=== PATIENT | female | born 1950 | race Caucasian/White ===

== ENCOUNTER → 2017-09-24 | Outpatient (CLI) | payer OTHER, MEDICAID | END | disposition home or self-care (01) | LOC: KCIC MAMMO 10:14 | DX: Z12.31 Encounter for screening mammogram for malignant neoplasm of breast (principal) | CPT/HCPCS: 77063; 77067 ==

== ENCOUNTER → 2017-10-02 | Outpatient (CLI) | payer OTHER, MEDICAID | END | disposition home or self-care (01) | LOC: KCIC DEXA 09:49 | DX: Z13.820 Encounter for screening for osteoporosis (principal); M81.0 Age-related osteoporosis without current pathological fracture; M85.88 Other specified disorders of bone density and structure, other site; Z78.0 Asymptomatic menopausal state | CPT/HCPCS: 77080 ==

== ENCOUNTER → 2018-07-08 | Outpatient (CLI) | payer OTHER, MEDICAID ==
--- NOTE | 2018-07-08 12:57 | KCIC ---
CT HEAD WO CONTRAST dated 07/08/2018 11:30 AM Indication: Vertigo, dizziness tendinosis hypertension Comparison: No comparison is available. Technique: Contiguous axial imaging the head was performed from skull base to vertex. One or more of the following individualized dose reduction techniques were utilized for this examination: 1. Automated exposure control 2. Adjustment of the mA and/or kV according to patient size 3. Use of iterative reconstruction technique Findings: Ventricles and sulci are within normal limits for age. No midline shift or mass effect. Brain parenchyma is of normal attenuation. No hemorrhage or extra axial collection. Posterior fossa and brainstem unremarkable. Mild mucosal thickening of the anterior ethmoid air cells. The visualized paranasal sinuses and mastoid air cells are otherwise clear. No apparent calvarial abnormality. IMPRESSION: 1. No evidence of acute intracranial abnormality. 2. Mild sinus disease. Electronically signed by: Fish Butler MD (07/08/2018 12:53 PM) [id number]
== END | disposition home or self-care (01) ==
LOC: KCIC CT 11:19
PROVIDERS: ATTEND Nurse Practitioner Family
DX: J32.9 Chronic sinusitis, unspecified (principal); R42 Dizziness and giddiness; H93.19 Tinnitus, unspecified ear; I10 Essential (primary) hypertension
CPT/HCPCS: 70450

== ENCOUNTER → 2018-09-26 | Outpatient (CLI) | payer OTHER, MEDICAID ==
--- NOTE | 2018-09-26 18:08 | KCIC ---
Bilateral digital screening mammograms with 3-D tomosynthesis: Reason for examination: Routine screening. Comparison is made to previous studies dated 09/24/2017 and 09/27/2016. Bilateral mammograms in CC and oblique projections were obtained with 2-D imaging and 3-D tomosynthesis imaging on a Siemens Inspiration unit and reviewed on the workstation. Interpretation was made with the benefit of CAD. The skin and nipples show no abnormalities. No abnormal axillary lymph nodes are seen. The breast parenchyma is extremely dense. (Breast density: Category D.) There are no dominant masses, suspicious calcifications or architectural distortion. Benign calcifications are present. Impression: No evidence of malignancy. Recommend routine screening. Your patient's mammogram demonstrates that she has dense breast tissue (breast density category C or D), which could hide abnormalities, and if she has other risk factors for breast cancer that have been identified, she might benefit from supplemental screening tests that may be suggested by you as her ordering physician. Dense breast tissue, in and of itself, is a relatively common condition. Therefore, this information is not provided to cause undue concern, but rather to raise your awareness and to promote discussion with your patient regarding the presence of other risk factors, in addition to dense breast tissue. Your patient's mammography results will be sent to her. BI-RAD Category 2: Benign. "Our facility is accredited by the [employer] Mammography Program." This patient's information has been entered into a reminder system for the patient to be notified with the results of her examination and a target date for the next mammogram. Electronically signed by: Cindy Cowan MD (09/26/2018 6:03 PM) [id number]
== END | disposition home or self-care (01) ==
LOC: KCIC MAMMO 12:14
PROVIDERS: ATTEND Nurse Practitioner Family
DX: Z12.31 Encounter for screening mammogram for malignant neoplasm of breast (principal)
CPT/HCPCS: 77063; 77067

== ENCOUNTER 2019-07-14 17:05 | Inpatient (IN) | payer OTHER, MEDICAID ==
[~2019-07-14] VITALS: Ht 160 cm; Wt 62.8 kg
[2019-07-14] VITALS (8 sets, daily range): BP systolic 90–122; BP diastolic 52–73
[2019-07-14] MEDS ORDERED: PIP/TAZO PER PHARMACY MC PRN (20:00)
[2019-07-14 20:34] LABS: BASO % 0 % (0-3); EOS # 1.9 x10^3/uL (0.0-0.7); EOS % 9 % (0-3); HEMATOCRIT 25.2 % (36.0-47.0); HEMOGLOBIN 8.5 g/dL (12.0-15.5); LYMPH # 0.4 x10^3/uL (1.0-4.8); LYMPH % 2 % (24-48); MEAN CORPUSCULAR HEMOGLOBIN 35 pg (25-35); MEAN CORPUSCULAR HGB CONC 34 g/dL (31-37); MEAN CORPUSCULAR VOLUME 105 fL (79-100); MONO # 0.4 x10^3/uL (0.0-1.1); MONO % 2 % (0-9); NEUT # 17.4 x10^3/uL (1.8-7.7); NEUT % 87 % (31-73); PLATELET COUNT 115 x10^3/uL (140-400); RED CELL DISTRIBUTION WIDTH 13.7 % (11.5-14.5); WHITE BLOOD COUNT 20.1 x10^3/uL (4.0-11.0)
[2019-07-14] MEDS: SODIUM BICARBONATE VIAL 150 MEQ in IV DEXTROSE 5% 1,000 ML IV SCH (20:37)
[2019-07-14 20:49] LABS: ALBUMIN/GLOBULIN RATIO 0.6 (1.0-1.7); CREATININE 3.8 mg/dL (0.6-1.0); GFR 11.7; POTASSIUM 4.8 mmol/L (3.5-5.1); TOTAL BILIRUBIN 0.6 mg/dL (0.2-1.0); TOTAL PROTEIN 5.5 g/dL (6.4-8.2)
[2019-07-14 21:09] LABS: % BANDS 10 % (0-9); % LYMPHS 3 % (24-48); % MONOS 4 % (0-10); PLT ESTIMATE DECREASED (ADEQUATE)
[2019-07-14 21:10] LABS: HYPOCHROMIA MOD; TOXIC GRANULATION MOD; TOXIC VACUOLATION MOD
[2019-07-14] MEDS: PIPERACILLIN/TAZOBACTAM 2.25 GM in IV NORMAL SALINE 50ML 50 ML IV SCH (22:01)
[2019-07-14] MEDS ORDERED: RANI150C PO (22:09)
[2019-07-14] MEDS ORDERED: MELO7.5T29 PO (22:09)
[2019-07-14] MEDS ORDERED: LOSA100T14 PO (22:09)
[2019-07-14] MEDS ORDERED: AMLO10TA8 PO (22:09)
[2019-07-14] MEDS ORDERED: TRAM50TA PO (22:09)
[2019-07-14] MEDS ORDERED: LEVO100T PO (22:09)
[2019-07-14] MEDS ORDERED: ONDANSETRON PF 4 MG/2 ML VIAL. IVP PRN (22:30)
--- NOTE | 2019-07-14 22:42 | NUR ---
Patient arrived on unit at 1845 accompanied by EMS. Patient alert and oriented, able to answer admission questions when asked, but is slightly forgetful and easily reoriented. VSS. Notified Dr. Mai of transfer, updated on status and clarified written orders to be transcribed. Notified Dr. Schmitt of consult and current fluid orders, orders received to increase rate of fluids to 150 mls/hr. Positive sepsis screen, Dr. Mai aware and ID consult routine for the AM, antibiotics already ordered, urine culture and blood cultures drawn at [facility] prior to transfer. Family is at bedside, aware of the situation.
[2019-07-14] MEDS ORDERED: CHLO4TAB20 PO (23:00)
[2019-07-14] MEDS ORDERED: FAMOTIDINE 20 MG TABLET. PO SCH (23:00)
[2019-07-15] VITALS (23 sets, daily range): BP systolic 83–140; BP diastolic 47–81
[2019-07-15] MEDS ORDERED: PIP/TAZO PER PHARMACY MC PRN
[2019-07-15] MEDS: SODIUM BICARBONATE VIAL 150 MEQ in IV DEXTROSE 5% 1,000 ML IV SCH ×3 (05:34→20:00)
[2019-07-15] MEDS: PIPERACILLIN/TAZOBACTAM 2.25 GM in IV NORMAL SALINE 50ML 50 ML IV SCH ×3 (05:34→22:17)
[2019-07-15] MEDS: LEVOTHYROXINE 100 MCG TABLET PO SCH (05:41)
[2019-07-15] MEDS ORDERED: LEVOTHYROXINE 150 MCG TABLET PO SCH (06:00)
[2019-07-15 06:33] LABS: BASO % 0 % (0-3); EOS # 0.1 x10^3/uL (0.0-0.7); EOS % 1 % (0-3); HEMATOCRIT 22.9 % (36.0-47.0); HEMOGLOBIN 7.9 g/dL (12.0-15.5); LYMPH # 0.1 x10^3/uL (1.0-4.8); LYMPH % 1 % (24-48); MEAN CORPUSCULAR HEMOGLOBIN 35 pg (25-35); MEAN CORPUSCULAR HGB CONC 34 g/dL (31-37); MEAN CORPUSCULAR VOLUME 103 fL (79-100); MONO # 0.4 x10^3/uL (0.0-1.1); MONO % 3 % (0-9); NEUT # 14.3 x10^3/uL (1.8-7.7); NEUT % 96 % (31-73); PLATELET COUNT 92 x10^3/uL (140-400); RED BLOOD COUNT 2.23 x10^6/uL (3.50-5.40); RED CELL DISTRIBUTION WIDTH 13.3 % (11.5-14.5); WHITE BLOOD COUNT 14.9 x10^3/uL (4.0-11.0)
[2019-07-15 06:48] LABS: CALCIUM 6.8 mg/dL (8.5-10.1); CREATININE 3.9 mg/dL (0.6-1.0); GFR 11.4; POTASSIUM 4.2 mmol/L (3.5-5.1)
[2019-07-15] MEDS: amLODIPine BESYLATE 10 MG TABLET PO SCH (09:00)
[2019-07-15] MEDS ORDERED: SODIUM CHLORIDE 3 % 200 ML IV ONE (10:15)
--- NOTE | 2019-07-15 10:28 | PDOC2 ---
CONSULT Date of Consult Date of Consult DATE: 07/15/19 TIME: 10:21 Reason for Consult Reason for Consult: LEONIDAS Referring Physician Referring Physician: AMY Identification/Chief Complaint Chief Complaint WEAKNESS WITH N/V/DIARRHEA Source Source: Chart review, Patient History of Present Illness Reason for Visit: THIS IS A 69 YR OLD WITH SEVERAL DAY HX OF N/V/D. FELT COLD AND CHILLS AND HAD FEVERS. WENT TO [facility] AND WAS NOTED TO HAVE HYPOTENSION AND SEVERAL MET ABNORMALITIES. SHE HAS LEUCOCYTOSIS, MET ACIDOSIS WITH HIGH AG AND SEVERE HYPONATREMIA. SHE ALSO HAS LEONIDAS WITH CR OF 3.9. NA OF 118. CURRENTLY IN THE ICU. DISCUSSED CASE WITH DR REYES. CORTISOL LEVEL NEARLY 60. TSH WNL. NO CKD NOTED BASED ON OLD LABS. NO NEPHROTOXINS BUT HAS BEEN ON MOBIC AND LOSARTAN. NO HX OF ANY KIDNEY OR BLADDER SURGERIES HEMATURIA DYSURIA OR FREQUENCY NOTED Past Medical History Cardiovascular: HTN, Hyperlipidemia GI: GERD Musculoskeletal: Osteoarthritis Endocrine: Hypothyroidism Family History Family History: Hypertension Social History No ALCOHOL: none Drugs: None Lives: with Family Current Medications Current Medications Current Medications Piperacillin Sod/ Tazobactam Sod (Zosyn Per Pharmacy) 1 each PRN DAILY PRN MC SEE COMMENTS; Start 07/14/19 at 20:00 Linezolid/Dextrose 300 ml @ 300 mls/hr Q12HR IV Last administered on 07/15/19at 09:23; Start 07/14/19 at 21:00 Piperacillin Sod/ Tazobactam Sod (Zosyn Per Pharmacy) 1 each PRN DAILY PRN MC SEE COMMENTS; Start 07/15/19 at 00:00; Status UNV Piperacillin Sod/ Tazobactam Sod 2.25 gm/Sodium Chloride 50 ml @ 100 mls/hr Q8HRS IV Last administered on 07/15/19at 05:34; Start 07/14/19 at 22:00 Sodium Bicarbonate 150 meq/Dextrose 1,150 ml @ 150 mls/hr Q7H40M IV Last administered on 07/15/19at 05:34; Start 07/14/19 at 21:00 Famotidine (Pepcid) 20 mg QHS PO ; Start 07/14/19 at 23:00; Stop 07/14/19 at 23:02; Status DC Levothyroxine Sodium (Synthroid) 300 mcg DAILY06 PO ; Start 07/15/19 at 06:00; Status Cancel Ondansetron HCl (Zofran) 4 mg PRN Q4HRS PRN IVP NAUSEA/VOMITING 1ST CHOICE; Start 07/14/19 at 22:30 Amlodipine Besylate (Norvasc) 10 mg DAILY PO ; Start 07/15/19 at 09:00 Famotidine (Pepcid) 20 mg QHS PO ; Start 07/15/19 at 21:00 Levothyroxine Sodium (Synthroid) 100 mcg DAILY06 PO Last administered on 07/15/19at 05:41; Start 07/15/19 at 06:00 Sodium Chloride 200 ml @ 50 mls/hr 1X ONCE IV ; Start 07/15/19 at 10:15; Stop 07/15/19 at 14:14 Active Scripts Active Reported Chlorpheniramine Maleate 4 Mg Tablet 1 Tab PO Q4HRS 3 Days Synthroid (Levothyroxine Sodium) 100 Mcg Tablet 1 Tab PO DAILY Ranitidine Hcl 150 Mg Capsule 150 Mg PO DAILY Tramadol Hcl 50 Mg Tablet 50 Mg PO Q4HRS PRN Meloxicam 7.5 Mg Tablet 1 Tab PO DAILY 30 Days Losartan Potassium 100 Mg Tablet 100 Mg PO DAILY Amlodipine Besylate 10 Mg Tablet 10 Mg PO DAILY Allergies Allergies: Coded Allergies: No Known Drug Allergies (Unverified , 07/14/19) ROS Review of System FULL ROS DONE, NOTED IN THE HPI OTHERWISE NEG Physical Exam General: Alert, Oriented X3, Cooperative, mild distress HEENT: Atraumatic, PERRLA Lungs: Clear to auscultation Heart: Regular rate Abdomen: Normal bowel sounds, Soft, No tenderness Extremities: No clubbing Skin: No breakdown Neuro: Normal speech, Sensation intact Psych/Mental Status: Mental status NL, Mood NL MUSCULOSKELETAL: No joint tenderness, No deformity, No swelling Vitals VITALS Vital Signs Date Time Temp Pulse Resp B/P (MAP) Pulse Ox O2 Delivery O2 Flow Rate FiO2 07/15/19 06:00 87 18 128/76 (93) 95 Nasal Cannula 2.0 07/15/19 04:00 98.3 98.3 Labs Labs Laboratory Tests Test 07/14/19 20:15 07/15/19 06:15 White Blood Count 20.1 x10^3/uL (4.0-11.0) 14.9 x10^3/uL (4.0-11.0) Red Blood Count 2.40 x10^6/uL (3.50-5.40) 2.23 x10^6/uL (3.50-5.40) Hemoglobin 8.5 g/dL (12.0-15.5) 7.9 g/dL (12.0-15.5) Hematocrit 25.2 % (36.0-47.0) 22.9 % (36.0-47.0) Mean Corpuscular Volume 105 fL (79-100) 103 fL (79-100) Mean Corpuscular Hemoglobin 35 pg (25-35) 35 pg (25-35) Mean Corpuscular Hemoglobin Concent 34 g/dL (31-37) 34 g/dL (31-37) Red Cell Distribution Width 13.7 % (11.5-14.5) 13.3 % (11.5-14.5) Platelet Count 115 x10^3/uL (140-400) 92 x10^3/uL (140-400) Neutrophils (%) (Auto) 87 % (31-73) 96 % (31-73) Lymphocytes (%) (Auto) 2 % (24-48) 1 % (24-48) Monocytes (%) (Auto) 2 % (0-9) 3 % (0-9) Eosinophils (%) (Auto) 9 % (0-3) 1 % (0-3) Basophils (%) (Auto) 0 % (0-3) 0 % (0-3) Neutrophils # (Auto) 17.4 x10^3/uL (1.8-7.7) 14.3 x10^3/uL (1.8-7.7) Lymphocytes # (Auto) 0.4 x10^3/uL (1.0-4.8) 0.1 x10^3/uL (1.0-4.8) Monocytes # (Auto) 0.4 x10^3/uL (0.0-1.1) 0.4 x10^3/uL (0.0-1.1) Eosinophils # (Auto) 1.9 x10^3/uL (0.0-0.7) 0.1 x10^3/uL (0.0-0.7) Basophils # (Auto) 0.0 x10^3/uL (0.0-0.2) 0.0 x10^3/uL (0.0-0.2) Segmented Neutrophils % 83 % (35-66) Band Neutrophils % 10 % (0-9) Lymphocytes % 3 % (24-48) Monocytes % 4 % (0-10) Toxic Granulation Mod Toxic Vacuolation Mod Dohle Bodies Few Platelet Estimate Decreased (ADEQUATE) Hypochromasia Mod Microcytosis Macrocytosis Slight Sodium Level 119 mmol/L (136-145) 118 mmol/L (136-145) Potassium Level 4.8 mmol/L (3.5-5.1) 4.2 mmol/L (3.5-5.1) Chloride Level 87 mmol/L (98-107) 85 mmol/L (98-107) Carbon Dioxide Level 17 mmol/L (21-32) 21 mmol/L (21-32) Anion Gap 15 (6-14) 12 (6-14) Blood Urea Nitrogen 55 mg/dL (7-20) 58 mg/dL (7-20) Creatinine 3.8 mg/dL (0.6-1.0) 3.9 mg/dL (0.6-1.0) Estimated GFR (Cockcroft-Gault) 11.7 11.4 BUN/Creatinine Ratio 14 (6-20) Glucose Level 99 mg/dL (70-99) 109 mg/dL (70-99) Lactic Acid Level 1.6 mmol/L (0.4-2.0) Calcium Level 7.0 mg/dL (8.5-10.1) 6.8 mg/dL (8.5-10.1) Total Bilirubin 0.6 mg/dL (0.2-1.0) Aspartate Amino Transf (AST/SGOT) 79 U/L (15-37) Alanine Aminotransferase (ALT/SGPT) 131 U/L (14-59) Alkaline Phosphatase 163 U/L (46-116) Total Protein 5.5 g/dL (6.4-8.2) Albumin 2.0 g/dL (3.4-5.0) Albumin/Globulin Ratio 0.6 (1.0-1.7) Laboratory Tests Test 07/14/19 20:15 07/15/19 06:15 White Blood Count 20.1 x10^3/uL (4.0-11.0) 14.9 x10^3/uL (4.0-11.0) Red Blood Count 2.40 x10^6/uL (3.50-5.40) 2.23 x10^6/uL (3.50-5.40) Hemoglobin 8.5 g/dL (12.0-15.5) 7.9 g/dL (12.0-15.5) Hematocrit 25.2 % (36.0-47.0) 22.9 % (36.0-47.0) Mean Corpuscular Volume 105 fL (79-100) 103 fL (79-100) Mean Corpuscular Hemoglobin 35 pg (25-35) 35 pg (25-35) Mean Corpuscular Hemoglobin Concent 34 g/dL (31-37) 34 g/dL (31-37) Red Cell Distribution Width 13.7 % (11.5-14.5) 13.3 % (11.5-14.5) Platelet Count 115 x10^3/uL (140-400) 92 x10^3/uL (140-400) Neutrophils (%) (Auto) 87 % (31-73) 96 % (31-73) Lymphocytes (%) (Auto) 2 % (24-48) 1 % (24-48) Monocytes (%) (Auto) 2 % (0-9) 3 % (0-9) Eosinophils (%) (Auto) 9 % (0-3) 1 % (0-3) Basophils (%) (Auto) 0 % (0-3) 0 % (0-3) Neutrophils # (Auto) 17.4 x10^3/uL (1.8-7.7) 14.3 x10^3/uL (1.8-7.7) Lymphocytes # (Auto) 0.4 x10^3/uL (1.0-4.8) 0.1 x10^3/uL (1.0-4.8) Monocytes # (Auto) 0.4 x10^3/uL (0.0-1.1) 0.4 x10^3/uL (0.0-1.1) Eosinophils # (Auto) 1.9 x10^3/uL (0.0-0.7) 0.1 x10^3/uL (0.0-0.7) Basophils # (Auto) 0.0 x10^3/uL (0.0-0.2) 0.0 x10^3/uL (0.0-0.2) Segmented Neutrophils % 83 % (35-66) Band Neutrophils % 10 % (0-9) Lymphocytes % 3 % (24-48) Monocytes % 4 % (0-10) Toxic Granulation Mod Toxic Vacuolation Mod Dohle Bodies Few Platelet Estimate Decreased (ADEQUATE) Hypochromasia Mod Microcytosis Macrocytosis Slight Sodium Level 119 mmol/L (136-145) 118 mmol/L (136-145) Potassium Level 4.8 mmol/L (3.5-5.1) 4.2 mmol/L (3.5-5.1) Chloride Level 87 mmol/L (98-107) 85 mmol/L (98-107) Carbon Dioxide Level 17 mmol/L (21-32) 21 mmol/L (21-32) Anion Gap 15 (6-14) 12 (6-14) Blood Urea Nitrogen 55 mg/dL (7-20) 58 mg/dL (7-20) Creatinine 3.8 mg/dL (0.6-1.0) 3.9 mg/dL (0.6-1.0) Estimated GFR (Cockcroft-Gault) 11.7 11.4 BUN/Creatinine Ratio 14 (6-20) Glucose Level 99 mg/dL (70-99) 109 mg/dL (70-99) Lactic Acid Level 1.6 mmol/L (0.4-2.0) Calcium Level 7.0 mg/dL (8.5-10.1) 6.8 mg/dL (8.5-10.1) Total Bilirubin 0.6 mg/dL (0.2-1.0) Aspartate Amino Transf (AST/SGOT) 79 U/L (15-37) Alanine Aminotransferase (ALT/SGPT) 131 U/L (14-59) Alkaline Phosphatase 163 U/L (46-116) Total Protein 5.5 g/dL (6.4-8.2) Albumin 2.0 g/dL (3.4-5.0) Albumin/Globulin Ratio 0.6 (1.0-1.7) Assessment/Plan Assessment/Plan IMP LEONIDAS-ATN SEPSIS-CRITICALLY ILL HYPOTENSION SEVERE HYPONATREMIA MET ACIDOSIS LEUCOCYTOSIS PROB GASTROENTERITIS PLAN HOLD MOBIC HOLD LOSARTAN HCO3 GTT 3% SALINE WILL FOLLOW D/W BAKARI WAYNE MD Jul 15, 2019 10:28
[2019-07-15] MEDS ORDERED: SALIVA STIMULANT AGENT 44ML SPRAY BOTTLE. PO PRN (10:45)
[2019-07-15] MEDS: ACETAMINOPHEN 325 MG TABLET. PO PRN ×3 (10:52→20:53)
[2019-07-15 11:05] LABS: PROTHROMBIN TIME PATIENT 17.4 SEC (11.7-14.0)
--- NOTE | 2019-07-15 11:11 | HP ---
ADMIT DATE: 07/14/2019 HISTORY OF PRESENT ILLNESS: The patient is a 69-year-old female patient who was transferred yesterday from [facility] where she was admitted through the emergency room complaining of nausea, vomiting and diarrhea. The patient stated that her symptoms started last Saturday and on Saturday, she was having lots of body aches as well as chills, stating that she feels like she has a flu. She does indicate that she had flu shot back in June. She denied any chest pain or shortness of breath, have a little bit of cough. It was nonproductive. She stated that she has not been able to keep her medications down due to vomiting. Her aches and pains are moderate. She was evaluated in the emergency room. Her lab work showed she has marked hyponatremia with a serum sodium of 121. Her creatinine was 3.1. I did contact Dr. Zhao at [facility] and he stated that her kidney function was normal in 10/2018. Her creatinine was 0.9 mg/dL and her serum sodium at that time was 136. She carries a diagnosis of leukopenia and macrocytosis and was followed by Dr. Khurram Celis at [facility] and in fact they contacted them and get some information that showed that she has actually microcytosis and leukopenia, but she does not have any other malignancy that I was concerned about. She was also noted to have hypertension and hypothyroidism. While at [facility], we did scan her bladder because of impaired kidney function and actually we drained about 400 mL of urine that seemed to be infected and therefore it was submitted for culture and sensitivity yesterday around midday. The patient became more and more tachypneic. We will repeat her lab work and eventually the patient spiked her temperature up to 102.3. Her blood and urine was sent for culture and sensitivity. Her blood gases showed that her pH was 7.3, pCO2 was 22, pO2 of 72 and bicarbonate was only 11 and her oxygen saturation was 91% on FiO2 of 36%. Her white cell count has dramatically risen to 20,000. Her hemoglobin and hematocrit dropped down slightly from 8.3 and 24, MCV 104 and platelet was 130,000. Her repeat labs yesterday afternoon showed that her serum sodium was 120, potassium 4.2, chloride 89, bicarbonate 17, anion gap of 14, BUN 51, creatinine 3.6 and estimated GFR was 12.5. Her glucose was 113, calcium was 6.7. Total bilirubin, AST, alkaline phosphatase are all elevated and rising. Her total protein was 5.3, albumin 2. TSH was normal as well as her morning cortisol was high at 57 excluding the possibility of [place] disease cause of her hyponatremia. We did give her almost 2 liters of fluid and started her on Zosyn and Zyvox and was transferred to [facility] with diagnosis of acute kidney injury, likely multifactorial as she was on meloxicam, Losartan and has had multiple episodes of nausea, vomiting and diarrhea. She has also hyponatremia that her son said that chronic for which she was taking salt tablets, although according to Dr. Zhao, her serum sodium was normal in 10/2018. PAST MEDICAL HISTORY: Significant for hypertension, hypothyroidism, chronic hyponatremia, scoliosis, macrocytosis and leukopenia. She is followed by Dr. Khurram Celis at [facility] and her primary care physician is Dr. Liborio Zhao in [facility]. PAST SURGICAL HISTORY: Unremarkable. ALLERGIES: Has no known drug allergies. MEDICATIONS: She was on following medications at home, amlodipine 10 mg once a day, losartan potassium 100 mg once a day, meloxicam 7.5 mg once a day, tramadol 50 mg every 6 hours as needed, acetaminophen and chlorpheniramine 1 tablet every 4 hours, ranitidine 150 mg once a day and levothyroxine 100 mcg once a day. FAMILY HISTORY: She has one older sister who is still alive, but does not know anything about her medical problem. Her father at age of 66 in a farm accident. Mother at age of 92 of natural causes. SOCIAL HISTORY: She lives with her son and her [id number]. She has one daughter. She never smoked. Drinks alcohol occasionally and drinks mostly wine. She does not use any drugs. 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 REVIEW OF SYSTEMS: As of this morning, she complained of headache and dry mouth. She denied any blurring of vision, cataract, glaucoma or macular degeneration. Denied any earache, tinnitus or sensorineural deafness. Denied any nosebleeds, stuffy nose or postnasal drip, but she did complain of sore throat. Has had multiple episodes of nausea, vomiting and diarrhea prior to arrival to [facility], but denied any hematemesis, melena or hematochezia. Denied any dysuria, frequency or hematuria. Denied any chest pain or shortness of breath. Did have cough with scanty sputum. Denied any chills, rigors or fever. She did spike her temperature yesterday up to 102.9. Denied any dizziness, lightheadedness, or vertigo. PHYSICAL EXAMINATION: GENERAL: When I saw her this morning, she was resting slightly propped up in bed, in no apparent respiratory distress. She was pale, no jaundiced, cyanosis or thyromegaly. No jugular venous distention. No limb edema. VITAL SIGNS: Her heart rate was 87, blood pressure was 128/76, temperature was 98.3, respiratory rate was 18 and oxygen saturation was 95% on 2 liters of oxygen. HEAD, EYES, EARS, NOSE AND THROAT: Normocephalic, atraumatic. NECK: Supple. HEART: Showed normal first and second heart sounds. No gallop or murmur. CHEST: Clear to auscultation. No crepitation or rhonchi. ABDOMEN: Distended, soft, nontender. No guarding or rigidity. No organomegaly. All hernial orifice intact. Bowel sounds normal. NEUROLOGIC: She was awake, alert, responding appropriately. All cranial nerves intact. She moves extremities without difficulty. She normally ambulates without assistance or assistive devices. Her intake was 1468, output was as recorded. LABORATORY DATA: Her lab work this morning showed a white cell count 14,900, hemoglobin 7.9, hematocrit 22.9, MCV 103 and platelet count of 92,000. Her chemistry continue to show a serum sodium of 118, potassium 4.2, chloride 85, bicarbonate 21, anion gap of 12, BUN 58, creatinine 3.9, estimated GFR was 11.4 and glucose was 109. Calcium was 6.8. ASSESSMENT AND PLAN: 1. Acute kidney injury, multifactorial including probably dehydration. 2. Recurrent bouts of nausea and vomiting. She was on meloxicam as well as losartan that was on hold 3. Chronic hyponatremia for which she was on salt tablets. However, her primary care physician stated that her serum sodium was 136 and creatinine was 0.9 in 10/2018. Her TSH and morning cortisol are in fact the TSH was normal. Cortisol was high at 57 excluding the possibility of hypothyroidism and Paul's disease as cause of her chronic hyponatremia and indicates probably syndrome of inappropriate antidiuretic hormone as a likely cause. Other medical problems include hypothyroidism. 4. Hypertension. 5. Leukopenia and in fact, the patient now has leukocytosis, has also macrocytosis. Her MCV is high at 105. She has also anemia found with probably dilutional as her hemoglobin and hematocrit was on arrival to [facility] was 10.8 and 31.4. She is also developing thrombocytopenia. Her platelet is dropping down from 203,000 to 92,000 raising the possibility that she might perhaps have microangiopathic hemolytic anemia or hemolytic uremic syndrome. PLAN: My plan is to arrange for DIC and consult the Hematology. We have already consulted the infectious disease specialist as well as the technology lab teacher. She probably would require eventually hemodialysis if the creatinine is persistently rising. GABRIEL REYES MD DR: ENRIQUE/jennyfer JOB#: [id number] / [id number]
[2019-07-15 11:23] LABS: D-DIMER 7.53 ug/mlFEU (0.00-0.50)
--- NOTE | 2019-07-15 13:18 | PDOC ---
Provider Note Provider Note Pt seen and examined ID consult dictated [id number] IMP: Sepsis Leucocytosis in pt with leucopenia UTI Nausea ,vomiting ,diarrhea poa ,now resolved anemia, thrombocytopenia LEONIDAS Severe hyponatremia Metabolic acidosis abn lfts h/o leucopenia and anemia REC;' Zosyn dc linezolid start daptomycin f/u c/s and labs KHADRA SALCEDO MD Jul 15, 2019 13:18
--- NOTE | 2019-07-15 13:33 | CONS ---
DATE OF CONSULTATION: 07/15/2019 REFERRING PHYSICIAN: Radha Mai MD REASON FOR CONSULTATION: Sepsis. HISTORY OF PRESENT ILLNESS: A 69-year-old female, transferred from [facility] where she first presented to the ER with complaints of nausea, vomiting, diarrhea, which started last Saturday along with generalized body aches. She felt like she was coming down with flu. She had a flu screen done, which was negative. Her white count initially was normal around 10. On 07/13/2019, it came up to 14 and yesterday it was around 20,000. The patient's sodium was 121 and creatinine was 3.1. Her baseline creatinine is normal. She also has a diagnosis of leukopenia and macrocytosis, for which she follows up with Dr. Khurram Celis at [facility]. The patient denies taking any new medication. She had UA, which showed pyuria. Cultures have been submitted which are pending at this time. The patient became febrile at 102. Blood cultures were sent. Her hemoglobin dropped to 8.3. Platelets started dropping. Her sodium also came down to 120 with her creatinine of 3.6. LFTs were rising. There was concern about hemolysis. Also, cortisol level was done to rule out Sacramento's disease, which was high at 57. She received IV fluid bolus. She was started on Zyvox and Zosyn and transferred to [facility] for further evaluation and treatment. She was admitted to ICU. Here, her sodium dropped to 119 with a bicarbonate of 17, calcium of 7.0. LFTs remained elevated. LDH was 434. Her WBC was 20.1, platelets were 115, hemoglobin of 8.5. She also had received ceftriaxone at [facility]. She underwent ultrasound of the abdomen, which showed nonspecific mild gallbladder wall thickening. No evidence of cholelithiasis. If there is concern of cholecystitis, consider hepatobiliary imaging. Debris within the bladder. Ureteral were not visualized, 2 cm left renal cyst. ID consult has been requested for antibiotic management. Today, the patient is on hypotonic saline bicarbonate drip in ICU, on O2 by nasal cannula. She states she has a dry mouth and feels tired. Denies any headache, sore throat, difficulty swallowing, nausea, vomiting and diarrhea has resolved. No abdominal pain. She did have dysuria prior to admission. Denies any history of recurrent urinary tract infection. Denies any recent antibiotics. Denies any recent procedure. Denies any recent travel or new antibiotics. She does have degenerative arthritis affecting her joints in the hands and the left knee. Usually, she has leukopenia and anemia for which she follows up with Dr. Escobedo, patient accounts manager, at [facility] as above. PAST MEDICAL HISTORY: Chronic hyponatremia Leukopenia, anemia, macrocytosis, hypertension, hypothyroidism, scoliosis, and DJD. PAST SURGICAL HISTORY: None. ALLERGIES: No known drug allergies. SOCIAL HISTORY: Denies smoking, ETOH, or illicit drug use. Lives with her son and [id number] and 2 grandchildrens. FAMILY HISTORY: As per HPI. REVIEW OF SYSTEMS: Negative except for above in HPI. PHYSICAL EXAMINATION: VITAL SIGNS: Temperature 98.3, pulse 87, respiratory rate 18, blood pressure 128/76, and oxygen saturation 95% on 2 liters by nasal cannula. GENERAL: Alert, awake, pleasant female, lying in bed comfortably, in no acute distress, appears tired, pleasant, and cooperative. HEENT: Normocephalic, atraumatic. Anicteric. Dry oral mucosa, no thrush. No oropharyngeal exudate. NECK: Supple. LUNGS: Clear bilaterally. No wheezing. HEART: S1, S2. No gallops or murmurs. ABDOMEN: Soft, nontender, nondistended, no rebound or guarding. EXTREMITIES: No edema, no cyanosis, no clubbing. NEUROLOGIC: Moves all 4 extremities. PSYCHIATRIC: Cooperative, appropriate mood and affect. LABORATORY DATA: WBC 14.9 and was 20, hemoglobin 7.9 and was 8.5, hematocrit 22.9, platelets 92 and was 115 and was normal at [facility]. Sodium 118 and was 119 yesterday, potassium 4.2, chloride 85, bicarbonate 21, BUN 58, creatinine 3.9, glucose 109, lactate 1.6, LDH 434, calcium 6.8. IMAGING DATA: None here. IMPRESSION: 1. Sepsis. 2. Leukocytosis with bandemia. 3. Nausea, vomiting, and diarrhea. 4. Pyuria , Urinary tract infection. UC pending at this time 5. Acute kidney injury/acute tubular necrosis. 6. Metabolic acidosis. 7. Severe hyponatremia with underlying history of chronic hyponatremia. 8. Abnormal liver function tests. 9. Hypocalcemia. 10. Anemia. 11. Thrombocytopenia. RECOMMENDATIONS: 1. Continue empiric Zosyn. 2. Discontinue linezolid due to thrombocytopenia. 3. We will start the patient on empiric daptomycin, renal dosing. 4. Follow up labs and cultures from [facility].D/W Micro negative so far 5. Continue supportive care. Thank you, Dr. Mai, for consulting Infectious Disease to participate in this patient's care. If you have any questions, do not hesitate to contact me. Discussed with nursing staff. KHADRA SALCEDO MD DR: AARTI/jennyfer JOB#: [id number] / [id number] JUNIOR
--- NOTE | 2019-07-15 13:47 | NUR ---
SS following for discharge planning. SS reviewed pt chart. Pt is from home with family and is currently requiring oxygen. SS will continue to follow for discharge planning.
[2019-07-15] MEDS ORDERED: DAPTOmycin (GENERIC) IVPB 390 MG in IV NORMAL SALINE 50ML 50 ML IV SCH (14:00)
[2019-07-15] MEDS: FAMOTIDINE 20 MG TABLET. PO SCH (20:53)
--- NOTE | 2019-07-15 21:46 | NUR ---
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 Dr. Sergei tanner, updated on patient condition, orders received to give Xanax 0.5 mg Q6H PRN for anxiety.
[2019-07-15] MEDS: ALPRAZolam 0.5 MG TABLET PO PRN (21:54)
[2019-07-16] VITALS (24 sets, daily range): BP systolic 91–144; BP diastolic 44–68
[2019-07-16] MEDS: SODIUM BICARBONATE VIAL 150 MEQ in IV DEXTROSE 5% 1,000 ML IV SCH (00:46)
[2019-07-16] MEDS ORDERED: IPRATRPIUM/ALBUTEROL 0.5/2.5MG 3 ML NEBU. NEB ONE (01:00)
[2019-07-16 05:28] LABS: HEMATOCRIT 23.7 % (36.0-47.0); HEMOGLOBIN 8.1 g/dL (12.0-15.5); RED BLOOD COUNT 2.34 x10^6/uL (3.50-5.40); RED CELL DISTRIBUTION WIDTH 13.4 % (11.5-14.5); WHITE BLOOD COUNT 13.8 x10^3/uL (4.0-11.0)
[2019-07-16 05:50] LABS: ALBUMIN 1.6 g/dL (3.4-5.0); ALBUMIN/GLOBULIN RATIO 0.5 (1.0-1.7); CALCIUM 6.4 mg/dL (8.5-10.1); CREATININE 4.1 mg/dL (0.6-1.0); GFR 10.7; MAGNESIUM 1.8 mg/dL (1.8-2.4); PHOSPHORUS 2.9 mg/dL (2.6-4.7); POTASSIUM 3.1 mmol/L (3.5-5.1); TOTAL BILIRUBIN 0.6 mg/dL (0.2-1.0); TOTAL PROTEIN 4.9 g/dL (6.4-8.2)
--- NOTE | 2019-07-16 06:07 | NUR ---
Critical sodium of 120 called by lab at 0553. Dr. Schmitt paged at 0600, page returned at [phone], updated on critical lab. No new orders received at this time, will decide further upon rounding today.
[2019-07-16] MEDS: LEVOTHYROXINE 100 MCG TABLET PO SCH ×2 (06:25→06:45)
[2019-07-16] MEDS: PIPERACILLIN/TAZOBACTAM 2.25 GM in IV NORMAL SALINE 50ML 50 ML IV SCH ×3 (06:25→21:38)
--- NOTE | 2019-07-16 08:10 | PDOC ---
Infectious Disease Note Subjective: Subjective Pt is having sob ,wheezing, dry mouth no f/c/n/v/d/abdo pain d/w rn on bicarb drip dec uo creat inc Vital Signs: Vital Signs Vital Signs Date Time Temp Pulse Resp B/P (MAP) Pulse Ox O2 Delivery O2 Flow Rate FiO2 07/16/19 08:00 98.7 92 23 130/54 (79) 96 Nasal Cannula 2.0 98.7 Physical Exam: PHYSICAL EXAM GENERAL: Alert, awake, pleasant female, lying in bed ,tired appearing HEENT: Normocephalic, atraumatic. Anicteric. Dry oral mucosa, no thrush. No oropharyngeal exudate. NECK: Supple. LUNGS: dec bs at bases + wheezing. HEART: S1, S2. No murmurs. ABDOMEN: Soft, nontender, nondistended, no rebound or guarding. EXTREMITIES: No edema, no cyanosis, no clubbing. NEUROLOGIC: Moves all 4 extremities. PSYCHIATRIC: Cooperative, appropriate mood and affect. Medications: Inpatient Meds: Current Medications Medications (Trade) Dose Ordered Sig/Saurabh Start Time Stop Time Status Last Admin Dose Admin Acetaminophen (Tylenol) 650 mg PRN Q4HRS PRN 07/15/19 10:45 07/15/19 20:53 650 MG Albuterol/ Ipratropium (Duoneb) 3 ml 1X ONCE 07/16/19 01:00 07/16/19 01:01 DC 07/16/19 00:59 3 ML Alprazolam (Xanax) 0.5 mg PRN Q6HRS PRN 07/15/19 21:45 07/15/19 21:54 0.5 MG Amlodipine Besylate (Norvasc) 10 mg DAILY 07/15/19 09:00 Daptomycin 390 mg/ Sodium Chloride 50 ml @ 100 mls/hr Q48H 07/15/19 14:00 07/15/19 14:56 100 MLS/HR Famotidine (Pepcid) 20 mg QHS 07/15/19 21:00 07/15/19 20:53 20 MG Levothyroxine Sodium (Synthroid) 100 mcg DAILY06 07/15/19 06:00 07/16/19 06:45 100 MCG Lidocaine (Lidoderm) 1 patch DAILY 07/16/19 09:00 UNV Linezolid/Dextrose 300 ml @ 300 mls/hr Q12HR 07/14/19 21:00 07/15/19 13:14 DC 07/15/19 09:23 300 MLS/HR Miscellaneous (Lidoderm Patch Removal) 1 ea QHS 07/16/19 21:00 UNV Ondansetron HCl (Zofran) 4 mg PRN Q4HRS PRN 07/14/19 22:30 07/15/19 15:00 4 MG Piperacillin Sod/ Tazobactam Sod (Zosyn Per Pharmacy) 1 each PRN DAILY PRN 07/15/19 00:00 UNV Piperacillin Sod/ Tazobactam Sod 2.25 gm/Sodium Chloride 50 ml @ 100 mls/hr Q8HRS 07/14/19 22:00 07/16/19 06:25 100 MLS/HR Saliva Substitute (Biotene Moisturizing Mouth) 2 spray PRN Q15MIN PRN 07/15/19 10:45 Sodium Bicarbonate 150 meq/Dextrose 1,150 ml @ 150 mls/hr Q7H40M 07/14/19 21:00 07/16/19 00:46 150 MLS/HR Sodium Chloride 200 ml @ 50 mls/hr 1X ONCE 07/15/19 10:15 07/15/19 14:14 DC 07/15/19 10:36 50 MLS/HR Labs: Lab Laboratory Tests Test 07/16/19 05:00 White Blood Count 13.8 x10^3/uL (4.0-11.0) Red Blood Count 2.34 x10^6/uL (3.50-5.40) Hemoglobin 8.1 g/dL (12.0-15.5) Hematocrit 23.7 % (36.0-47.0) Mean Corpuscular Volume 101 fL (79-100) Mean Corpuscular Hemoglobin 35 pg (25-35) Mean Corpuscular Hemoglobin Concent 34 g/dL (31-37) Red Cell Distribution Width 13.4 % (11.5-14.5) Platelet Count 75 x10^3/uL (140-400) Sodium Level 120 mmol/L (136-145) Potassium Level 3.1 mmol/L (3.5-5.1) Chloride Level 82 mmol/L (98-107) Carbon Dioxide Level 29 mmol/L (21-32) Anion Gap 9 (6-14) Blood Urea Nitrogen 60 mg/dL (7-20) Creatinine 4.1 mg/dL (0.6-1.0) Estimated GFR (Cockcroft-Gault) 10.7 BUN/Creatinine Ratio 15 (6-20) Glucose Level 130 mg/dL (70-99) Calcium Level 6.4 mg/dL (8.5-10.1) Phosphorus Level 2.9 mg/dL (2.6-4.7) Magnesium Level 1.8 mg/dL (1.8-2.4) Total Bilirubin 0.6 mg/dL (0.2-1.0) Aspartate Amino Transf (AST/SGOT) 43 U/L (15-37) Alanine Aminotransferase (ALT/SGPT) 105 U/L (14-59) Alkaline Phosphatase 118 U/L (46-116) Creatine Kinase 113 U/L (26-192) Total Protein 4.9 g/dL (6.4-8.2) Albumin 1.6 g/dL (3.4-5.0) Albumin/Globulin Ratio 0.5 (1.0-1.7) Objective: Assessment: 1. Sepsis. 2. Leukocytosis with bandemia. 3. Nausea, vomiting, and diarrhea. 4. Urinary tract infection. 5. Acute kidney injury/acute tubular necrosis. 6. Metabolic acidosis. 7. Severe hyponatremia with underlying history of chronic hyponatremia. 8. Abnormal liver function tests. 9. Hypocalcemia. 10. Anemia. 11. Thrombocytopenia. Plan: Plan of Care 1. Continue empiric Zosyn and daptomycin, renal dosing. 2 Follow up labs and cultures from [facility]. 3 Continue supportive care. KHADRA SALCEDO MD Jul 16, 2019 08:10
[2019-07-16] MEDS: ALPRAZolam 0.5 MG TABLET PO PRN ×2 (09:12→17:37)
[2019-07-16] MEDS: ACETAMINOPHEN 325 MG TABLET. PO PRN ×2 (09:12→17:37)
[2019-07-16] MEDS: amLODIPine BESYLATE 10 MG TABLET PO SCH (09:12)
[2019-07-16] MEDS: LIDOCAINE (700MG/PATCH) PATCH. TD SCH (09:13)
--- NOTE | 2019-07-16 10:19 | PDOC2 ---
CONSULT Date of Consult Date of Consult DATE: 07/16/19 TIME: 10:10 CC: pancytopenia HPI: Pt is a 69 yo female w/ sore throat, assoc w/ fever, acute, moderate, and worsening over time, currently scoliosis and sore throat bothering her, we were consulted for low blood counts, macrocytosis w/ pancytopenia, worse while here w/ infection and Abx, tranferred from [facility]. 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 ROS: currently sore throat and scoliosis pain, low appetite, SOB, wheezing, no urinary sx, o/w 10 pt ROS neg PE: Gen: NAD, resting in bed Vitals: afebrile here, reviewed Head: nc/at Neck: no LAD, supple Lungs: breathing comfortably but some upper airway gurgling Abd: s/nt/nd Ext: no signif edema, no cyanosis Psych: pleasant mood and affect Neuro: A&Ox3 Labs: wbc 13.8, Hb 8.1, plt 75, MCV 101 INR 1.5, PTT nl, fibrin 654, D dimer 7.5, Cr 4.1, Na 120, Ca 6.4, AST 43, ALT 105, LDH 434 my review of smear: no signif schistocytes, PMNs well granulated, some large mono's, dohle bodies Rads: reviewed, mmg 09/20 neg, BMD w/ osteoporosis A/P: 69 yo female w/ macrocytosis and low blood counts, worsened here being treated for UTI UTI: abx, per ID pancytopenia: may be Etoh related? thinks she had a BMBx before, could repeat prn though may improve w/ tx of infection, will follow for now, no e/o HUS on smear review, will check retic hypothyroid: on replacement n/v: zofran prn LEONIDAS: per nephro thank you kindly, will follow, please don't hesitate to call w/ ?s. Past Medical History Cardiovascular: HTN, Hyperlipidemia GI: GERD Musculoskeletal: Osteoarthritis Endocrine: Hypothyroidism Family History Family History: Hypertension Social History No ALCOHOL: none Drugs: None Lives: with Family Current Medications Current Medications Current Medications Piperacillin Sod/ Tazobactam Sod (Zosyn Per Pharmacy) 1 each PRN DAILY PRN MC SEE COMMENTS; Start 07/14/19 at 20:00 Linezolid/Dextrose 300 ml @ 300 mls/hr Q12HR IV Last administered on 07/15/19at 09:23; Start 07/14/19 at 21:00; Stop 07/15/19 at 13:14; Status DC Piperacillin Sod/ Tazobactam Sod (Zosyn Per Pharmacy) 1 each PRN DAILY PRN MC SEE COMMENTS; Start 07/15/19 at 00:00; Status UNV Piperacillin Sod/ Tazobactam Sod 2.25 gm/Sodium Chloride 50 ml @ 100 mls/hr Q8HRS IV Last administered on 07/16/19at 06:25; Start 07/14/19 at 22:00 Sodium Bicarbonate 150 meq/Dextrose 1,150 ml @ 150 mls/hr Q7H40M IV Last administered on 07/16/19at 00:46; Start 07/14/19 at 21:00 Famotidine (Pepcid) 20 mg QHS PO ; Start 07/14/19 at 23:00; Stop 07/14/19 at 23:02; Status DC Levothyroxine Sodium (Synthroid) 300 mcg DAILY06 PO ; Start 07/15/19 at 06:00; Status Cancel Ondansetron HCl (Zofran) 4 mg PRN Q4HRS PRN IVP NAUSEA/VOMITING 1ST CHOICE Last administered on 07/15/19at 15:00; Start 07/14/19 at 22:30 Amlodipine Besylate (Norvasc) 10 mg DAILY PO Last administered on 07/16/19at 09:12; Start 07/15/19 at 09:00 Famotidine (Pepcid) 20 mg QHS PO Last administered on 07/15/19at 20:53; Start 07/15/19 at 21:00 Levothyroxine Sodium (Synthroid) 100 mcg DAILY06 PO Last administered on 07/16/19at 06:45; Start 07/15/19 at 06:00 Sodium Chloride 200 ml @ 50 mls/hr 1X ONCE IV Last administered on 07/15/19at 10:36; Start 07/15/19 at 10:15; Stop 07/15/19 at 14:14; Status DC Acetaminophen (Tylenol) 650 mg PRN Q4HRS PRN PO HEADACHE Last administered on 07/16/19at 09:12; Start 07/15/19 at 10:45 Saliva Substitute (Biotene Moisturizing Mouth) 2 spray PRN Q15MIN PRN PO DRY MOUTH; Start 07/15/19 at 10:45 Daptomycin 390 mg/ Sodium Chloride 50 ml @ 100 mls/hr Q48H IV Last administered on 07/15/19at 14:56; Start 07/15/19 at 14:00; Stop 07/16/19 at 08:27; Status DC Alprazolam (Xanax) 0.5 mg PRN Q6HRS PRN PO ANXIETY / AGITATION Last adminis tered on 07/16/19 09:12; Start 07/15/19 at 21:45 Albuterol/ Ipratropium (Duoneb) 3 ml 1X ONCE NEB Last administered on 07/03 00:59; Start 07/16/19 at 01:00; Stop 07/16/19 at 01:01; Status DC Lidocaine (Lidoderm) 1 patch DAILY TD Last administered on 07/16/19 09:13; Start 07/16/19 at 09:00 Miscellaneous (Lidoderm Patch Removal) 1 ea [facility] ; Start 07/16/19 at 21:00 Active Scripts Active Reported Chlorpheniramine Maleate 4 Mg Tablet 1 Tab PO Q4HRS 3 Days Synthroid (Levothyroxine Sodium) 100 Mcg Tablet 1 Tab PO DAILY Ranitidine Hcl 150 Mg Capsule 150 Mg PO DAILY Tramadol Hcl 50 Mg Tablet 50 Mg PO Q4HRS PRN Meloxicam 7.5 Mg Tablet 1 Tab PO DAILY 30 Days Losartan Potassium 100 Mg Tablet 100 Mg PO DAILY Amlodipine Besylate 10 Mg Tablet 10 Mg PO DAILY Allergies Allergies: Coded Allergies: No Known Drug Allergies (Unverified , 07/14/19) Vitals VITALS Vital Signs Date Time Temp Pulse Resp B/P (MAP) Pulse Ox O2 Delivery O2 Flow Rate FiO2 07/16/19 09:12 96 134/59 07/16/19 08:00 98.7 23 96 Nasal Cannula 2.0 98.7 Labs Labs Laboratory Tests Test 07/14/19 20:15 07/15/19 06:15 07/16/19 05:00 White Blood Count 20.1 x10^3/uL (4.0-11.0) 14.9 x10^3/uL (4.0-11.0) 13.8 x10^3/uL (4.0-11.0) Red Blood Count 2.40 x10^6/uL (3.50-5.40) 2.23 x10^6/uL (3.50-5.40) 2.34 x10^6/uL (3.50-5.40) Hemoglobin 8.5 g/dL (12.0-15.5) 7.9 g/dL (12.0-15.5) 8.1 g/dL (12.0-15.5) Hematocrit 25.2 % (36.0-47.0) 22.9 % (36.0-47.0) 23.7 % (36.0-47.0) Mean Corpuscular Volume 105 fL (79-100) 103 fL (79-100) 101 fL (79-100) Mean Corpuscular Hemoglobin 35 pg (25-35) 35 pg (25-35) 35 pg (25-35) Mean Corpuscular Hemoglobin Concent 34 g/dL (31-37) 34 g/dL (31-37) 34 g/dL (31-37) Red Cell Distribution Width 13.7 % (11.5-14.5) 13.3 % (11.5-14.5) 13.4 % (11.5-14.5) Platelet Count 115 x10^3/uL (140-400) 92 x10^3/uL (140-400) 75 x10^3/uL (140-400) Neutrophils (%) (Auto) 87 % (31-73) 96 % (31-73) Lymphocytes (%) (Auto) 2 % (24-48) 1 % (24-48) Monocytes (%) (Auto) 2 % (0-9) 3 % (0-9) Eosinophils (%) (Auto) 9 % (0-3) 1 % (0-3) Basophils (%) (Auto) 0 % (0-3) 0 % (0-3) Neutrophils # (Auto) 17.4 x10^3/uL (1.8-7.7) 14.3 x10^3/uL (1.8-7.7) Lymphocytes # (Auto) 0.4 x10^3/uL (1.0-4.8) 0.1 x10^3/uL (1.0-4.8) Monocytes # (Auto) 0.4 x10^3/uL (0.0-1.1) 0.4 x10^3/uL (0.0-1.1) Eosinophils # (Auto) 1.9 x10^3/uL (0.0-0.7) 0.1 x10^3/uL (0.0-0.7) Basophils # (Auto) 0.0 x10^3/uL (0.0-0.2) 0.0 x10^3/uL (0.0-0.2) Segmented Neutrophils % 83 % (35-66) Band Neutrophils % 10 % (0-9) Lymphocytes % 3 % (24-48) Monocytes % 4 % (0-10) Toxic Granulation Mod Toxic Vacuolation Mod Dohle Bodies Few Platelet Estimate Decreased (ADEQUATE) Hypochromasia Mod Microcytosis Macrocytosis Slight Sodium Level 119 mmol/L (136-145) 118 mmol/L (136-145) 120 mmol/L (136-145) Potassium Level 4.8 mmol/L (3.5-5.1) 4.2 mmol/L (3.5-5.1) 3.1 mmol/L (3.5-5.1) Chloride Level 87 mmol/L (98-107) 85 mmol/L (98-107) 82 mmol/L (98-107) Carbon Dioxide Level 17 mmol/L (21-32) 21 mmol/L (21-32) 29 mmol/L (21-32) Anion Gap 15 (6-14) 12 (6-14) 9 (6-14) Blood Urea Nitrogen 55 mg/dL (7-20) 58 mg/dL (7-20) 60 mg/dL (7-20) Creatinine 3.8 mg/dL (0.6-1.0) 3.9 mg/dL (0.6-1.0) 4.1 mg/dL (0.6-1.0) Estimated GFR (Cockcroft-Gault) 11.7 11.4 10.7 BUN/Creatinine Ratio 14 (6-20) 15 (6-20) Glucose Level 99 mg/dL (70-99) 109 mg/dL (70-99) 130 mg/dL (70-99) Lactic Acid Level 1.6 mmol/L (0.4-2.0) Calcium Level 7.0 mg/dL (8.5-10.1) 6.8 mg/dL (8.5-10.1) 6.4 mg/dL (8.5-10.1) Total Bilirubin 0.6 mg/dL (0.2-1.0) 0.6 mg/dL (0.2-1.0) Aspartate Amino Transf (AST/SGOT) 79 U/L (15-37) 43 U/L (15-37) Alanine Aminotransferase (ALT/SGPT) 131 U/L (14-59) 105 U/L (14-59) Alkaline Phosphatase 163 U/L (46-116) 118 U/L (46-116) Total Protein 5.5 g/dL (6.4-8.2) 4.9 g/dL (6.4-8.2) Albumin 2.0 g/dL (3.4-5.0) 1.6 g/dL (3.4-5.0) Albumin/Globulin Ratio 0.6 (1.0-1.7) 0.5 (1.0-1.7) Prothrombin Time 17.4 SEC (11.7-14.0) Prothromb Time International Ratio 1.5 (0.8-1.1) Activated Partial Thromboplast Time 35 SEC (24-38) Fibrinogen 654 mg/dL (200-440) D-Dimer (Lizet) 7.53 ug/mlFEU (0.00-0.50) Lactate Dehydrogenase 434 U/L (81-234) Phosphorus Level 2.9 mg/dL (2.6-4.7) Magnesium Level 1.8 mg/dL (1.8-2.4) Creatine Kinase 113 U/L (26-192) Laboratory Tests Test 07/16/19 05:00 White Blood Count 13.8 x10^3/uL (4.0-11.0) Red Blood Count 2.34 x10^6/uL (3.50-5.40) Hemoglobin 8.1 g/dL (12.0-15.5) Hematocrit 23.7 % (36.0-47.0) Mean Corpuscular Volume 101 fL (79-100) Mean Corpuscular Hemoglobin 35 pg (25-35) Mean Corpuscular Hemoglobin Concent 34 g/dL (31-37) Red Cell Distribution Width 13.4 % (11.5-14.5) Platelet Count 75 x10^3/uL (140-400) Sodium Level 120 mmol/L (136-145) Potassium Level 3.1 mmol/L (3.5-5.1) Chloride Level 82 mmol/L (98-107) Carbon Dioxide Level 29 mmol/L (21-32) Anion Gap 9 (6-14) Blood Urea Nitrogen 60 mg/dL (7-20) Creatinine 4.1 mg/dL (0.6-1.0) Estimated GFR (Cockcroft-Gault) 10.7 BUN/Creatinine Ratio 15 (6-20) Glucose Level 130 mg/dL (70-99) Calcium Level 6.4 mg/dL (8.5-10.1) Phosphorus Level 2.9 mg/dL (2.6-4.7) Magnesium Level 1.8 mg/dL (1.8-2.4) Total Bilirubin 0.6 mg/dL (0.2-1.0) Aspartate Amino Transf (AST/SGOT) 43 U/L (15-37) Alanine Aminotransferase (ALT/SGPT) 105 U/L (14-59) Alkaline Phosphatase 118 U/L (46-116) Creatine Kinase 113 U/L (26-192) Total Protein 4.9 g/dL (6.4-8.2) Albumin 1.6 g/dL (3.4-5.0) Albumin/Globulin Ratio 0.5 (1.0-1.7) LORRIE AUGUSTINE MD Jul 16, 2019 10:19
--- NOTE | 2019-07-16 10:21 | PN ---
DATE: 07/16/2019 SUBJECTIVE: The patient is resting, slightly propped up, sleeping comfortably, in no apparent distress. She is arousable and she seemed somewhat confused and disoriented, but denied any chest pain or shortness of breath. Clinically, seemed to be markedly fluid overloaded with marked periorbital edema. She continued to be extremely oliguric and her lab work continued to show refractory hyponatremia. She has also hypokalemia. Her BUN and creatinine has risen further to 60 and 4.1. Her liver enzymes are still high, but trending down. Her platelets also continued to trend downward. She is now on Zosyn and daptomycin. PHYSICAL EXAMINATION: GENERAL: When I examined her this morning, she was pale, but no jaundiced, cyanosis or thyromegaly, but the patient with generalized anasarca. VITAL SIGNS: Her heart rate was 96, blood pressure 134/59, temperature was 98.7, respiratory rate 23, and oxygen saturation was 96% on 2 liters of oxygen. HEAD, EYES, EARS, NOSE AND THROAT: Showed normocephalic, atraumatic. NECK: Supple. CARDIAC: Normal first and second heart sounds with no gallop, rub or murmur. CHEST: Clear to auscultation. No crepitation or rhonchi. ABDOMEN: Distended, soft, nontender. NEUROLOGIC: She is confused, disoriented, but without any obvious lateralizing sign. Her intake over the last 24 hours was 1468, output was 165. Her chemistry this morning showed a white cell count of 13,800, hemoglobin 8.1, hematocrit 24, MCV 101 and platelet count 75,000. Her chemistry showed a serum sodium 120, potassium 3.1, chloride 82, bicarbonate 29, anion gap of 9, BUN 60, creatinine 4.1, estimated GFR was 10.7. Her blood glucose was 130, calcium was 6.4. Phosphorus 2.9, magnesium was 1.8. Total bilirubin is normal. AST, ALT, alkaline phosphatase slightly elevated, trending down. Her total protein was 4.9, albumin was 1.6. LDH was 434. ASSESSMENT: 1. Acute kidney injury, multifactorial, probably due to dehydration as she has recurrent bouts of nausea, vomiting and diarrhea. She was also on meloxicam as well as losartan that were put on hold. 2. Chronic hyponatremia for which she was on salt tablets; however, her primary care physician, Dr. Liborio Barahona stated that her serum sodium was 136 mEq per liter and creatinine was 0.9 in October 2018. 3. Her TSH was normal and morning cortisol was high at 57 excluding the possibility of hypothyroidism, Sharp's disease as cause of chronic hyponatremia. Other medical problems include hypertension. 4. Leukopenia and macrocytosis per history. She was followed at [facility] for that. The patient's kidney function is planned and her kidney function is definitely worsening. She is now more fluid overloaded and I think the dialysis probably indicated given that she has continued to be extremely oliguric. She is followed by Dr. Schmitt, the director enterprise systems. GABRIEL REYES MD DR: ENRIQUE/jennyfer JOB#: [id number] / [id number]
[2019-07-16 11:15] LABS: % SEGS 83 % (35-66)
--- NOTE | 2019-07-16 11:22 | PDOC ---
Renal-Progress Notes Subjective Notes Notes SOB NOW History of Present Illness Hx of present illness NOT ANY BETTER Vitals Vitals Vital Signs Date Time Temp Pulse Resp B/P (MAP) Pulse Ox O2 Delivery O2 Flow Rate FiO2 07/16/19 09:12 96 134/59 07/16/19 08:00 98.7 23 96 Nasal Cannula 2.0 98.7 Weight Weight [ ] I.O. Intake and Output Intake and Output 07/16/19 07:00 Intake Total 4323 ml Output Total 330 ml Balance 3993 ml Intake Oral 500 ml IV Total 3823 ml Output Urine Total 330 ml Labs Labs Laboratory Tests Test 07/16/19 05:00 White Blood Count 13.8 x10^3/uL (4.0-11.0) Red Blood Count 2.34 x10^6/uL (3.50-5.70) Hemoglobin 8.1 g/dL (12.0-15.5) Hematocrit 23.7 % (36.0-47.0) Mean Corpuscular Volume 101 fL (79-100) Mean Corpuscular Hemoglobin 35 pg (25-35) Mean Corpuscular Hemoglobin Concent 34 g/dL (31-37) Red Cell Distribution Width 13.4 % (11.5-14.5) Platelet Count 75 x10^3/uL (140-400) Absolute Reticulocyte Count 0.006 x10^6/uL (0.020-0.120) Percent Reticulocyte Count 0.3 % (0.5-2.3) Immature Reticulocyte Fraction 0.23 (0.20-0.60) Sodium Level 120 mmol/L (136-145) Potassium Level 3.1 mmol/L (3.5-5.1) Chloride Level 82 mmol/L (98-107) Carbon Dioxide Level 29 mmol/L (21-32) Anion Gap 9 (6-14) Blood Urea Nitrogen 60 mg/dL (7-20) Creatinine 4.1 mg/dL (0.6-1.0) Estimated GFR (Cockcroft-Gault) 10.7 BUN/Creatinine Ratio 15 (6-20) Glucose Level 130 mg/dL (70-99) Calcium Level 6.4 mg/dL (8.5-10.1) Phosphorus Level 2.9 mg/dL (2.6-4.7) Magnesium Level 1.8 mg/dL (1.8-2.4) Total Bilirubin 0.6 mg/dL (0.2-1.0) Aspartate Amino Transf (AST/SGOT) 43 U/L (15-37) Alanine Aminotransferase (ALT/SGPT) 105 U/L (14-59) Alkaline Phosphatase 118 U/L (46-116) Creatine Kinase 113 U/L (26-192) Total Protein 4.9 g/dL (6.4-8.2) Albumin 1.6 g/dL (3.4-5.0) Albumin/Globulin Ratio 0.5 (1.0-1.7) Review of Systems Constitutional: yes: weakness, alert, oriented Ears/Nose/Throat: Yes: no symptom reported Eyes: Yes: no symptom reported Pulmonary: Yes dyspnea Cardiovascular: Yes no symptom reported Gastrointestional: Yes: nausea, vomiting, diarrhea Genitourinary: Yes: no symptom reported Musculoskeletal: Yes: shoulder pain Skin: Yes no symptom reported Psychiatric/Neurological: Yes: no symptom reported Endocrine: Yes: no symptom reported Hematologic/Lymphatic: Yes: no symptom reported Physical Exam General Appearance: no apparent distress Skin: warm Respiratory: decreased breath sounds Heart: S1S2, RRR Abdomen: soft, bowel sounds present Genitourinary: bladder flat Extremities: pulses present, no edema, atrophy Neurology: alert, oriented, follow commands, Ext weakness Musculoskeletal: Osteoarthritis Assessment Assessment IMP [id number] NOW HYPOKALEMIA SEPSIS-CRITICALLY ILL HYPOTENSION SEVERE HYPONATREMIA-NA OF 120 CHRONIC HYPONATREMIA-WAS BEING TX WITH NA TABLETS-LAST NA OF 136 OP MET ACIDOSIS LEUCOCYTOSIS PROB GASTROENTERITIS PLAN HOLD MOBIC HOLD LOSARTAN D/C HCO3 GTT MORE 3% SALINE IV LASIX TODAY REPLACE K WILL FOLLOW VERY ILL UPDATED SON AND DAUGHTER D/W BAKARI WAYNE MD Jul 16, 2019 11:22
[2019-07-16] MEDS ORDERED: FUROSEMIDE 100 MG/10 ML VIAL. IVP ONE (11:30)
[2019-07-16] MEDS: POTASSIUM CHLORIDE 10MEQ 100 ML IV SCH ×3 (11:54→14:38)
--- NOTE | 2019-07-16 13:13 | RAD ---
Examination: CT ABDOMEN PELVIS WO CONTRAST History: Obstructive uropathy Comparison/Correlation: None Findings: Axial images of the abdomen and pelvis were obtained without contrast. Sagittal and coronal reformatted images were provided. Small to moderate-sized bilateral pleural effusions are present. Adjacent bilateral lower lobe atelectatic consolidation in the right noted. Liver, gallbladder fossa, pancreas, and adrenal glands are unremarkable. No definite hydronephrosis. Slight right caliectasis noted. No radiopaque collecting system calculi. No extraluminal gas. Swollen fluid in the right iliac fossa is present. Presacral fluid is present. Kuo catheter is present in the urinary bladder. No extraluminal gas. Mild anasarca. Fluid collection is suggested within the anterior aspect of the lower right pelvis best seen on axial image 179. It measures up to 5.1 cm x 3.7 cm x 3.4 cm transverse. Mild diverticulosis of the colon is present. Retained barium within a few diverticuli suggested. Fluid is noted in the posterior dependent presacral region on the left best seen on axial image 35 of series 2. This measures up to 4.8 cm by report this Kuo catheter is present in the decompressed urinary bladder. Gaseous distention of the colon is evident. There is especially noted in the region of the cecum. No inflammatory changes about cecum noted. Appendix is not delineated. Limited mesenteric fat is noted at the right lower pelvis along with a fluid collection. Dextroconvex scoliosis of the thoracolumbar spine noted. Significant disc space narrowing at multiple levels of the lumbar spine noted. Deformity of the right symphysis is noted which may relate to prior trauma. Significant right hip joint space narrowing with subchondral sclerosis and spurring noted. Spurring of the left hip joint also seen. Impression: Slight right pyelocaliectasis. No radiopaque collecting system calculus. No obstruction identified to involve the ureter. Bilateral pleural effusions and adjacent atelectasis. Mild anasarca. Gaseous distention of the ascending colon. No significant distention of bowel otherwise definite for obstruction. Findings may represent ileus Minimal ascites. Loculated fluid collection is present at the anterior aspect of the lower pelvis and additional collection is noted in the left lateral presacral region. No suspicious surrounding inflammatory findings noted. PQRS Compliance Statement: One or more of the following individualized dose reduction techniques were utilized for this examination: 1. Automated exposure control 2. Adjustment of the mA and/or kV according to patient size 3. Use of iterative reconstruction technique Electronically signed by: Fernando Allan MD (07/16/2019 1:09 PM) [facility]
[2019-07-16] MEDS ORDERED: LIDOCAINE WITH 8.4% SOD BICARB 3 ML DISP.SYRIN. ONE (13:18)
[2019-07-16] MEDS ORDERED: HEPARIN PF 500 UNIT/5 ML DISP.SYRIN. ONE (13:20)
[2019-07-16] MEDS ORDERED: HEPARIN for IV BOLUS 10,000 UNIT/10 ML VIAL. ONE (13:21)
[2019-07-16] MEDS ORDERED: LIDOCAINE WITH 8.4% SOD BICARB 3 ML DISP.SYRIN. INJ ONE (13:45)
--- NOTE | 2019-07-16 14:29 | RAD ---
PORTABLE CHEST 1V 07/16/2019 1:47 PM INDICATION: Central line placement COMPARISON: None available TECHNIQUE: Portable frontal view of the chest is provided. FINDINGS: The cardiomediastinal silhouette is borderline enlarged. Small bilateral pleural effusions with adjacent compressive atelectasis versus infiltrate. Mild bilateral hilar prominence is noted which may be vascular or associated with lymphadenopathy. Right IJ double-lumen catheter is identified with the distal tip regional to the superior right atrium. There is ectasia of the thoracic aorta. No pneumothorax. Mild pulmonary vascular congestion. IMPRESSION: 1. Right IJ double-lumen catheter is identified with the distal tip projecting over the right atrium. 2. No pneumothorax. 3. Mild pulmonary vascular congestion with small bilateral pleural effusions with adjacent compressive atelectasis versus infiltrates. Findings may be seen with congestive heart failure. Bilateral hilar prominence with ectasia of the thoracic aorta. Electronically signed by: Florencia Monroe MD (07/16/2019 2:26 PM) [id number]
[2019-07-16] MEDS ORDERED: SODIUM CHLORIDE 3 % 250 ML IV ONE (14:30)
--- NOTE | 2019-07-16 15:28 | RAD ---
Procedure: Ultrasound-guided placement of right internal jugular central venous obtpgang86/14/2019 1:24 PM Clinical Indication: Dialysis catheter placement Discussion: The risks and benefits of the procedure were discussed the patient and/or their new accounts representative. Informed consent was obtained. A timeout procedure was performed. All elements of maximal sterile barrier technique including the use of a cap, mask, sterile gown, sterile gloves, large sterile sheet, appropriate hand hygiene, and 2% chlorhexidine for cutaneous antisepsis (or acceptable alternative antiseptic per current guidelines) were followed for this procedure. The patient was prepped and draped in the usual sterile fashion. Ultrasound interrogation of the right neck revealed patency and compressibility of the right internal jugular vein. A 21-gauge micropuncture was then used to gain access to this vein under ultrasound guidance. A hard copy ultrasound image was recorded. A guidewire was advanced centrally. 5 [place] sheath was placed. Over a wire following dilatation, a triple-lumen temporary dialysis catheter was advanced centrally. Catheter was found to flush and aspirate normally. Follow-up chest radiograph demonstrates tip at the cavoatrial junction. Catheter secured in place and a sterile dressing was applied. No immediate complications were identified. Impression: Ultrasound-guided placement of right internal jugular temporary dialysis catheter
[2019-07-16] MEDS: HEPARIN PF 500 UNIT/5 ML DISP.SYRIN. IVP SCH (21:00)
[2019-07-16] MEDS: PATCH REMOVAL. MC SCH (21:00)
[2019-07-16] MEDS: LACTOBACILLUS RHAMNOSUS GG 1 CAPSULE. PO SCH (21:18)
[2019-07-16] MEDS: FAMOTIDINE 20 MG TABLET. PO SCH (21:18)
[2019-07-17] VITALS (24 sets, daily range): BP systolic 96–139; BP diastolic 46–76
[2019-07-17] MEDS: ACETAMINOPHEN 325 MG TABLET. PO PRN ×5 (03:08→21:38)
[2019-07-17 04:23] LABS: HEMATOCRIT 23.8 % (36.0-47.0); HEMOGLOBIN 8.4 g/dL (12.0-15.5); RED BLOOD COUNT 2.39 x10^6/uL (3.50-5.40); WHITE BLOOD COUNT 15.1 x10^3/uL (4.0-11.0)
[2019-07-17 04:32] LABS: CALCIUM 6.9 mg/dL (8.5-10.1); CREATININE 4.1 mg/dL (0.6-1.0); GFR 10.7; POTASSIUM 3.9 mmol/L (3.5-5.1)
[2019-07-17 04:36] LABS: PHOSPHORUS 4.4 mg/dL (2.6-4.7)
[2019-07-17] MEDS: PIPERACILLIN/TAZOBACTAM 2.25 GM in IV NORMAL SALINE 50ML 50 ML IV SCH (05:59)
[2019-07-17] MEDS: LEVOTHYROXINE 100 MCG TABLET PO SCH (05:59)
--- NOTE | 2019-07-17 06:29 | NUR ---
Received care of patient after report at 1900. Slept well most of night, though awakened frequently. When she did wake, she moaned continually. When asked if she was in pain, pt denied. Icy Hot patch changed at midnight per family request, but patient requested it to be removed after 30 minutes stating "sometimes it makes the pain worse". Na+ better this am. F/C with good urine output all shift.
--- NOTE | 2019-07-17 07:45 | PDOC ---
Infectious Disease Note Subjective: Subjective Pt is having sob ,wheezing, dry mouth no f/c/n/v/d/abdo pain d/w rn on bicarb drip dec uo creat inc Vital Signs: Vital Signs Vital Signs Date Time Temp Pulse Resp B/P (MAP) Pulse Ox O2 Delivery O2 Flow Rate FiO2 07/17/19 07:00 86 17 111/53 (72) 92 Nasal Cannula 2.0 07/17/19 04:00 98.0 98.0 Physical Exam: PHYSICAL EXAM GENERAL: Alert, awake, pleasant female, lying in bed ,tired appearing HEENT: Normocephalic, atraumatic. Anicteric. Dry oral mucosa, no thrush. No oropharyngeal exudate. NECK: Supple.Central line looks ok LUNGS: dec bs at bases + wheezing. HEART: S1, S2. No murmurs. ABDOMEN: Soft, nontender, nondistended, no rebound or guarding. EXTREMITIES: No edema, no cyanosis, no clubbing. NEUROLOGIC: Moves all 4 extremities. PSYCHIATRIC: Cooperative, appropriate mood and affect. Medications: Inpatient Meds: Current Medications Medications (Trade) Dose Ordered Sig/Saurabh Start Time Stop Time Status Last Admin Dose Admin Acetaminophen (Tylenol) 650 mg PRN Q4HRS PRN 07/15/19 10:45 07/17/19 03:08 650 MG Albuterol/ Ipratropium (Duoneb) 3 ml 1X ONCE 07/16/19 01:00 07/16/19 01:01 DC 07/16/19 00:59 3 ML Alprazolam (Xanax) 0.5 mg PRN Q6HRS PRN 07/15/19 21:45 07/16/19 17:37 0.5 MG Amlodipine Besylate (Norvasc) 10 mg DAILY 07/15/19 09:00 07/16/19 09:12 10 MG Daptomycin 390 mg/ Sodium Chloride 50 ml @ 100 mls/hr Q48H 07/15/19 14:00 07/16/19 08:27 DC 07/15/19 14:56 100 MLS/HR Famotidine (Pepcid) 20 mg QHS 07/15/19 21:00 07/16/19 21:18 20 MG Furosemide (Lasix) 60 mg 1X ONCE 07/16/19 11:30 07/16/19 11:31 DC 07/16/19 11:40 60 MG Heparin Sodium (Porcine) (Hep Lock Adult) 2,800 unit Q12HR 07/16/19 21:00 Heparin Sodium (Porcine) (Heparin Sodium) 10,000 unit STK-MED ONCE 07/16/19 13:21 07/16/19 13:22 DC Heparin Sodium/ Sodium Chloride (HEPARIN for ARTERIAL LINE FLUSH) 1,000 unit 1X ONCE 07/16/19 13:45 07/16/19 13:46 DC Lactobacillus Rhamnosus (Culturelle) 1 cap BID 07/16/19 21:00 07/16/19 21:18 1 CAP Levothyroxine Sodium (Synthroid) 100 mcg DAILY06 07/15/19 06:00 07/17/19 05:59 100 MCG Lidocaine (Lidoderm) 1 patch DAILY 07/16/19 09:00 07/16/19 09:13 1 PATCH Lidocaine HCl (Buffered Lidocaine 1%) 3 ml 1X ONCE 07/16/19 13:45 07/16/19 13:46 DC 07/16/19 13:43 4 ML Linezolid/Dextrose 300 ml @ 300 mls/hr Q12HR 07/14/19 21:00 07/15/19 13:14 DC 07/15/19 09:23 300 MLS/HR Miscellaneous (Lidoderm Patch Removal) 1 ea QHS 07/16/19 21:00 07/16/19 21:00 1 EA Ondansetron HCl (Zofran) 4 mg PRN Q4HRS PRN 07/14/19 22:30 07/15/19 15:00 4 MG Piperacillin Sod/ Tazobactam Sod (Zosyn Per Pharmacy) 1 each PRN DAILY PRN 07/15/19 00:00 UNV Piperacillin Sod/ Tazobactam Sod 2.25 gm/Sodium Chloride 50 ml @ 100 mls/hr Q8HRS 07/14/19 22:00 07/17/19 05:59 100 MLS/HR Potassium Chloride/Water 100 ml @ 100 mls/hr Q1H 07/16/19 11:30 07/16/19 14:29 DC 07/16/19 14:38 100 MLS/HR Saliva Substitute (Biotene Moisturizing Mouth) 2 spray PRN Q15MIN PRN 07/15/19 10:45 Sodium Bicarbonate 150 meq/Dextrose 1,150 ml @ 150 mls/hr Q7H40M 07/14/19 21:00 07/16/19 11:17 DC 07/16/19 00:46 150 MLS/HR Sodium Chloride 250 ml @ 41.6 mls/hr 1X ONCE 07/16/19 14:30 07/16/19 20:30 DC 07/16/19 14:38 41.6 MLS/HR Labs: Lab Laboratory Tests Test 07/17/19 04:00 White Blood Count 15.1 x10^3/uL (4.0-11.0) Red Blood Count 2.39 x10^6/uL (3.50-5.40) Hemoglobin 8.4 g/dL (12.0-15.5) Hematocrit 23.8 % (36.0-47.0) Mean Corpuscular Volume 100 fL (79-100) Mean Corpuscular Hemoglobin 35 pg (25-35) Mean Corpuscular Hemoglobin Concent 35 g/dL (31-37) Red Cell Distribution Width 13.0 % (11.5-14.5) Platelet Count 73 x10^3/uL (140-400) Sodium Level 125 mmol/L (136-145) Potassium Level 3.9 mmol/L (3.5-5.1) Chloride Level 88 mmol/L (98-107) Carbon Dioxide Level 29 mmol/L (21-32) Anion Gap 8 (6-14) Blood Urea Nitrogen 68 mg/dL (7-20) Creatinine 4.1 mg/dL (0.6-1.0) Estimated GFR (Cockcroft-Gault) 10.7 Glucose Level 97 mg/dL (70-99) Calcium Level 6.9 mg/dL (8.5-10.1) Phosphorus Level 4.4 mg/dL (2.6-4.7) Magnesium Level 2.0 mg/dL (1.8-2.4) Micro [facility] BC +GNR UC CT A/P W/O Impression: Slight right pyelocaliectasis. No radiopaque collecting system calculus. No obstruction identified to involve the ureter. Bilateral pleural effusions and adjacent atelectasis. Mild anasarca. Gaseous distention of the ascending colon. No significant distention of bowel otherwise definite for obstruction. Findings may represent ileus Minimal ascites. Loculated fluid collection is present at the anterior aspect of the lower pelvis and additional collection is noted in the left lateral presacral region. No suspicious surrounding inflammatory findings noted. Objective: Assessment: 1. Sepsis from Gram neg bacteremia at [facility] ,ID pending 2. Leukocytosis with bandemia. 3. Gram negative bacteremia 2/4 bottles at [facility] 4. Urinary tract infection. UC E coli 5. Acute kidney injury/acute tubular necrosis. 6. Nausea, vomiting, and diarrhea. 7. Severe hyponatremia with underlying history of chronic hyponatremia. Improving 8. Abnormal liver function tests. 9. Hypocalcemia. 10. Anemia. 11. Thrombocytopenia. 12. Metabolic acidosis. 13. Right pyelocaliectasis. 14.Ascites Plan: Plan of Care 1. DC Zosyn 2. Start Merrem ,renal dosing. 3. F/U GNR in BC at [place] and E coli in UC 4. Follow up labs and cultures from [facility]. 5. Continue supportive care. KHADRA SALCEDO MD Jul 17, 2019 07:45
[2019-07-17] MEDS: MEROPENEM 500 MG in IV NORMAL SALINE 50ML 50 ML IV SCH (08:47)
[2019-07-17] MEDS: amLODIPine BESYLATE 10 MG TABLET PO SCH (09:00)
[2019-07-17] MEDS: LIDOCAINE (700MG/PATCH) PATCH. TD SCH (09:00)
[2019-07-17] MEDS: HEPARIN PF 500 UNIT/5 ML DISP.SYRIN. IVP SCH (09:00)
--- NOTE | 2019-07-17 09:39 | PDOC ---
SUBJECTIVE Subjective S: doing much better O: Physical exam: Max temp 100.7 Gen.: elderly female, resting in bed, in good spirits Lungs: Breathing comfortably Psychiatric: Pleasant mood and affect Labs: White count 15, hemoglobin 8.4, platelets 73 Assessment and Plan: A/P: 69 yo female w/ macrocytosis and low blood counts, worsened here being treated for UTI with gram-negative [place] bacteremia from [facility] UTI/GNR bacteremia: abx, per ID pancytopenia: s/p BMBx before about 5 yrs ago, could repeat prn though suspect improvement w/ tx of infection, will follow for now, no e/o HUS on smear review, retic low (caution heparin use with thrombocytopenia) hypothyroid: on replacement n/v: zofran prn LEONIDAS/hypoNa: per nephro Thank you kindly and please do not hesitate to call with questions. OBJECTIVE Vital Signs Vital Signs Date Time Temp Pulse Resp B/P (MAP) Pulse Ox O2 Delivery O2 Flow Rate FiO2 07/17/19 09:00 92 25 131/65 (87) 94 Nasal Cannula 2.0 07/17/19 08:00 Nasal Cannula 2.0 07/17/19 08:00 98.4 92 22 117/65 (82) 94 Nasal Cannula 2.0 98.4 07/17/19 07:00 86 17 111/53 (72) 92 Nasal Cannula 2.0 07/17/19 06:00 86 18 110/56 (74) 92 Nasal Cannula 2.0 07/17/19 05:00 82 18 118/64 (82) 96 Nasal Cannula 2.0 07/17/19 04:00 98.0 88 17 127/54 (78) 95 Nasal Cannula 2.0 98.0 07/17/19 04:00 Nasal Cannula 2.0 07/17/19 03:00 93 21 133/57 (82) 97 Nasal Cannula 2.0 07/17/19 02:00 87 22 126/64 (84) 98 Nasal Cannula 2.0 07/17/19 01:00 87 18 121/58 (79) 94 Nasal Cannula 2.0 07/17/19 00:00 Nasal Cannula 2.0 07/17/19 00:00 100.7 92 22 123/52 (75) 97 Nasal Cannula 2.0 100.7 07/16/19 23:00 87 21 107/60 (76) 94 Nasal Cannula 2.0 07/16/19 22:00 85 24 92/49 (63) 93 Nasal Cannula 2.0 07/16/19 21:00 90 20 104/49 (67) 94 Nasal Cannula 2.0 07/16/19 20:00 Nasal Cannula 2.0 07/16/19 20:00 100.7 94 20 96/54 (68) 94 Nasal Cannula 2.0 100.7 07/16/19 19:00 92 18 111/56 (74) 93 Nasal Cannula 2.0 07/16/19 18:00 94 19 117/62 (80) 94 Nasal Cannula 2.0 07/16/19 17:00 100 24 129/44 (72) 94 Nasal Cannula 2.0 07/16/19 16:00 99.0 91 24 116/61 (79) 98 Nasal Cannula 2.0 99.0 07/16/19 16:00 Nasal Cannula 2.0 07/16/19 15:00 86 20 119/65 (83) 98 Nasal Cannula 2.0 07/16/19 14:00 85 20 118/65 (82) 97 Nasal Cannula 2.0 07/16/19 13:00 84 15 105/58 (74) 97 Nasal Cannula 2.0 07/16/19 12:00 98.4 84 21 91/58 (69) 92 Nasal Cannula 2.0 98.4 07/16/19 12:00 Nasal Cannula 2.0 07/16/19 11:00 94 16 131/68 (89) 90 Nasal Cannula 2.0 07/16/19 10:00 94 22 144/66 (92) 90 Nasal Cannula 2.0 I & O Intake and Output 07/17/19 07:00 Intake Total 1255 ml Output Total 1720 ml Balance -465 ml Intake Oral 180 ml IV Total 1075 ml Output Urine Total 1720 ml COMMENT Lab Laboratory Tests Test 07/17/19 04:00 White Blood Count 15.1 x10^3/uL (4.0-11.0) Red Blood Count 2.39 x10^6/uL (3.50-5.40) Hemoglobin 8.4 g/dL (12.0-15.5) Hematocrit 23.8 % (36.0-47.0) Mean Corpuscular Volume 100 fL (79-100) Mean Corpuscular Hemoglobin 35 pg (25-35) Mean Corpuscular Hemoglobin Concent 35 g/dL (31-37) Red Cell Distribution Width 13.0 % (11.5-14.5) Platelet Count 73 x10^3/uL (140-400) Sodium Level 125 mmol/L (136-145) Potassium Level 3.9 mmol/L (3.5-5.1) Chloride Level 88 mmol/L (98-107) Carbon Dioxide Level 29 mmol/L (21-32) Anion Gap 8 (6-14) Blood Urea Nitrogen 68 mg/dL (7-20) Creatinine 4.1 mg/dL (0.6-1.0) Estimated GFR (Cockcroft-Gault) 10.7 Glucose Level 97 mg/dL (70-99) Calcium Level 6.9 mg/dL (8.5-10.1) Phosphorus Level 4.4 mg/dL (2.6-4.7) Magnesium Level 2.0 mg/dL (1.8-2.4) LORRIE AUGUSTINE MD Jul 17, 2019 09:39
--- NOTE | 2019-07-17 11:07 | PDOC ---
Renal-Progress Notes Subjective Notes Notes SITTING UP, FEELING BETTER History of Present Illness Hx of present illness STABLE Vitals Vitals Vital Signs Date Time Temp Pulse Resp B/P (MAP) Pulse Ox O2 Delivery O2 Flow Rate FiO2 07/17/19 10:00 102 24 133/60 (84) 95 Nasal Cannula 2.0 07/17/19 08:00 98.4 98.4 Weight Weight [ ] I.O. Intake and Output Intake and Output 07/17/19 07:00 Intake Total 1255 ml Output Total 1720 ml Balance -465 ml Intake Oral 180 ml IV Total 1075 ml Output Urine Total 1720 ml Labs Labs Laboratory Tests Test 07/17/19 04:00 White Blood Count 15.1 x10^3/uL (4.0-11.0) Red Blood Count 2.39 x10^6/uL (3.50-5.40) Hemoglobin 8.4 g/dL (12.0-15.5) Hematocrit 23.8 % (36.0-47.0) Mean Corpuscular Volume 100 fL (79-100) Mean Corpuscular Hemoglobin 35 pg (25-35) Mean Corpuscular Hemoglobin Concent 35 g/dL (31-37) Red Cell Distribution Width 13.0 % (11.5-14.5) Platelet Count 73 x10^3/uL (140-400) Sodium Level 125 mmol/L (136-145) Potassium Level 3.9 mmol/L (3.5-5.1) Chloride Level 88 mmol/L (98-107) Carbon Dioxide Level 29 mmol/L (21-32) Anion Gap 8 (6-14) Blood Urea Nitrogen 68 mg/dL (7-20) Creatinine 4.1 mg/dL (0.6-1.0) Estimated GFR (Cockcroft-Gault) 10.7 Glucose Level 97 mg/dL (70-99) Calcium Level 6.9 mg/dL (8.5-10.1) Phosphorus Level 4.4 mg/dL (2.6-4.7) Magnesium Level 2.0 mg/dL (1.8-2.4) Review of Systems Constitutional: yes: weakness, alert, oriented Ears/Nose/Throat: Yes: no symptom reported Eyes: Yes: no symptom reported Pulmonary: Yes dyspnea Cardiovascular: Yes no symptom reported Gastrointestional: Yes: nausea, vomiting, diarrhea Genitourinary: Yes: no symptom reported Musculoskeletal: Yes: shoulder pain Skin: Yes no symptom reported Psychiatric/Neurological: Yes: no symptom reported Endocrine: Yes: no symptom reported Hematologic/Lymphatic: Yes: no symptom reported Physical Exam General Appearance: no apparent distress Skin: warm Respiratory: decreased breath sounds Heart: S1S2, RRR Abdomen: soft, bowel sounds present Genitourinary: bladder flat Extremities: pulses present, no edema, atrophy Neurology: alert, oriented, follow commands, Ext weakness Musculoskeletal: Osteoarthritis Assessment Assessment IMP [id number] CR OF 4.1 WITH IMPROVING UO HYPOKALEMIA-BETTER SEPSIS-CRITICALLY ILL HYPOTENSION-STABLE SEVERE HYPONATREMIA-NA OF 125-BETTER CHRONIC HYPONATREMIA-WAS BEING TX WITH NA TABLETS-LAST NA OF 136 OP MET ACIDOSIS LEUCOCYTOSIS PROB GASTROENTERITIS PLAN HOLD MOBIC HOLD LOSARTAN OFF HCO3 GTT MORE 3% SALINE NEEDED REPLACE K NEEDED WILL FOLLOW VERY ILL UPDATED SON AND DAUGHTER D/W DR REYES PT HAS A TRIALYSATE CATHETER IN PLACE FOR IV AND POTENTIAL NEED FOR HD NO NEED FOR HD AT THIS TIME-UO IMPROVED AND LABS STABLE BAKARI NORRIS MD Jul 17, 2019 11:07
--- NOTE | 2019-07-17 11:25 | PN ---
DATE: SUBJECTIVE: The patient is resting flat, comfortably in bed, no apparent distress, awake, alert. Denied any chest pain or shortness of breath. Denied any nausea, vomiting or diarrhea. Continued to have dry mouth. PHYSICAL EXAMINATION: GENERAL: When I examined her, she was pale. No jaundice, cyanosis or thyromegaly. No jugular venous distension. No lower limb edema. VITAL SIGNS: Her heart rate was 86, blood pressure was 111/53, temperature was 98, respiratory rate was 17 and oxygen saturation was 92% on 2 liters of oxygen. HEAD, EYES, EARS, NOSE AND THROAT: Showed normocephalic, atraumatic. NECK: Supple. HEART: Showed normal first and second heart sounds. No gallop or murmur. CHEST: Clear to auscultation. No crepitation or rhonchi. ABDOMEN: Distended, soft, nontender. No guarding or rigidity. No organomegaly. All hernial orifice intact. Bowel sounds normal. NEUROLOGIC: She was awake, alert, responding appropriately. All cranial nerves intact. She moves extremities without difficulty. Her intake was 4300, output was 320. LABORATORY DATA: Her lab work this morning showed a white cell count of 15,000, hemoglobin 8.4, hematocrit 24, MCV 100, and platelet count of 73,000. Her serum sodium this morning was 125, potassium 3.9, chloride 88, bicarbonate 29, anion gap of 8, BUN 68, creatinine was 4.1, estimated GFR was 10 mL per minute. Her glucose was 97, calcium was 6.9, phosphorus 4.4, magnesium was 2. ASSESSMENT: 1. Acute kidney injury, multifactorial, probably due to hydration as she has recurrent bouts of nausea, vomiting and diarrhea. She was also on meloxicam as well as losartan that we will put on hold. 2. Chronic hyponatremia, which she was on salt tablets; however, her primary care physician, Dr. Liborio Barahona stated that her serum sodium was 136 mEq per liter and creatinine 0.9 in 10/2018. 3. Her TSH was normal and morning cortisol was 57 excluding the possibility of hypothyroidism and Paul's disease as cause of her chronic hyponatremia. 4. Other medical problems include: A. Hypertension. B. Leukopenia. C. Macrocytosis per history: She is followed at [facility]. 5. She has had hemodialysis, temporary hemodialysis catheter placed; however, her urine output has picked up, although she has obviously received Lasix 60 mg IV once. She also has anemia with hemoglobin and hematocrit of 8.4 and 23.8 and thrombocytopenia. The platelet count of 73,000. PLAN: To continue with famotidine. Continue saliva substitute. Continue with levothyroxine. Continue with piperacillin and tazobactam. So far, her urine showed gram-negative rods in 2 of 4 bottles. The identification and sensitivity is still pending and her urine culture showed greater than 100,000 colony forming units/mL of Escherichia coli. GABRIEL REYES MD DR: ENRIQUE/jennyfer JOB#: [id number] / [id number]
[2019-07-17] MEDS ORDERED: SODIUM CHLORIDE 3 % 200 ML IV ONE (11:30)
[2019-07-17] MEDS: LACTOBACILLUS RHAMNOSUS GG 1 CAPSULE. PO SCH ×2 (14:20→21:38)
--- NOTE | 2019-07-17 14:59 | NUR ---
SS following up with discharge planning. PT/OT evaluated and recommended detention unit at discharge. SS met with pt and pt's daughter in room and discussed detention unit and discharge planning. Pt and pt's daughter reported that they would like to discuss with pt's son and would notify SS or pt's RN with decision. SS will continue to follow for discharge planning.
[2019-07-17] MEDS: PATCH REMOVAL. MC SCH (21:00)
[2019-07-17] MEDS: ALPRAZolam 0.5 MG TABLET PO PRN (21:37)
[2019-07-17] MEDS: FAMOTIDINE 20 MG TABLET. PO SCH (21:38)
[2019-07-18] VITALS (13 sets, daily range): BP systolic 93–158; BP diastolic 46–64
[2019-07-18] MEDS: ACETAMINOPHEN 325 MG TABLET. PO PRN ×3 (01:56→17:02)
[2019-07-18] MEDS: LEVOTHYROXINE 100 MCG TABLET PO SCH (06:17)
[2019-07-18 07:06] LABS: CALCIUM 7.5 mg/dL (8.5-10.1); CREATININE 3.8 mg/dL (0.6-1.0); GFR 11.7; MAGNESIUM 1.9 mg/dL (1.8-2.4); PHOSPHORUS 4.4 mg/dL (2.6-4.7)
--- NOTE | 2019-07-18 08:38 | PDOC ---
Infectious Disease Note Subjective Subjective Denies pain No further N/V/D No fevers last 24 hours 5L O2 ROS ROS per HPI Vital Sign Vital Signs Vital Signs Date Time Temp Pulse Resp B/P (MAP) Pulse Ox O2 Delivery O2 Flow Rate FiO2 07/18/19 07:00 85 24 117/64 (81) 99 Nasal Cannula 2.0 07/18/19 04:00 99.1 99.1 Physical Exam PHYSICAL EXAM GENERAL: Resting quietly, arouses to name LUNGS: Improved aeration HEART: S1, S2. regular ABDOMEN: Soft, BS present : Kuo EXTREMITIES: 1+ edema lower extremities bilaterally NEUROLOGIC: Nods to questions appropriately Temp RIJ/HDC (07/16) without signs of complications Labs Lab Laboratory Tests Test 07/18/19 06:15 Sodium Level 128 mmol/L (136-145) Potassium Level 4.0 mmol/L (3.5-5.1) Chloride Level 91 mmol/L (98-107) Carbon Dioxide Level 26 mmol/L (21-32) Anion Gap 11 (6-14) Blood Urea Nitrogen 71 mg/dL (7-20) Creatinine 3.8 mg/dL (0.6-1.0) Estimated GFR (Cockcroft-Gault) 11.7 Glucose Level 108 mg/dL (70-99) Calcium Level 7.5 mg/dL (8.5-10.1) Phosphorus Level 4.4 mg/dL (2.6-4.7) Magnesium Level 1.9 mg/dL (1.8-2.4) Micro Microbiology 07/17/19 Blood Culture - Preliminary, Resulted NO GROWTH AFTER 1 DAY 07/14. ([facility]) URINE CULT RES 1 Final Escherichia coli Antibiotic RSLT#1 Amoxicillin/Clavulanic Acid S<=2 Ampicillin S<=2 Cefepime S<=0.12 Ceftriaxone S<=0.25 Cefuroxime S =2 Ciprofloxacin S<=0.25 Ertapenem S<=0.12 Gentamicin S<=1 Imipenem S<=0.25 Levofloxacin S<=0.12 Meropenem S<=0.25 Nitrofurantoin S<=16 Piperacillin/Tazobactam S<=4 Tetracycline S<=1 Tobramycin S<=1 Trimethoprim/Sulfa S<=20 07/14. ([facility]) BLOOD CULTURE Final GRAM NEGATIVE RODS IN 2 OF 4 BOTTLES (2 SETS)THE ANAEROBIC BOTTLE OF EACH SET IS POSITIVE. THE PATIENT HAS BEEN TRANSFERRED TO [facility]. CALLED TO OFELIA KEITH, [facility] ICU, 07/16/19 AT 0820 BY Mello DE PAZ. CULTURES HAVE BEEN SENT TO [facility] FOR FURTHER IDENTIFICATION. Objective Assessment Sepsis from Gram neg bacteremia at [facility] ,[place] pending Urinary tract infection. UC E coli (pansensitive) Leukocytosis with bandemia. Acute kidney injury/acute tubular necrosis. Nausea, vomiting, and diarrhea, resolved. Severe hyponatremia with underlying history of chronic hyponatremia. Improving Abnormal liver function tests. Right pyelocaliectasis. Thrombocytopenia Ascites Plan Plan of Care Merrem, renal dosing. Awaiting GNR ID/suspetibilites at [facility] Monitor labs/temp Continue supportive care. D/w nursing Critically ill Attending Co-Sign The patient was seen and interviewed as well as examined at the bedside. The art was reviewed. The case was discussed. Agree with the plan of care. BASIL MEREDITH APRN Jul 18, 2019 08:38 JUD SALCEDO MD Jul 18, 2019 13:03
--- NOTE | 2019-07-18 09:02 | PN ---
DATE: 07/18/2019 SUBJECTIVE: The patient is resting, slightly propped up in bed, in no apparent respiratory distress, sleeping comfortably. The nursing staff stated that she did have some discomfort last night; however, she went to sleep this morning. PHYSICAL EXAMINATION: GENERAL: When I examined her, she looked pale. No jaundice, cyanosis, or thyromegaly. No jugular venous distention. No limb edema. VITAL SIGNS: Her heart rate was 83, blood pressure was 109/56, temperature was 99.1, respiratory rate 21, and oxygen saturation was 97% on 2 liters of oxygen. HEAD, EYES, EARS, NOSE, AND THROAT: Normocephalic, atraumatic. NECK: Supple. HEART: Normal first and second heart sounds. No gallop or murmur. CHEST: Clear to auscultation. No crepitation or rhonchi. ABDOMEN: Distended, soft, nontender. NEUROLOGIC: She was sleepy, but arousable. All cranial nerves intact. She moves extremities without difficulty. Her intake over the last 24 hours was 1255, output was 1600. LABORATORY DATA: As of this morning, her serum sodium is up to 128, potassium 4, chloride 91, bicarbonate 26, anion gap of 11, BUN 71, creatinine was 3.8. Estimated GFR was 11.7. Her glucose was 108, calcium was 7.5, phosphorus 4.4, magnesium was 1.9. Her white cell count was 15,000, hemoglobin 8.4, hematocrit 23.8, MCV 100, and platelet count of 73,000. ASSESSMENT: 1. Acute kidney injury, multifactorial due to dehydration as she has recurrent bouts of nausea, vomiting, diarrhea. She was also on meloxicam as well as losartan, both of which were put on hold. 2. Chronic hyponatremia, for which she was on salt tablets; however, her primary care physician stated that her sodium was 136 mEq per liter, creatinine 0.9 mg in Charleen 2019. 3. Her TSH was normal and her morning cortisol was 57, excluding the possibility of hypothyroidism and/or Paul's disease as a cause of her chronic hyponatremia. 4. Other medical problems include: A. Hypertension. B. Leukopenia. C. Macrocytosis per history, for which she was followed at [facility]. 5. She apparently has had temporary hemodialysis catheter placed; however, her urine output has picked up and in fact, her creatinine is trending down. PLAN: To continue with IV antibiotic. Continue with famotidine. Continue with saliva substitute. Continue with levothyroxine. Her urine culture showed growth of more than 100,000 colony forming units per mL of Gram-negative rods identified as Escherichia coli. The sensitivity is still pending at the time of this dictation. As the patient is stable, she can be transferred to perhaps [facility] [place] [address] [facility] [place]. GABRIEL REYES MD DR: ENRIQUE/jennyfer JOB#: [id number] / [id number]
[2019-07-18] MEDS: LACTOBACILLUS RHAMNOSUS GG 1 CAPSULE. PO SCH ×2 (09:17→20:46)
[2019-07-18] MEDS: amLODIPine BESYLATE 10 MG TABLET PO SCH (09:17)
[2019-07-18] MEDS: LIDOCAINE (700MG/PATCH) PATCH. TD SCH (09:18)
[2019-07-18] MEDS: MEROPENEM 500 MG in IV NORMAL SALINE 50ML 50 ML IV SCH (10:12)
--- NOTE | 2019-07-18 10:33 | PDOC ---
PROGRESS NOTES Subjective Subjective SEEN IN FOLLOW UP OF ARF IN SETTING OF SEPSIS Objective Objective Vital Signs Date Time Temp Pulse Resp B/P (MAP) Pulse Ox O2 Delivery O2 Flow Rate FiO2 07/18/19 09:17 83 126/66 07/18/19 08:00 21 97 Nasal Cannula 2.0 07/18/19 04:00 99.1 99.1 Intake and Output 07/18/19 07:00 Intake Total 1020 ml Output Total 2160 ml Balance -1140 ml Intake Oral 720 ml IV Total 300 ml Output Urine Total 2160 ml Physical Exam Abdomen: Normal bowel sounds, Soft, No tenderness, No hepatosplenomegaly, No masses Heart: Regular rate, Normal S1, Normal S2, No murmurs, Gallops Extremities: No clubbing, No cyanosis, No edema, Normal pulses, No tenderness/swelling General: Alert Lungs: Clear to auscultation, Normal air movement Psych/Mental Status: Mental status NL, Mood NL Diagnosis RENAL FAILURE: Acute (Acute tubular necrosis) Plan Plan of Care RENAL FUNCTION IS IMPROVING. CONT ANTIBIOTICS. OK TO D/C FROM ICU TO FLOOR Comment Review of Relevant I have reviewed the following items logan (where applicable) has been applied. Labs Laboratory Tests Test 07/17/19 04:00 07/18/19 06:15 White Blood Count 15.1 x10^3/uL (4.0-11.0) Red Blood Count 2.39 x10^6/uL (3.50-5.40) Hemoglobin 8.4 g/dL (12.0-15.5) Hematocrit 23.8 % (36.0-47.0) Mean Corpuscular Volume 100 fL (79-100) Mean Corpuscular Hemoglobin 35 pg (25-35) Mean Corpuscular Hemoglobin Concent 35 g/dL (31-37) Red Cell Distribution Width 13.0 % (11.5-14.5) Platelet Count 73 x10^3/uL (140-400) Sodium Level 125 mmol/L (136-145) 128 mmol/L (136-145) Potassium Level 3.9 mmol/L (3.5-5.1) 4.0 mmol/L (3.5-5.1) Chloride Level 88 mmol/L (98-107) 91 mmol/L (98-107) Carbon Dioxide Level 29 mmol/L (21-32) 26 mmol/L (21-32) Anion Gap 8 (6-14) 11 (6-14) Blood Urea Nitrogen 68 mg/dL (7-20) 71 mg/dL (7-20) Creatinine 4.1 mg/dL (0.6-1.0) 3.8 mg/dL (0.6-1.0) Estimated GFR (Cockcroft-Gault) 10.7 11.7 Glucose Level 97 mg/dL (70-99) 108 mg/dL (70-99) Calcium Level 6.9 mg/dL (8.5-10.1) 7.5 mg/dL (8.5-10.1) Phosphorus Level 4.4 mg/dL (2.6-4.7) 4.4 mg/dL (2.6-4.7) Magnesium Level 2.0 mg/dL (1.8-2.4) 1.9 mg/dL (1.8-2.4) Laboratory Tests Test 07/18/19 06:15 Sodium Level 128 mmol/L (136-145) Potassium Level 4.0 mmol/L (3.5-5.1) Chloride Level 91 mmol/L (98-107) Carbon Dioxide Level 26 mmol/L (21-32) Anion Gap 11 (6-14) Blood Urea Nitrogen 71 mg/dL (7-20) Creatinine 3.8 mg/dL (0.6-1.0) Estimated GFR (Cockcroft-Gault) 11.7 Glucose Level 108 mg/dL (70-99) Calcium Level 7.5 mg/dL (8.5-10.1) Phosphorus Level 4.4 mg/dL (2.6-4.7) Magnesium Level 1.9 mg/dL (1.8-2.4) Microbiology 07/17/19 Blood Culture - Preliminary, Resulted NO GROWTH AFTER 1 DAY Medications Current Medications Piperacillin Sod/ Tazobactam Sod (Zosyn Per Pharmacy) 1 each PRN DAILY PRN MC SEE COMMENTS; Start 07/14/19 at 20:00; Stop 07/17/19 at 16:09; Status DC Linezolid/Dextrose 300 ml @ 300 mls/hr Q12HR IV Last administered on 07/15/19at 09:23; Start 07/14/19 at 21:00; Stop 07/15/19 at 13:14; Status DC Piperacillin Sod/ Tazobactam Sod (Zosyn Per Pharmacy) 1 each PRN DAILY PRN MC SEE COMMENTS; Start 07/15/19 at 00:00; Status UNV Piperacillin Sod/ Tazobactam Sod 2.25 gm/Sodium Chloride 50 ml @ 100 mls/hr Q8HRS IV Last administered on 07/17/19at 05:59; Start 07/14/19 at 22:00; Stop 07/17/19 at 08:40; Status DC Sodium Bicarbonate 150 meq/Dextrose 1,150 ml @ 150 mls/hr Q7H40M IV Last administered on 07/16/19at 00:46; Start 07/14/19 at 21:00; Stop 07/16/19 at 11:17; Status DC Famotidine (Pepcid) 20 mg QHS PO ; Start 07/14/19 at 23:00; Stop 07/14/19 at 23:02; Status DC Levothyroxine Sodium (Synthroid) 300 mcg DAILY06 PO ; Start 07/15/19 at 06:00; Status Cancel Ondansetron HCl (Zofran) 4 mg PRN Q4HRS PRN IVP NAUSEA/VOMITING 1ST CHOICE Last administered on 07/15/19at 15:00; Start 07/14/19 at 22:30 Amlodipine Besylate (Norvasc) 10 mg DAILY PO Last administered on 07/18/19at 09:17; Start 07/15/19 at 09:00 Famotidine (Pepcid) 20 mg QHS PO Last administered on 07/17/19at 21:38; Start 07/15/19 at 21:00 Levothyroxine Sodium (Synthroid) 100 mcg DAILY06 PO Last administered on 07/18/19at 06:17; Start 07/15/19 at 06:00 Sodium Chloride 200 ml @ 50 mls/hr 1X ONCE IV Last administered on 07/15/19at 10:36; Start 07/15/19 at 10:15; Stop 07/15/19 at 14:14; Status DC Acetaminophen (Tylenol) 650 mg PRN Q4HRS PRN PO HEADACHE Last administered on 07/18/19at 01:56; Start 07/15/19 at 10:45 Saliva Substitute (Biotene Moisturizing Mouth) 2 spray PRN Q15MIN PRN PO DRY MOUTH; Start 07/15/19 at 10:45 Daptomycin 390 mg/ Sodium Chloride 50 ml @ 100 mls/hr Q48H IV Last administered on 07/15/19at 14:56; Start 07/15/19 at 14:00; Stop 07/16/19 at 08:27; Status DC Alprazolam (Xanax) 0.5 mg PRN Q6HRS PRN PO ANXIETY / AGITATION Last administered on 07/17/19at 21:37; Start 07/15/19 at 21:45 Albuterol/ Ipratropium (Duoneb) 3 ml 1X ONCE NEB Last administered on 07/16/19at 00:59; Start 07/16/19 at 01:00; Stop 07/16/19 at 01:01; Status DC Lidocaine (Lidoderm) 1 patch DAILY TD Last administered on 07/18/19at 09:18; Start 07/16/19 at 09:00 Miscellaneous (Lidoderm Patch Removal) 1 ea QHS MC Last administered on 07/17/19at 21:00; Start 07/16/19 at 21:00 Furosemide (Lasix) 60 mg 1X ONCE IVP Last administered on 07/16/19at 11:40; Start 07/16/19 at 11:30; Stop 07/16/19 at 11:31; Status DC Potassium Chloride/Water 100 ml @ 100 mls/hr Q1H IV Last administered on 07/16/19at 14:38; Start 07/16/19 at 11:30; Stop 07/16/19 at 14:29; Status DC Lidocaine HCl (Buffered Lidocaine 1%) 3 ml STK-MED ONCE .ROUTE ; Start 07/16/19 at 13:18; Stop 07/16/19 at 13:18; Status DC Heparin Sodium (Porcine) (Hep Lock Adult) 500 unit STK-MED ONCE .ROUTE ; Start 07/16/19 at 13:20; Stop 07/16/19 at 13:21; Status DC Heparin Sodium (Porcine) (Heparin Sodium) 10,000 unit STK-MED ONCE .ROUTE ; Start 07/16/19 at 13:21; Stop 07/16/19 at 13:22; Status DC Lidocaine HCl (Buffered Lidocaine 1%) 3 ml 1X ONCE INJ Last administered on 07/16/19at 13:43; Start 07/16/19 at 13:45; Stop 07/16/19 at 13:46; Status DC Heparin Sodium/ Sodium Chloride (HEPARIN for ARTERIAL LINE FLUSH) 1,000 unit 1X ONCE IV ; Start 07/16/19 at 13:45; Stop 07/16/19 at 13:46; Status DC Heparin Sodium (Porcine) (Hep Lock Adult) 2,800 unit Q12HR IVP ; Start 07/16/19 at 21:00; Stop 07/17/19 at 15:35; Status DC Sodium Chloride 250 ml @ 41.6 mls/hr 1X ONCE IV Last administered on 07/16/19at 14:38; Start 07/16/19 at 14:30; Stop 07/16/19 at 20:30; Status DC Lactobacillus Rhamnosus (Culturelle) 1 cap BID PO Last administered on 07/18/19at 09:17; Start 07/16/19 at 21:00 Meropenem 500 mg/ Sodium Chloride 50 ml @ 100 mls/hr DAILY IV Last administered on 07/18/19at 10:12; Start 07/17/19 at 09:00 Sodium Chloride 200 ml @ 50 mls/hr 1X ONCE IV Last administered on 07/17/19at 11:26; Start 07/17/19 at 11:30; Stop 07/17/19 at 15:29; Status DC Active Scripts Active Reported Chlorpheniramine Maleate 4 Mg Tablet 1 Tab PO Q4HRS 3 Days Synthroid (Levothyroxine Sodium) 100 Mcg Tablet 1 Tab PO DAILY Ranitidine Hcl 150 Mg Capsule 150 Mg PO DAILY Tramadol Hcl 50 Mg Tablet 50 Mg PO Q4HRS PRN Meloxicam 7.5 Mg Tablet 1 Tab PO DAILY 30 Days Losartan Potassium 100 Mg Tablet 100 Mg PO DAILY Amlodipine Besylate 10 Mg Tablet 10 Mg PO DAILY Vitals/I & O Vital Sign - Last 24 Hours 07/17/19 07/17/19 07/17/19 07/17/19 11:00 12:00 12:00 13:00 Temp 98.6 98.6 Pulse 88 83 88 Resp 17 21 30 B/P (MAP) 117/56 (76) 131/62 (85) 121/60 (80) Pulse Ox 100 98 95 O2 Delivery Nasal Cannula Nasal Cannula Nasal Cannula Nasal Cannula O2 Flow Rate 2.0 2.0 2.0 2.0 07/17/19 07/17/19 07/17/19 07/17/19 14:00 15:00 15:39 16:00 Temp 99.0 99.0 Pulse 86 94 89 Resp 17 18 20 B/P (MAP) 120/46 (70) 105/76 (86) 97/48 (64) Pulse Ox 98 100 96 O2 Delivery Nasal Cannula Nasal Cannula Nasal Cannula Nasal Cannula O2 Flow Rate 2.0 2.0 2.0 2.0 07/17/19 07/17/19 07/17/19 07/17/19 17:00 18:00 19:00 20:00 Pulse 90 94 92 Resp 22 B/P (MAP) 98/50 (66) 139/59 (85) 117/58 (77) Pulse Ox 94 96 98 O2 Delivery Nasal Cannula Nasal Cannula Nasal Cannula Nasal Cannula O2 Flow Rate 2.0 2.0 2.0 2.0 07/17/19 07/17/19 07/17/19 07/17/19 20:00 21:00 22:00 23:00 Temp 98.8 98.8 Pulse 94 96 83 82 Resp 24 20 21 B/P (MAP) 122/61 (81) 96/55 (69) 118/49 (72) 118/49 (72) Pulse Ox 95 95 98 96 O2 Delivery Nasal Cannula Nasal Cannula Nasal Cannula Nasal Cannula O2 Flow Rate 2.0 2.0 2.0 2.0 07/18/19 07/18/19 07/18/19 07/18/19 00:00 00:00 01:00 02:00 Temp 98.0 98.0 Pulse 84 94 90 Resp 19 B/P (MAP) 93/46 (62) 97/58 (71) 120/62 (81) Pulse Ox 98 97 99 O2 Delivery Nasal Cannula Nasal Cannula Nasal Cannula Nasal Cannula O2 Flow Rate 2.0 2.0 2.0 2.0 07/18/19 07/18/19 07/18/19 07/18/19 03:00 04:00 04:00 05:00 Temp 99.1 99.1 Pulse 86 86 84 Resp 18 B/P (MAP) 106/50 (68) 132/60 (84) 106/51 (69) Pulse Ox 99 98 97 O2 Delivery Nasal Cannula Nasal Cannula Nasal Cannula Nasal Cannula O2 Flow Rate 2.0 2.0 2.0 2.0 07/18/19 07/18/19 07/18/19 07/18/19 06:00 07:00 08:00 09:17 Pulse 92 85 83 83 Resp 22 24 21 B/P (MAP) 101/47 (65) 117/64 (81) 109/56 (73) 126/66 Pulse Ox 95 99 97 O2 Delivery Nasal Cannula Nasal Cannula Nasal Cannula O2 Flow Rate 2.0 2.0 2.0 Intake and Output 07/17/19 07/17/19 07/18/19 15:00 23:00 07:00 Intake Total 580 ml 440 ml Output Total 830 ml 580 ml 750 ml Balance -250 ml -140 ml -750 ml HIRAL EVANS MD Jul 18, 2019 10:33
[2019-07-18] MEDS: ALPRAZolam 0.5 MG TABLET PO PRN (11:39)
--- NOTE | 2019-07-18 18:37 | NUR ---
pT HAD UNEVENTFUL DAY. tAKING PO FLUIDS AND GOOD uo WITH STEVENS. iN CHAIR MOST OF DAY. wEAK STANDING WITH ASSIST WITH WALKER TO BEDSIDE COMMODE. pT IN [facility]
[2019-07-18] MEDS: FAMOTIDINE 20 MG TABLET. PO SCH (20:46)
[2019-07-18] MEDS: PATCH REMOVAL. MC SCH (20:47)
[2019-07-19 03:00] VITALS: BP 144/64
[2019-07-19 05:09] LABS: HEMATOCRIT 24.5 % (36.0-47.0); HEMOGLOBIN 8.5 g/dL (12.0-15.5); RED BLOOD COUNT 2.44 x10^6/uL (3.50-5.40); RED CELL DISTRIBUTION WIDTH 13.3 % (11.5-14.5); WHITE BLOOD COUNT 13.6 x10^3/uL (4.0-11.0)
[2019-07-19 05:51] LABS: ALBUMIN 1.5 g/dL (3.4-5.0); ALBUMIN/GLOBULIN RATIO 0.4 (1.0-1.7); CALCIUM 7.6 mg/dL (8.5-10.1); GFR 15.4; POTASSIUM 4.2 mmol/L (3.5-5.1); TOTAL BILIRUBIN 0.8 mg/dL (0.2-1.0); TOTAL PROTEIN 5.3 g/dL (6.4-8.2)
[2019-07-19] MEDS: LEVOTHYROXINE 100 MCG TABLET PO SCH (06:02)
--- NOTE | 2019-07-19 06:16 | EKG ---
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
[2019-07-19] MEDS ORDERED: dilTIAZem IV PUSH 25 MG/5 ML VIAL ONE (06:43)
[2019-07-19] MEDS ORDERED: dilTIAZem IV PUSH 25 MG/5 ML VIAL IVP ONE (06:45)
[2019-07-19 07:00] VITALS: BP 133/57
[2019-07-19] MEDS ORDERED: dilTIAZem INJ 125 MG in IV DEXTROSE 5% 100ML 100 ML IV PRN (07:00)
--- NOTE | 2019-07-19 08:00 | PN ---
DATE: 07/19/2019 SUBJECTIVE: The patient is resting flat, sleeping comfortably, no apparent distress. She apparently had an episode of atrial fibrillation with rapid ventricular response, responded to Cardizem bolus. She is now back in sinus rhythm. According to nursing staff, she has been anxious throughout the night, but she normally sleeps in the morning. PHYSICAL EXAMINATION: GENERAL: When I saw her this morning, she was pale. No jaundice, cyanosis or thyromegaly. No jugular venous distention. No lower limb edema. VITAL SIGNS: Her heart rate was 93, blood pressure was 144/64, temperature was 97.7, respiratory rate was 24 and oxygen saturation was 95% on 2 L of oxygen. HEAD, EYES, EARS, NOSE AND THROAT: Showed normocephalic, atraumatic. NECK: Supple. HEART: Normal first and second heart sounds. No gallop or murmur. CHEST: Clear to auscultation. No crepitation or rhonchi. ABDOMEN: Distended, soft, nontender. NEUROLOGICAL: She was sleepy, but arousable. All cranial nerves are intact. She moves extremities without difficulty. She has an indwelling Kuo catheter. Her intake was 1070, output was 2160. LABORATORY DATA: Her lab work this morning showed a serum sodium 130, potassium 4.2, chloride 94, bicarbonate 26, anion gap of 10, BUN 62, creatinine was 3, estimated GFR was 15 mL per minute, her glucose 114, calcium was 7.6. Total bilirubin, AST, ALT were normal. Alkaline phosphatase slightly elevated. Total protein was 5.3. Albumin was 1.5. Her white cell count is 13,600, hemoglobin 8.5, hematocrit 24.5, MCV 100 and platelet count of 100,000. ASSESSMENT: 1. Acute kidney injury, multifactorial, due to dehydration. She has recurrent bouts of nausea, vomiting, diarrhea. She was also on meloxicam as well as losartan, both of which were discontinued. Her kidney function is steadily improving and her urine output is steadily rising. 2. Chronic hyponatremia, improving. Her serum sodium has risen up from 119 to 130. 3. Her TSH was normal and her morning cortisol was high at 57 excluding the possibility of hypothyroidism and/or Kearney disease as a cause of her chronic hyponatremia. 4. Other medical problems include: A. Hypertension. B. Leukopenia. C. Macrocytosis history, followed by an oncologist at [facility]. 5. She had a short episode of atrial fibrillation with rapid ventricular response, treated with Cardizem bolus IV and converted to normal sinus rhythm. PLAN: To continue with IV antibiotic. She grew Escherichia coli in her urine culture as well as blood culture. Continue with famotidine. Continue levothyroxine. Start the process of physical and occupational therapy. GABRIEL REYES MD DR: ENRIQUE/jennyfer JOB#: [id number] / [id number]
[2019-07-19] MEDS: MEROPENEM 500 MG in IV NORMAL SALINE 50ML 50 ML IV SCH (08:56)
[2019-07-19] MEDS: LACTOBACILLUS RHAMNOSUS GG 1 CAPSULE. PO SCH ×2 (08:56→22:43)
[2019-07-19] MEDS: amLODIPine BESYLATE 10 MG TABLET PO SCH ×2 (08:56→22:44)
[2019-07-19] MEDS: ALPRAZolam 0.5 MG TABLET PO PRN (08:57)
[2019-07-19] MEDS: LIDOCAINE (700MG/PATCH) PATCH. TD SCH (08:57)
--- NOTE | 2019-07-19 09:13 | PDOC ---
Infectious Disease Note Subjective Subjective Feeling better this morning More rested Throat dry Supplemental O2 Denies N/V/D/F/C ROS ROS per HPI Vital Sign Vital Signs Vital Signs Date Time Temp Pulse Resp B/P (MAP) Pulse Ox O2 Delivery O2 Flow Rate FiO2 07/19/19 08:56 93 144/64 07/19/19 08:00 Nasal Cannula 2.0 07/19/19 03:00 97.7 24 95 97.7 Physical Exam PHYSICAL EXAM GENERAL: Lying down, alert, appears comfortable HENT: Oral cavity dry, dentures in place LUNGS: Improved aeration HEART: S1, S2. regular ABDOMEN: Soft, BS present : Kuo EXTREMITIES: Trace edema lower extremities bilaterally NEUROLOGIC: Alert, answers questions appropriately Temp RIJ/HDC (07/16) without signs of complications Labs Lab Laboratory Tests Test 07/19/19 04:35 White Blood Count 13.6 x10^3/uL (4.0-11.0) Red Blood Count 2.44 x10^6/uL (3.50-5.40) Hemoglobin 8.5 g/dL (12.0-15.5) Hematocrit 24.5 % (36.0-47.0) Mean Corpuscular Volume 100 fL (79-100) Mean Corpuscular Hemoglobin 35 pg (25-35) Mean Corpuscular Hemoglobin Concent 35 g/dL (31-37) Red Cell Distribution Width 13.3 % (11.5-14.5) Platelet Count 100 x10^3/uL (140-400) Sodium Level 130 mmol/L (136-145) Potassium Level 4.2 mmol/L (3.5-5.1) Chloride Level 94 mmol/L (98-107) Carbon Dioxide Level 26 mmol/L (21-32) Anion Gap 10 (6-14) Blood Urea Nitrogen 62 mg/dL (7-20) Creatinine 3.0 mg/dL (0.6-1.0) Estimated GFR (Cockcroft-Gault) 15.4 BUN/Creatinine Ratio 21 (6-20) Glucose Level 114 mg/dL (70-99) Calcium Level 7.6 mg/dL (8.5-10.1) Total Bilirubin 0.8 mg/dL (0.2-1.0) Aspartate Amino Transf (AST/SGOT) 14 U/L (15-37) Alanine Aminotransferase (ALT/SGPT) 40 U/L (14-59) Alkaline Phosphatase 125 U/L (46-116) Total Protein 5.3 g/dL (6.4-8.2) Albumin 1.5 g/dL (3.4-5.0) Albumin/Globulin Ratio 0.4 (1.0-1.7) Micro Microbiology 07/17/19 Blood Culture - Preliminary, Resulted NO GROWTH AFTER 1 DAY 07/14. ([facility]) URINE CULT RES 1 Final Escherichia coli Antibiotic RSLT#1 Amoxicillin/Clavulanic Acid S<=2 Ampicillin S<=2 Cefepime S<=0.12 Ceftriaxone S<=0.25 Cefuroxime S =2 Ciprofloxacin S<=0.25 Ertapenem S<=0.12 Gentamicin S<=1 Imipenem S<=0.25 Levofloxacin S<=0.12 Meropenem S<=0.25 Nitrofurantoin S<=16 Piperacillin/Tazobactam S<=4 Tetracycline S<=1 Tobramycin S<=1 Trimethoprim/Sulfa S<=20 07/14. ([facility]) BLOOD CULTURE BLD CULT RESULT 1 Preliminary Gram negative rods Objective Assessment Sepsis from Gram neg bacteremia at [facility] ,[place] pending Urinary tract infection. UC E coli (pansensitive) Leukocytosis with bandemia. Acute kidney injury/acute tubular necrosis. Nausea, vomiting, and diarrhea, resolved. Severe hyponatremia with underlying history of chronic hyponatremia. Improving Abnormal liver function tests. Right pyelocaliectasis. Thrombocytopenia Ascites Plan Plan of Care Merrem, renal dosing. Awaiting GNR ID/suspetibilites BC at [facility] Monitor labs/temp Continue supportive care. D/w nursing Patient seen and examined. Labs, micro, and chart reviewed. 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 Repeat BC neg here BASIL MEREDITH APRN Jul 19, 2019 09:13 KHADRA SALCEDO MD Jul 19, 2019 11:07
[2019-07-19] MEDS ORDERED: DIGOXIN IV 500 MCG/2 ML AMPUL. ONE (10:33)
[2019-07-19] MEDS ORDERED: DIGOXIN IV 500 MCG/2 ML AMPUL. IV ONE (10:45)
[2019-07-19 11:00] VITALS: BP 141/65
--- NOTE | 2019-07-19 11:31 | PDOC ---
PROGRESS NOTES Subjective Subjective SEEN IN FOLLOW UP OF ARF Objective Objective Vital Signs Date Time Temp Pulse Resp B/P (MAP) Pulse Ox O2 Delivery O2 Flow Rate FiO2 07/19/19 10:36 127 136/76 07/19/19 08:00 Nasal Cannula 2.0 07/19/19 07:00 98.2 25 95 98.2 Intake and Output 07/19/19 07:00 Intake Total 1370 ml Output Total 3270 ml Balance -1900 ml Intake Oral 1370 ml Output Urine Total 3270 ml Physical Exam Abdomen: Normal bowel sounds, Soft, No tenderness, No hepatosplenomegaly, No masses Heart: Regular rate, Normal S1, Normal S2, No murmurs, Gallops Extremities: No clubbing, No cyanosis, No edema, Normal pulses, No tende rness/swelling General: Alert Psych/Mental Status: Mental status NL, Mood NL Diagnosis RENAL FAILURE: Acute (Acute tubular necrosis) Plan Plan of Care RENAL FUNCTION IS IMPROVING SLOWLY. CONT TO MONITOR . ON CARDIZEM DRIP. Comment Review of Relevant I have reviewed the following items logan (where applicable) has been applied. Labs Laboratory Tests Test 07/18/19 06:15 07/19/19 04:35 Sodium Level 128 mmol/L (136-145) 130 mmol/L (136-145) Potassium Level 4.0 mmol/L (3.5-5.1) 4.2 mmol/L (3.5-5.1) Chloride Level 91 mmol/L (98-107) 94 mmol/L (98-107) Carbon Dioxide Level 26 mmol/L (21-32) 26 mmol/L (21-32) Anion Gap 11 (6-14) 10 (6-14) Blood Urea Nitrogen 71 mg/dL (7-20) 62 mg/dL (7-20) Creatinine 3.8 mg/dL (0.6-1.0) 3.0 mg/dL (0.6-1.0) Estimated GFR (Cockcroft-Gault) 11.7 15.4 Glucose Level 108 mg/dL (70-99) 114 mg/dL (70-99) Calcium Level 7.5 mg/dL (8.5-10.1) 7.6 mg/dL (8.5-10.1) Phosphorus Level 4.4 mg/dL (2.6-4.7) Magnesium Level 1.9 mg/dL (1.8-2.4) White Blood Count 13.6 x10^3/uL (4.0-11.0) Red Blood Count 2.44 x10^6/uL (3.50-5.40) Hemoglobin 8.5 g/dL (12.0-15.5) Hematocrit 24.5 % (36.0-47.0) Mean Corpuscular Volume 100 fL (79-100) Mean Corpuscular Hemoglobin 35 pg (25-35) Mean Corpuscular Hemoglobin Concent 35 g/dL (31-37) Red Cell Distribution Width 13.3 % (11.5-14.5) Platelet Count 100 x10^3/uL (140-400) BUN/Creatinine Ratio 21 (6-20) Total Bilirubin 0.8 mg/dL (0.2-1.0) Aspartate Amino Transf (AST/SGOT) 14 U/L (15-37) Alanine Aminotransferase (ALT/SGPT) 40 U/L (14-59) Alkaline Phosphatase 125 U/L (46-116) Total Protein 5.3 g/dL (6.4-8.2) Albumin 1.5 g/dL (3.4-5.0) Albumin/Globulin Ratio 0.4 (1.0-1.7) Laboratory Tests Test 07/19/19 04:35 White Blood Count 13.6 x10^3/uL (4.0-11.0) Red Blood Count 2.44 x10^6/uL (3.50-5.40) Hemoglobin 8.5 g/dL (12.0-15.5) Hematocrit 24.5 % (36.0-47.0) Mean Corpuscular Volume 100 fL (79-100) Mean Corpuscular Hemoglobin 35 pg (25-35) Mean Corpuscular Hemoglobin Concent 35 g/dL (31-37) Red Cell Distribution Width 13.3 % (11.5-14.5) Platelet Count 100 x10^3/uL (140-400) Sodium Level 130 mmol/L (136-145) Potassium Level 4.2 mmol/L (3.5-5.1) Chloride Level 94 mmol/L (98-107) Carbon Dioxide Level 26 mmol/L (21-32) Anion Gap 10 (6-14) Blood Urea Nitrogen 62 mg/dL (7-20) Creatinine 3.0 mg/dL (0.6-1.0) Estimated GFR (Cockcroft-Gault) 15.4 BUN/Creatinine Ratio 21 (6-20) Glucose Level 114 mg/dL (70-99) Calcium Level 7.6 mg/dL (8.5-10.1) Total Bilirubin 0.8 mg/dL (0.2-1.0) Aspartate Amino Transf (AST/SGOT) 14 U/L (15-37) Alanine Aminotransferase (ALT/SGPT) 40 U/L (14-59) Alkaline Phosphatase 125 U/L (46-116) Total Protein 5.3 g/dL (6.4-8.2) Albumin 1.5 g/dL (3.4-5.0) Albumin/Globulin Ratio 0.4 (1.0-1.7) Microbiology 07/17/19 Blood Culture - Preliminary, Resulted NO GROWTH AFTER 2 DAYS Medications Current Medications Piperacillin Sod/ Tazobactam Sod (Zosyn Per Pharmacy) 1 each PRN DAILY PRN MC SEE COMMENTS; Start 07/14/19 at 20:00; Stop 07/17/19 at 16:09; Status DC Linezolid/Dextrose 300 ml @ 300 mls/hr Q12HR IV Last administered on 07/15at 09:23; Start 07/14/19 at 21:00; Stop 07/15/19 at 13:14; Status DC Piperacillin Sod/ Tazobactam Sod (Zosyn Per Pharmacy) 1 each PRN DAILY PRN MC SEE COMMENTS; Start 07/15/19 at 00:00; Status UNV Piperacillin Sod/ Tazobactam Sod 2.25 gm/Sodium Chloride 50 ml @ 100 mls/hr Q8HRS IV Last administered on 07/17/19at 05:59; Start 07/14/19 at 22:00; Stop 07/17/19 at 08:40; Status DC Sodium Bicarbonate 150 meq/Dextrose 1,150 ml @ 150 mls/hr Q7H40M IV Last administered on 07/16/19at 00:46; Start 07/14/19 at 21:00; Stop 07/16/19 at 11:17; Status DC Famotidine (Pepcid) 20 mg QHS PO ; Start 07/14/19 at 23:00; Stop 07/14/19 at 23:02; Status DC Levothyroxine Sodium (Synthroid) 300 mcg DAILY06 PO ; Start 07/15/19 at 06:00; Status Cancel Ondansetron HCl (Zofran) 4 mg PRN Q4HRS PRN IVP NAUSEA/VOMITING 1ST CHOICE Last administered on 07/15/19at 15:00; Start 07/14/19 at 22:30 Amlodipine Besylate (Norvasc) 10 mg DAILY PO Last administered on 07/19/19at 08:56; Start 07/15/19 at 09:00 Famotidine (Pepcid) 20 mg QHS PO Last administered on 07/18/19at 20:46; Start 07/15/19 at 21:00 Levothyroxine Sodium (Synthroid) 100 mcg DAILY06 PO Last administered on 07/19/19at 06:02; Start 07/15/19 at 06:00 Sodium Chloride 200 ml @ 50 mls/hr 1X ONCE IV Last administered on 07/15/19at 10:36; Start 07/15/19 at 10:15; Stop 07/15/19 at 14:14; Status DC Acetaminophen (Tylenol) 650 mg PRN Q4HRS PRN PO HEADACHE Last administered on 07/18/19at 17:02; Start 07/15/19 at 10:45 Saliva Substitute (Biotene Moisturizing Mouth) 2 spray PRN Q15MIN PRN PO DRY MOUTH; Start 07/15/19 at 10:45 Daptomycin 390 mg/ Sodium Chloride 50 ml @ 100 mls/hr Q48H IV Last administered on 07/15/19at 14:56; Start 07/15/19 at 14:00; Stop 07/16/19 at 08:27; Status DC Alprazolam (Xanax) 0.5 mg PRN Q6HRS PRN PO ANXIETY / AGITATION Last administered on 07/19/19at 08:57; Start 07/15/19 at 21:45 Albuterol/ Ipratropium (Duoneb) 3 ml 1X ONCE NEB Last administered on 07/16/19at 00:59; Start 07/16/19 at 01:00; Stop 07/16/19 at 01:01; Status DC Lidocaine (Lidoderm) 1 patch DAILY TD Last administered on 07/19/19at 08:57; Start 07/16/19 at 09:00 Miscellaneous (Lidoderm Patch Removal) 1 ea QHS MC Last administered on 07/18/19at 20:47; Start 07/16/19 at 21:00 Furosemide (Lasix) 60 mg 1X ONCE IVP Last administered on 07/16/19at 11:40; Start 07/16/19 at 11:30; Stop 07/16/19 at 11:31; Status DC Potassium Chloride/Water 100 ml @ 100 mls/hr Q1H IV Last administered on 07/16/19at 14:38; Start 07/16/19 at 11:30; Stop 07/16/19 at 14:29; Status DC Lidocaine HCl (Buffered Lidocaine 1%) 3 ml STK-MED ONCE .ROUTE ; Start 07/16/19 at 13:18; Stop 07/16/19 at 13:18; Status DC Heparin Sodium (Porcine) (Hep Lock Adult) 500 unit STK-MED ONCE .ROUTE ; Start 07/16/19 at 13:20; Stop 07/16/19 at 13:21; Status DC Heparin Sodium (Porcine) (Heparin Sodium) 10,000 unit STK-MED ONCE .ROUTE ; Start 07/16/19 at 13:21; Stop 07/16/19 at 13:22; Status DC Lidocaine HCl (Buffered Lidocaine 1%) 3 ml 1X ONCE INJ Last administered on 07/16/19at 13:43; Start 07/16/19 at 13:45; Stop 07/16/19 at 13:46; Status DC Heparin Sodium/ Sodium Chloride (HEPARIN for ARTERIAL LINE FLUSH) 1,000 unit 1X ONCE IV ; Start 07/16/19 at 13:45; Stop 07/16/19 at 13:46; Status DC Heparin Sodium (Porcine) (Hep Lock Adult) 2,800 unit Q12HR IVP ; Start 07/16/19 at 21:00; Stop 07/17/19 at 15:35; Status DC Sodium Chloride 250 ml @ 41.6 mls/hr 1X ONCE IV Last administered on 07/16/19at 14:38; Start 07/16/19 at 14:30; Stop 07/16/19 at 20:30; Status DC Lactobacillus Rhamnosus (Culturelle) 1 cap BID PO Last administered on 07/19/19at 08:56; Start 07/16/19 at 21:00 Meropenem 500 mg/ Sodium Chloride 50 ml @ 100 mls/hr DAILY IV Last administered on 07/19/19at 08:56; Start 07/17/19 at 09:00 Sodium Chloride 200 ml @ 50 mls/hr 1X ONCE IV Last administered on 07/17/19at 11:26; Start 07/17/19 at 11:30; Stop 07/17/19 at 15:29; Status DC Diltiazem HCl (Cardizem Iv Push) 10 mg 1X ONCE IVP Last administered on 07/19/19at 10:04; Start 07/19/19 at 06:45; Stop 07/19/19 at 06:46; Status DC Diltiazem HCl 125 mg/Dextrose 125 ml @ 5 mls/hr CONT PRN IV SEE I/O RECORD Last administered on 07/19/19at 09:18; Start 07/19/19 at 07:00 Diltiazem HCl (Cardizem Iv Push) 25 mg STK-MED ONCE .ROUTE ; Start 07/19/19 at 06:43; Stop 07/19/19 at 06:43; Status DC Digoxin (Lanoxin) 250 mcg 1X ONCE IV Last administered on 07/19/19at 10:36; Start 07/19/19 at 10:45; Stop 07/19/19 at 10:46; Status DC Digoxin (Lanoxin) 500 mcg STK-MED ONCE .ROUTE ; Start 07/19/19 at 10:33; Stop 07/19/19 at 10:33; Status DC Active Scripts Active Reported Chlorpheniramine Maleate 4 Mg Tablet 1 Tab PO Q4HRS 3 Days Synthroid (Levothyroxine Sodium) 100 Mcg Tablet 1 Tab PO DAILY Ranitidine Hcl 150 Mg Capsule 150 Mg PO DAILY Tramadol Hcl 50 Mg Tablet 50 Mg PO Q4HRS PRN Meloxicam 7.5 Mg Tablet 1 Tab PO DAILY 30 Days Losartan Potassium 100 Mg Tablet 100 Mg PO DAILY Amlodipine Besylate 10 Mg Tablet 10 Mg PO DAILY Vitals/I & O Vital Sign - Last 24 Hours 07/18/19 07/18/19 07/18/19 07/18/19 15:00 19:00 20:00 23:00 Temp 98.3 98.6 98.7 98.3 98.6 98.7 Pulse 89 90 102 Resp 16 22 25 B/P (MAP) 120/58 (78) 121/46 (71) 158/64 (95) Pulse Ox 93 95 95 O2 Delivery Nasal Cannula Nasal Cannula Nasal Cannula Nasal Cannula O2 Flow Rate 2.0 2.0 2.0 2.0 07/19/19 07/19/19 07/19/19 07/19/19 03:00 07:00 08:00 08:56 Temp 97.7 98.2 97.7 98.2 Pulse 93 94 93 Resp 24 25 B/P (MAP) 144/64 (90) 133/57 (82) 144/64 Pulse Ox 95 95 O2 Delivery Nasal Cannula Nasal Cannula Nasal Cannula O2 Flow Rate 2.0 2.0 2.0 07/19/19 07/19/19 10:04 10:36 Pulse 118 127 B/P (MAP) 133/57 136/76 Intake and Output 07/18/19 07/18/19 07/19/19 15:00 23:00 07:00 Intake Total 400 ml 250 ml 720 ml Output Total 1320 ml 150 ml 1800 ml Balance -920 ml 100 ml -1080 ml HIRAL EVANS MD Jul 19, 2019 11:31
[2019-07-19 15:00] VITALS: BP 141/61
--- NOTE | 2019-07-19 16:34 | PDOC2 ---
CONSULT Date of Consult Date of Consult DATE: 07/19/19 TIME: 16:29 Reason for Consult Reason for Consult: New paroxysmal atrial fibrillation Referring Physician Referring Physician: Dr. Mai Identification/Chief Complaint Chief Complaint Weakness Source Source: Chart review, Patient History of Present Illness Reason for Visit: The patient is a 69-year-old female who was admitted several days ago for sepsis and renal failure. She has been treated with antibiotics as per the ID service and followed by the renal service. She reports feeling better. Her renal function has also improved. We are asked to see the patient today due to episodes of paroxysmal atrial fibrillation. She was initially treated with IV Cardizem and she converted to a sinus rhythm. She now has resumed atrial fibrillation. She is on IV Cardizem. Her rate is 90. She reports feeling relatively well and certainly better over the last several days. She denies any history of atrial fibrillation. She denies a history of coronary disease or congestive heart failure. Past Medical History Cardiovascular: HTN, Hyperlipidemia GI: GERD Musculoskeletal: Osteoarthritis Renal/: UTI Endocrine: Hypothyroidism Family History Family History: Hypertension Social History No ALCOHOL: none Drugs: None Lives: with Family Current Medications Current Medications Current Medications Piperacillin Sod/ Tazobactam Sod (Zosyn Per Pharmacy) 1 each PRN DAILY PRN MC SEE COMMENTS; Start 07/14/19 at 20:00; Stop 07/17/19 at 16:09; Status DC Linezolid/Dextrose 300 ml @ 300 mls/hr Q12HR IV Last administered on 07/15/19at 09:23; Start 07/14/19 at 21:00; Stop 07/15/19 at 13:14; Status DC Piperacillin Sod/ Tazobactam Sod (Zosyn Per Pharmacy) 1 each PRN DAILY PRN MC SEE COMMENTS; Start 07/15/19 at 00:00; Status UNV Piperacillin Sod/ Tazobactam Sod 2.25 gm/Sodium Chloride 50 ml @ 100 mls/hr Q8HRS IV Last administered on 07/17/19at 05:59; Start 07/14/19 at 22:00; Stop 07/17/19 at 08:40; Status DC Sodium Bicarbonate 150 meq/Dextrose 1,150 ml @ 150 mls/hr Q7H40M IV Last ad ministered on 07/16/19at 00:46; Start 07/14/19 at 21:00; Stop 07/16/19 at 11:17; Status DC Famotidine (Pepcid) 20 mg QHS PO ; Start 07/14/19 at 23:00; Stop 07/14/19 at 23:02; Status DC Levothyroxine Sodium (Synthroid) 300 mcg DAILY06 PO ; Start 07/15/19 at 06:00; Status Cancel Ondansetron HCl (Zofran) 4 mg PRN Q4HRS PRN IVP NAUSEA/VOMITING 1ST CHOICE Last administered on 07/15/19at 15:00; Start 07/14/19 at 22:30 Amlodipine Besylate (Norvasc) 10 mg DAILY PO Last administered on 07/19/19 08:56; Start 07/15/19 at 09:00 Famotidine (Pepcid) 20 mg QHS PO Last administered on 07/18/19at 20:46; Start 07/15/19 at 21:00 Levothyroxine Sodium (Synthroid) 100 mcg DAILY06 PO Last administered on 07/19/19at 06:02; Start 07/15/19 at 06:00 Sodium Chloride 200 ml @ 50 mls/hr 1X ONCE IV Last administered on 07/15/19at 10:36; Start 07/15/19 at 10:15; Stop 07/15/19 at 14:14; Status DC Acetaminophen (Tylenol) 650 mg PRN Q4HRS PRN PO HEADACHE Last administered on 07/18/19at 17:02; Start 07/15/19 at 10:45 Saliva Substitute (Biotene Moisturizing Mouth) 2 spray PRN Q15MIN PRN PO DRY MOUTH; Start 07/15/19 at 10:45 Daptomycin 390 mg/ Sodium Chloride 50 ml @ 100 mls/hr Q48H IV Last administered on 07/15/19at 14:56; Start 07/15/19 at 14:00; Stop 07/16/19 at 08:27; Status DC Alprazolam (Xanax) 0.5 mg PRN Q6HRS PRN PO ANXIETY / AGITATION Last administered on 07/19/19at 08:57; Start 07/15/19 at 21:45 Albuterol/ Ipratropium (Duoneb) 3 ml 1X ONCE NEB Last administered on 07/16/19at 00:59; Start 07/16/19 at 01:00; Stop 07/16/19 at 01:01; Status DC Lidocaine (Lidoderm) 1 patch DAILY TD Last administered on 07/19/19at 08:57; Start 07/16/19 at 09:00 Miscellaneous (Lidoderm Patch Removal) 1 ea QHS MC Last administered on 07/18/19at 20:47; Start 07/16/19 at 21:00 Furosemide (Lasix) 60 mg 1X ONCE IVP Last administered on 07/16/19at 11:40; Start 07/16/19 at 11:30; Stop 07/16/19 at 11:31; Status DC Potassium Chloride/Water 100 ml @ 100 mls/hr Q1H IV Last administered on 07/16/19at 14:38; Start 07/16/19 at 11:30; Stop 07/16/19 at 14:29; Status DC Lidocaine HCl (Buffered Lidocaine 1%) 3 ml STK-MED ONCE .ROUTE ; Start 07/16/19 at 13:18; Stop 07/16/19 at 13:18; Status DC Heparin Sodium (Porcine) (Hep Lock Adult) 500 unit STK-MED ONCE .ROUTE ; Start 07/16/19 at 13:20; Stop 07/16/19 at 13:21; Status DC Heparin Sodium (Porcine) (Heparin Sodium) 10,000 unit STK-MED ONCE .ROUTE ; S tart 07/16/19 at 13:21; Stop 07/16/19 at 13:22; Status DC Lidocaine HCl (Buffered Lidocaine 1%) 3 ml 1X ONCE INJ Last administered on 07/16/19at 13:43; Start 07/16/19 at 13:45; Stop 07/16/19 at 13:46; Status DC Heparin Sodium/ Sodium Chloride (HEPARIN for ARTERIAL LINE FLUSH) 1,000 unit 1X ONCE IV ; Start 07/16/19 at 13:45; Stop 07/16/19 at 13:46; Status DC Heparin Sodium (Porcine) (Hep Lock Adult) 2,800 unit Q12HR IVP ; Start 07/16/19 at 21:00; Stop 07/17/19 at 15:35; Status DC Sodium Chloride 250 ml @ 41.6 mls/hr 1X ONCE IV Last administered on 07/16/19at 14:38; Start 07/16/19 at 14:30; Stop 07/16/19 at 20:30; Status DC Lactobacillus Rhamnosus (Culturelle) 1 cap BID PO Last administered on 07/19/19at 08:56; Start 07/16/19 at 21:00 Meropenem 500 mg/ Sodium Chloride 50 ml @ 100 mls/hr DAILY IV Last administered on 07/19/19at 08:56; Start 07/17/19 at 09:00 Sodium Chloride 200 ml @ 50 mls/hr 1X ONCE IV Last administered on 07/17/19at 11:26; Start 07/17/19 at 11:30; Stop 07/17/19 at 15:29; Status DC Diltiazem HCl (Cardizem Iv Push) 10 mg 1X ONCE IVP Last administered on 07/19/19at 10:04; Start 07/19/19 at 06:45; Stop 07/19/19 at 06:46; Status DC Diltiazem HCl 125 mg/Dextrose 125 ml @ 5 mls/hr CONT PRN IV SEE I/O RECORD Last administered on 07/19/19at 09:18; Start 07/19/19 at 07:00 Diltiazem HCl (Cardizem Iv Push) 25 mg STK-MED ONCE .ROUTE ; Start 07/19/19 at 06:43; Stop 07/19/19 at 06:43; Status DC Digoxin (Lanoxin) 250 mcg 1X ONCE IV Last administered on 07/19/19at 10:36; Start 07/19/19 at 10:45; Stop 07/19/19 at 10:46; Status DC Digoxin (Lanoxin) 500 mcg STK-MED ONCE .ROUTE ; Start 07/19/19 at 10:33; Stop 07/19/19 at 10:33; Status DC Active Scripts Active Reported Chlorpheniramine Maleate 4 Mg Tablet 1 Tab PO Q4HRS 3 Days Synthroid (Levothyroxine Sodium) 100 Mcg Tablet 1 Tab PO DAILY Ranitidine Hcl 150 Mg Capsule 150 Mg PO DAILY Tramadol Hcl 50 Mg Tablet 50 Mg PO Q4HRS PRN Meloxicam 7.5 Mg Tablet 1 Tab PO DAILY 30 Days Losartan Potassium 100 Mg Tablet 100 Mg PO DAILY Amlodipine Besylate 10 Mg Tablet 10 Mg PO DAILY Allergies Allergies: Coded Allergies: No Known Drug Allergies (Unverified , 07/14/19) ROS General: YES: Fatigue, Malaise Physical Exam General: mild distress HEENT: Atraumatic Lungs: Other (slightly decreased breath sounds) Heart: Other (irregularly irregular) Abdomen: Normal bowel sounds Vitals VITALS Vital Signs Date Time Temp Pulse Resp B/P (MAP) Pulse Ox O2 Delivery O2 Flow Rate FiO2 07/19/19 11:00 89 27 141/65 (90) 2.0 07/19/19 08:00 Nasal Cannula 07/19/19 07:00 98.2 95 98.2 Labs Labs Laboratory Tests Test 07/18/19 06:15 07/19/19 04:35 Sodium Level 128 mmol/L (136-145) 130 mmol/L (136-145) Potassium Level 4.0 mmol/L (3.5-5.1) 4.2 mmol/L (3.5-5.1) Chloride Level 91 mmol/L (98-107) 94 mmol/L (98-107) Carbon Dioxide Level 26 mmol/L (21-32) 26 mmol/L (21-32) Anion Gap 11 (6-14) 10 (6-14) Blood Urea Nitrogen 71 mg/dL (7-20) 62 mg/dL (7-20) Creatinine 3.8 mg/dL (0.6-1.0) 3.0 mg/dL (0.6-1.0) Estimated GFR (Cockcroft-Gault) 11.7 15.4 Glucose Level 108 mg/dL (70-99) 114 mg/dL (70-99) Calcium Level 7.5 mg/dL (8.5-10.1) 7.6 mg/dL (8.5-10.1) Phosphorus Level 4.4 mg/dL (2.6-4.7) Magnesium Level 1.9 mg/dL (1.8-2.4) White Blood Count 13.6 x10^3/uL (4.0-11.0) Red Blood Count 2.44 x10^6/uL (3.50-5.40) Hemoglobin 8.5 g/dL (12.0-15.5) Hematocrit 24.5 % (36.0-47.0) Mean Corpuscular Volume 100 fL (79-100) Mean Corpuscular Hemoglobin 35 pg (25-35) Mean Corpuscular Hemoglobin Concent 35 g/dL (31-37) Red Cell Distribution Width 13.3 % (11.5-14.5) Platelet Count 100 x10^3/uL (140-400) BUN/Creatinine Ratio 21 (6-20) Total Bilirubin 0.8 mg/dL (0.2-1.0) Aspartate Amino Transf (AST/SGOT) 14 U/L (15-37) Alanine Aminotransferase (ALT/SGPT) 40 U/L (14-59) Alkaline Phosphatase 125 U/L (46-116) Total Protein 5.3 g/dL (6.4-8.2) Albumin 1.5 g/dL (3.4-5.0) Albumin/Globulin Ratio 0.4 (1.0-1.7) Laboratory Tests Test 07/19/19 04:35 White Blood Count 13.6 x10^3/uL (4.0-11.0) Red Blood Count 2.44 x10^6/uL (3.50-5.40) Hemoglobin 8.5 g/dL (12.0-15.5) Hematocrit 24.5 % (36.0-47.0) Mean Corpuscular Volume 100 fL (79-100) Mean Corpuscular Hemoglobin 35 pg (25-35) Mean Corpuscular Hemoglobin Concent 35 g/dL (31-37) Red Cell Distribution Width 13.3 % (11.5-14.5) Platelet Count 100 x10^3/uL (140-400) Sodium Level 130 mmol/L (136-145) Potassium Level 4.2 mmol/L (3.5-5.1) Chloride Level 94 mmol/L (98-107) Carbon Dioxide Level 26 mmol/L (21-32) Anion Gap 10 (6-14) Blood Urea Nitrogen 62 mg/dL (7-20) Creatinine 3.0 mg/dL (0.6-1.0) Estimated GFR (Cockcroft-Gault) 15.4 BUN/Creatinine Ratio 21 (6-20) Glucose Level 114 mg/dL (70-99) Calcium Level 7.6 mg/dL (8.5-10.1) Total Bilirubin 0.8 mg/dL (0.2-1.0) Aspartate Amino Transf (AST/SGOT) 14 U/L (15-37) Alanine Aminotransferase (ALT/SGPT) 40 U/L (14-59) Alkaline Phosphatase 125 U/L (46-116) Total Protein 5.3 g/dL (6.4-8.2) Albumin 1.5 g/dL (3.4-5.0) Albumin/Globulin Ratio 0.4 (1.0-1.7) Assessment/Plan Assessment/Plan 1. Paroxysmal atrial fibrillation. Rate now well-controlled on Cardizem. We'll continue present treatment. We'll check an echocardiogram for LV function and chamber sizes. We'll also recheck morning lab. 2. Sepsis. Improving. Followed by infectious disease. 3. Renal failure. Also improving. Followed by the renal service. Thank you for allowing us to participate in the care of your patient FINN DELGADO MD Jul 19, 2019 16:34
[2019-07-19 20:04] VITALS: BP 170/73
[2019-07-19] MEDS: PATCH REMOVAL. MC SCH (21:00)
[2019-07-19] MEDS ORDERED: amLODIPine BESYLATE 10 MG TABLET PO ONE (22:30)
[2019-07-19] MEDS: FAMOTIDINE 20 MG TABLET. PO SCH (22:43)
[2019-07-19] MEDS: ACETAMINOPHEN 325 MG TABLET. PO PRN (22:43)
[2019-07-19 23:46] VITALS: BP 153/70
[2019-07-20 03:30] VITALS: BP 121/57
[2019-07-20 06:11] LABS: HEMATOCRIT 25.1 % (36.0-47.0); HEMOGLOBIN 8.7 g/dL (12.0-15.5); RED BLOOD COUNT 2.49 x10^6/uL (3.50-5.40); RED CELL DISTRIBUTION WIDTH 13.3 % (11.5-14.5); WHITE BLOOD COUNT 12.2 x10^3/uL (4.0-11.0)
[2019-07-20] MEDS: LEVOTHYROXINE 100 MCG TABLET PO SCH (06:32)
[2019-07-20 07:39] VITALS: BP 133/62
[2019-07-20 07:59] LABS: CALCIUM 7.7 mg/dL (8.5-10.1); CREATININE 2.2 mg/dL (0.6-1.0); POTASSIUM 4.4 mmol/L (3.5-5.1)
[2019-07-20] MEDS: LACTOBACILLUS RHAMNOSUS GG 1 CAPSULE. PO SCH ×2 (08:44→21:39)
[2019-07-20] MEDS: LIDOCAINE (700MG/PATCH) PATCH. TD SCH (08:49)
[2019-07-20] MEDS: MEROPENEM 500 MG in IV NORMAL SALINE 50ML 50 ML IV SCH (08:50)
[2019-07-20 10:19] VITALS: BP 138/61
--- NOTE | 2019-07-20 11:07 | PN ---
DATE: 07/20/2019 SUBJECTIVE: The patient is resting, slightly propped up in bed, awake, alert, but somewhat confused. On questioning her, she continued to complain of dry mouth, stuffy nose, but otherwise has generally uneventful night. PHYSICAL EXAMINATION: GENERAL: When I examined her, she was pale, but no jaundice, cyanosis or thyromegaly. No jugular venous distension. No lower limb edema. VITAL SIGNS: Her heart rate was 84, blood pressure 121/57, temperature was 97.9, respiratory rate was 22 and oxygen saturation was 92% on 4 liters of oxygen. HEAD, EYES, EARS, NOSE AND THROAT: Showed normocephalic, atraumatic. NECK: Supple. CARDIAC: Normal first and second heart sounds. No gallop or murmur. CHEST: Clear to auscultation. No crepitation or rhonchi. ABDOMEN: Distended, soft, nontender. NEUROLOGIC: She was awake, alert, responding appropriately. All cranial nerves intact. She moves extremities without difficulty. She has an indwelling Kuo catheter. Her intake over the last 24 hours was 1370, output was 3390. LABORATORY DATA: Her lab work this morning showed a white cell count of 12,000, hemoglobin 8.7, hematocrit 25, MCV 101 and platelet count 255,000. Her chemistry is still pending at the time of this dictation. Her blood cultures are so far negative; however, her urine and blood culture done at [facility] showed growth of more than 100,000 colony forming units per mL of Escherichia coli sensitive to oral antibiotic. Her blood culture has grown again gram-negative rods identified as Escherichia coli sensitive to all antibiotics including all the penicillin, cephalosporins, aminoglycoside and quinolone. ASSESSMENT: 1. Acute kidney injury, multifactorial due to hydration as she has recurrent episodes of nausea, vomiting and diarrhea. She was also on meloxicam as well as losartan, both of which are discontinued. Her kidney function is steadily improving and her urine output is steadily rising. 2. Chronic hyponatremia, improving. Her most recent serum sodium has risen from 119-130, today's, labs are still pending. 3. Her TSH was normal and her morning cortisol was high at 57 excluding the possibility of hypothyroidism and/or Paul disease as cause of her chronic hyponatremia. 4. Other medical problems include: A. Hypertension. B. Leukopenia. C. Microcytosis followed by an oncologist at [facility]. 5. She has a short episode of atrial fibrillation with rapid ventricular response that has responded to a bolus of Cardizem and converted to normal sinus rhythm. PLAN: To continue with IV antibiotic and it showed that she needs the daptomycin given that she has grown Escherichia coli from both blood and urine culture, will continue with all other medication. Start the process of physical and occupational therapy. If her kidney function improved further, we will discontinue the Kuo catheter. GABRIEL REYES MD DR: ENRIQUE/[email or web address] JOB#: [id number] / [id number]
--- NOTE | 2019-07-20 11:10 | PDOC ---
SUBJECTIVE ROS Stable OBJECTIVE Vital Signs Vital Signs Date Time Temp Pulse Resp B/P (MAP) Pulse Ox O2 Delivery O2 Flow Rate FiO2 07/20/19 10:19 99.6 89 22 138/61 (86) 96 Nasal Cannula 4.0 99.6 I & 0 Intake and Output 07/20/19 07:00 Intake Total 1635 ml Output Total 4100 ml Balance -2465 ml Intake Oral 1500 ml Other 135 ml Output Urine Total 4100 ml PHYSICAL EXAM Physical Exam GENERAL: NAD HENT: Oral cavity moist Lungs- CTA , Non labored HEART: S1, S2. regular ABDOMEN: Soft, BS present : Kuo EXTREMITIES: Trace edema lower extremities bilaterally NEUROLOGIC: Alert, answers questions appropriately T DIAGNOSIS/ASSESSMENT Assessment & Plan Acute kidney injury, multifactorial, due to dehydration 2/2 nausea, vomiting, diarrhea Cr peaked at 4.1 improving to 2.2 She was also on meloxicam and losartan, both discontinued. CT scan Slight right pyelocaliectasis. No radiopaque collecting system calculus, No hydronephrosis No obstruction identified to involve the ureter. K and bicarb stable Supportive care, Avoid Nephrotoxins, Monitor for Polyuria Chronic hyponatremia, improving Serum sodium has risen up from 119 to 130. Hypertension. Macrocytosis history, followed by an oncologist at [facility]. atrial fibrillation with rapid ventricular response, treated with Cardizem bolus IV and converted to normal sinus rhythm. COMMENT/RELEVANT DATA Meds Current Medications Medications (Trade) Dose Ordered Sig/Saurabh Start Time Stop Time Status Last Admin Dose Admin Acetaminophen (Tylenol) 650 mg PRN Q4HRS PRN 07/15/19 10:45 07/19/19 22:43 650 MG Albuterol/ Ipratropium (Duoneb) 3 ml 1X ONCE 07/16/19 01:00 07/16/19 01:01 DC 07/16/19 00:59 3 ML Alprazolam (Xanax) 0.5 mg PRN Q6HRS PRN 07/15/19 21:45 07/19/19 08:57 0.5 MG Amlodipine Besylate (Norvasc) 10 mg 1X ONCE 07/19/19 22:30 07/19/19 22:31 DC 07/19/19 22:45 10 MG Daptomycin 390 mg/ Sodium Chloride 50 ml @ 100 mls/hr Q48H 07/15/19 14:00 07/16/19 08:27 DC 07/15/19 14:56 100 MLS/HR Digoxin (Lanoxin) 500 mcg STK-MED ONCE 07/19/19 10:33 07/19/19 10:33 DC Diltiazem HCl (Cardizem Iv Push) 25 mg STK-MED ONCE 07/19/19 06:43 07/19/19 06:43 DC Diltiazem HCl 125 mg/Dextrose 125 ml @ 5 mls/hr CONT PRN 07/19/19 07:00 07/19/19 09:18 5 MLS/HR Famotidine (Pepcid) 20 mg QHS 07/15/19 21:00 07/19/19 22:43 20 MG Furosemide (Lasix) 60 mg 1X ONCE 07/16/19 11:30 07/16/19 11:31 DC 07/16/19 11:40 60 MG Heparin Sodium (Porcine) (Hep Lock Adult) 2,800 unit Q12HR 07/16/19 21:00 07/17/19 15:35 DC Heparin Sodium (Porcine) (Heparin Sodium) 10,000 unit STK-MED ONCE 07/16/19 13:21 07/16/19 13:22 DC Heparin Sodium/ Sodium Chloride (HEPARIN for ARTERIAL LINE FLUSH) 1,000 unit 1X ONCE 07/16/19 13:45 07/16/19 13:46 DC Lactobacillus Rhamnosus (Culturelle) 1 cap BID 07/16/19 21:00 07/20/19 08:44 1 CAP Levothyroxine Sodium (Synthroid) 100 mcg DAILY06 07/15/19 06:00 07/20/19 06:32 100 MCG Lidocaine (Lidoderm) 1 patch DAILY 07/16/19 09:00 07/20/19 08:49 1 PATCH Lidocaine HCl (Buffered Lidocaine 1%) 3 ml 1X ONCE 07/16/19 13:45 07/16/19 13:46 DC 07/16/19 13:43 4 ML Linezolid/Dextrose 300 ml @ 300 mls/hr Q12HR 07/14/19 21:00 07/15/19 13:14 DC 07/15/19 09:23 300 MLS/HR Meropenem 500 mg/ Sodium Chloride 50 ml @ 100 mls/hr DAILY 07/17/19 09:00 07/20/19 08:50 100 MLS/HR Miscellaneous (Lidoderm Patch Removal) 1 ea QHS 07/16/19 21:00 07/18/19 20:47 1 EA Ondansetron HCl (Zofran) 4 mg PRN Q4HRS PRN 07/14/19 22:30 07/15/19 15:00 4 MG Piperacillin Sod/ Tazobactam Sod (Zosyn Per Pharmacy) 1 each PRN DAILY PRN 07/15/19 00:00 UNV Piperacillin Sod/ Tazobactam Sod 2.25 gm/Sodium Chloride 50 ml @ 100 mls/hr Q8HRS 07/14/19 22:00 07/17/19 08:40 DC 07/17/19 05:59 100 MLS/HR Potassium Chloride/Water 100 ml @ 100 mls/hr Q1H 07/16/19 11:30 07/16/19 14:29 DC 07/16/19 14:38 100 MLS/HR Saliva Substitute (Biotene Moisturizing Mouth) 2 spray PRN Q15MIN PRN 07/15/19 10:45 Sodium Bicarbonate 150 meq/Dextrose 1,150 ml @ 150 mls/hr Q7H40M 07/14/19 21:00 07/16/19 11:17 DC 07/16/19 00:46 150 MLS/HR Sodium Chloride 200 ml @ 50 mls/hr 1X ONCE 07/17/19 11:30 07/17/19 15:29 DC 07/17/19 11:26 50 MLS/HR Lab Laboratory Tests Test 07/20/19 05:00 White Blood Count 12.2 x10^3/uL (4.0-11.0) Red Blood Count 2.49 x10^6/uL (3.50-5.40) Hemoglobin 8.7 g/dL (12.0-15.5) Hematocrit 25.1 % (36.0-47.0) Mean Corpuscular Volume 101 fL (79-100) Mean Corpuscular Hemoglobin 35 pg (25-35) Mean Corpuscular Hemoglobin Concent 35 g/dL (31-37) Red Cell Distribution Width 13.3 % (11.5-14.5) Platelet Count 155 x10^3/uL (140-400) Sodium Level 130 mmol/L (136-145) Potassium Level 4.4 mmol/L (3.5-5.1) Chloride Level 96 mmol/L (98-107) Carbon Dioxide Level 24 mmol/L (21-32) Anion Gap 10 (6-14) Blood Urea Nitrogen 50 mg/dL (7-20) Creatinine 2.2 mg/dL (0.6-1.0) Estimated GFR (Cockcroft-Gault) 22.0 Glucose Level 96 mg/dL (70-99) Calcium Level 7.7 mg/dL (8.5-10.1) Results All relevant outside records, renal labs, imaging studies, telemetry/EKG's were reviewed. BENI DOMINGUEZ MD Jul 20, 2019 11:10
--- NOTE | 2019-07-20 11:30 | CARD ---
MR#: [id number] Date of Study: 07/20/2019 Ordering Physician: FINN DELGADO, Referring Physician: FINN DELGADO, Tech: Ruba Rodriguez JOLEEN APPROVED REPORT EXAM: Two-dimensional and M-mode echocardiogram with Doppler and color Doppler. Other Information Quality : Good INDICATION Atrial Fibrillation 2D DIMENSIONS RVDd3.1 (2.9-3.5cm)Left Atrium(2D)3.8 (1.6-4.0cm) IVSd1.3 (0.7-1.1cm)Aortic Root(2D)2.8 (2.0-3.7cm) LVDd4.0 (3.9-5.9cm)LVOT Diameter2.0 (1.8-2.4cm) PWd0.8 (0.7-1.1cm)LVDs2.9 (2.5-4.0cm) FS (%) 28.3 %SV39.6 ml LVEF(%)60.0 (>50%) Aortic Valve AoV Peak Frederic.160.2cm/sAoV VTI23.1cm AO Peak GR.10.3mmHgLVOT VTI 20.41cm AO Mean GR.5mmHgAVA (VTI)2.70cm2 Mitral Valve MV E Aqdgflcg08.8cm/sMV DECEL [id number] MV A Izzyziyy806.7cm/sE/A Ratio0.8 TDI Lateral E' P. V8.04cm/sMedial E' P. V6.50cm/s E/Lateral E'10.0E/Medial E'12.4 Tricuspid Valve TR P. Kslksvmw485pm/sRAP [id number] TR Peak Gr.84nqWlTYMY05emTi Pulmonary Vein S1 Ikqrkgif81.6cm/sS2 Wpiaaiwb04.53cm/s D2 Yfctngfx70.5cm/s LEFT VENTRICLE The left ventricle is normal size. There is mild asymmetric septal hypertrophy. The left ventricular systolic function is normal and the ejection fraction is within normal range. The Ejection Fraction i s 60-65%. There is normal LV segmental wall motion. Transmitral Doppler flow pattern is Grade I-abnor mal relaxation pattern. RIGHT VENTRICLE The right ventricle is normal size. The right ventricular systolic function is normal. ATRIA The left atrium size is normal. The right atrium size is normal. The interatrial septum is intact wit h no evidence for an atrial septal defect or patent foramen ovale as noted on 2-D or Doppler imaging. AORTIC VALVE The aortic valve is mildly thickened but opens well. Doppler and Color Flow revealed no significant a ortic regurgitation. There is no significant aortic valvular stenosis. MITRAL VALVE The mitral valve is calcified but opens well. There is no evidence of mitral valve prolapse. There is no mitral valve stenosis. Doppler and Color Flow revealed no mitral valve regurgitation noted. TRICUSPID VALVE The tricuspid valve is normal in structure and function. Doppler and Color Flow revealed trace to mil d tricuspid regurgitation. There is mild pulmonary hypertension. The PA pressure was estimated at 34 mmHg. There is no tricuspid valve stenosis. PULMONIC VALVE Doppler and Color Flow revealed trace to mild pulmonic valvular regurgitation. There is no pulmonic v alvular stenosis. GREAT VESSELS The aortic root is normal in size. The ascending aorta is normal in size. The IVC is normal in size a nd collapses >50% with inspiration. PERICARDIAL EFFUSION There is no evidence of significant pericardial effusion. Critical Notification Critical Value: No <Conclusion> The left ventricular systolic function is normal and the ejection fraction is within normal range. Th e Ejection Fraction is 60-65%. There is normal LV segmental wall motion. Doppler and Color Flow revealed trace to mild tricuspid regurgitation. There is mild pulmonary hypert ension. The PA pressure was estimated at 34 mmHg. Signed by : Jeremiah Mercado, Electronically Approved : 07/20/2019 11:30:20
--- NOTE | 2019-07-20 11:56 | NUR ---
SS following up with discharge planning. SS spoke with pt's son via phone and pt's son requested referral be phoned and faxed to [facility], ; fax [phone], for long-term unit. SS phoned and faxed referral to [facility]. SS will await acceptance decision and insurance determination and will proceed accordingly with discharge planning.
[2019-07-20] MEDS: ACETAMINOPHEN 325 MG TABLET. PO PRN ×2 (14:11→21:38)
[2019-07-20 14:42] VITALS: BP 148/65
--- NOTE | 2019-07-20 15:20 | PDOC ---
Infectious Disease Note Subjective Subjective Feeling better More rested Throat dry Supplemental O2 Denies N/V/D/F/C ROS ROS o/w neg Vital Sign Vital Signs Vital Signs Date Time Temp Pulse Resp B/P (MAP) Pulse Ox O2 Delivery O2 Flow Rate FiO2 07/20/19 14:42 98.2 98 22 148/65 (92) 95 Nasal Cannula 4.0 98.2 Physical Exam PHYSICAL EXAM GENERAL: In chair alert, appears comfortable HENT: Oral cavity dry, dentures in place LUNGS: Improved aeration HEART: S1, S2. regular ABDOMEN: Soft, BS present : Kuo EXTREMITIES: Trace edema lower extremities bilaterally NEUROLOGIC: Alert, answers questions appropriately Temp RIJ/HDC (07/16) without signs of complications Labs Lab Laboratory Tests Test 07/20/19 05:00 White Blood Count 12.2 x10^3/uL (4.0-11.0) Red Blood Count 2.49 x10^6/uL (3.50-5.40) Hemoglobin 8.7 g/dL (12.0-15.5) Hematocrit 25.1 % (36.0-47.0) Mean Corpuscular Volume 101 fL (79-100) Mean Corpuscular Hemoglobin 35 pg (25-35) Mean Corpuscular Hemoglobin Concent 35 g/dL (31-37) Red Cell Distribution Width 13.3 % (11.5-14.5) Platelet Count 155 x10^3/uL (140-400) Sodium Level 130 mmol/L (136-145) Potassium Level 4.4 mmol/L (3.5-5.1) Chloride Level 96 mmol/L (98-107) Carbon Dioxide Level 24 mmol/L (21-32) Anion Gap 10 (6-14) Blood Urea Nitrogen 50 mg/dL (7-20) Creatinine 2.2 mg/dL (0.6-1.0) Estimated GFR (Cockcroft-Gault) 22.0 Glucose Level 96 mg/dL (70-99) Calcium Level 7.7 mg/dL (8.5-10.1) Micro Microbiology 07/17/19 Blood Culture - Preliminary, Resulted NO GROWTH AFTER 3 DAYS Objective Assessment Sepsis from [facility] - Ecoli bacteremia 07/14 Urinary tract infection. UC E coli (pansensitive) Leukocytosis with bandemia. Acute kidney injury/acute tubular necrosis. Nausea, vomiting, and diarrhea, resolved. Severe hyponatremia with underlying history of chronic hyponatremia. Improving Abnormal liver function tests. Right pyelocaliectasis. Thrombocytopenia Ascites Plan Plan of Care D/c Merrem, renal dosing. Dose Rocephin in am Monitor labs/temp Continue supportive care. D/w nursing HELENA BELLO MD Jul 20, 2019 15:20
--- NOTE | 2019-07-20 16:04 | PDOC ---
CARDIO Progress Notes Date and Time Date of Service 07/20/19 Time of Evaluation 1600 Subjective Subjective: No Chest Pain, No shortness of breath, No Palpitations Vitals Vitals Vital Signs Date Time Temp Pulse Resp B/P (MAP) Pulse Ox O2 Delivery O2 Flow Rate FiO2 07/20/19 14:42 98.2 98 22 148/65 (92) 95 Nasal Cannula 4.0 98.2 Weight Weight [ ] Input and Output Intake and Output Intake and Output 07/20/19 07:00 Intake Total 1635 ml Output Total 4100 ml Balance -2465 ml Intake Oral 1500 ml Other 135 ml Output Urine Total 4100 ml Laboratory Labs Laboratory Tests Test 07/20/19 05:00 White Blood Count 12.2 x10^3/uL (4.0-11.0) Red Blood Count 2.49 x10^6/uL (3.50-5.40) Hemoglobin 8.7 g/dL (12.0-15.5) Hematocrit 25.1 % (36.0-47.0) Mean Corpuscular Volume 101 fL (79-100) Mean Corpuscular Hemoglobin 35 pg (25-35) Mean Corpuscular Hemoglobin Concent 35 g/dL (31-37) Red Cell Distribution Width 13.3 % (11.5-14.5) Platelet Count 155 x10^3/uL (140-400) Sodium Level 130 mmol/L (136-145) Potassium Level 4.4 mmol/L (3.5-5.1) Chloride Level 96 mmol/L (98-107) Carbon Dioxide Level 24 mmol/L (21-32) Anion Gap 10 (6-14) Blood Urea Nitrogen 50 mg/dL (7-20) Creatinine 2.2 mg/dL (0.6-1.0) Estimated GFR (Cockcroft-Gault) 22.0 Glucose Level 96 mg/dL (70-99) Calcium Level 7.7 mg/dL (8.5-10.1) Microbiology Micro Microbiology 07/17/19 Blood Culture - Preliminary, Resulted NO GROWTH AFTER 3 DAYS Review of Systems Constitutional: yes: weakness, alert, oriented Ears/Nose/Throat: Yes: no symptom reported Eyes: Yes: no symptom reported Pulmonary: Yes dyspnea Cardiovascular: Yes no symptom reported Gastrointestional: Yes: nausea, vomiting, diarrhea Genitourinary: Yes: no symptom reported Musculoskeletal: Yes: shoulder pain Skin: Yes no symptom reported Psychiatric/Neurological: Yes: no symptom reported Endocrine: Yes: no symptom reported Hematologic/Lymphatic: Yes: no symptom reported Physical Exam HEENT: Neck Supple W Full Motion Chest: Symmetric LUNGS: Clear to Auscultation Heart: S1S2, RRR (SR with PACs) Abdomen: Soft N/T Extremities: No Edema Neurology: alert, oriented, follow commands, Ext weakness Assessment Assessment 1. PAFIB. new in the setting of below. Rate controlled on Cardizem. Maintaining SR with PACs. Echo with preserved LV systolic function 2. UTI, sepsis, bacteremia. As per ID 3. Leukocytosis 4. LEONIDAS secondary to dehydration with GI loss. improving. 5. Hyponatremia; chronic 6. Elevated LFTs 7. Anemia, thrombocytopenia Recommendations Add low-dose BB for rate control TSH, lipids Poor cadidate for OAC with anemia, thrombocytopenia. Will add ASA for stroke prevention Plan for outpatient event monitor to note AFIB burden, guide therapy. NADINE VEGA APRN Jul 20, 2019 16:04
[2019-07-20 18:46] LABS: CHOLESTEROL/HDL RATIO 7.8
[2019-07-20 19:35] VITALS: BP 149/65
[2019-07-20] MEDS: PATCH REMOVAL. MC SCH (21:00)
[2019-07-20] MEDS: ASPIRIN ENTERIC COATED 81 MG TABLET.DR. PO SCH (21:38)
[2019-07-20] MEDS: FAMOTIDINE 20 MG TABLET. PO SCH (21:38)
[2019-07-20] MEDS: METOPROLOL TART IMMED RELEASE 25 MG TABLET. PO SCH (21:39)
[2019-07-20 22:34] VITALS: BP_SYST 135; BP_SYST 155; BP_DIAS 88; BP_DIAS 89
[2019-07-21 02:34] VITALS: BP 151/77
[2019-07-21 04:04] LABS: BASO % 0 % (0-3); EOS # 0.1 x10^3/uL (0.0-0.7); EOS % 1 % (0-3); HEMATOCRIT 26.8 % (36.0-47.0); HEMOGLOBIN 9.2 g/dL (12.0-15.5); LYMPH # 0.6 x10^3/uL (1.0-4.8); LYMPH % 4 % (24-48); MEAN CORPUSCULAR HEMOGLOBIN 35 pg (25-35); MEAN CORPUSCULAR HGB CONC 34 g/dL (31-37); MEAN CORPUSCULAR VOLUME 101 fL (79-100); MONO # 0.7 x10^3/uL (0.0-1.1); MONO % 5 % (0-9); NEUT # 11.9 x10^3/uL (1.8-7.7); NEUT % 89 % (31-73); PLATELET COUNT 249 x10^3/uL (140-400); RED BLOOD COUNT 2.64 x10^6/uL (3.50-5.40); RED CELL DISTRIBUTION WIDTH 13.3 % (11.5-14.5); WHITE BLOOD COUNT 13.3 x10^3/uL (4.0-11.0)
[2019-07-21 04:26] LABS: CALCIUM 8.3 mg/dL (8.5-10.1); CREATININE 1.6 mg/dL (0.6-1.0); GFR 31.8; POTASSIUM 4.2 mmol/L (3.5-5.1)
[2019-07-21] MEDS: LEVOTHYROXINE 100 MCG TABLET PO SCH (06:28)
--- NOTE | 2019-07-21 06:35 | NUR ---
jaswinder banuelos'ailin as per order, will cont to monitor. pmrn
[2019-07-21 07:00] VITALS: BP 152/72
--- NOTE | 2019-07-21 07:36 | PDOC ---
Infectious Disease Note Subjective Subjective Feeling better More rested - had a good nigh Throat less dry Denies N/V/D/F/C Chronic right shoulder pain - requires surgery ROS ROS o/w neg Vital Sign Vital Signs Vital Signs Date Time Temp Pulse Resp B/P (MAP) Pulse Ox O2 Delivery O2 Flow Rate FiO2 07/21/19 02:34 98.9 86 22 151/77 (101) 97 Nasal Cannula 4.0 98.9 Physical Exam PHYSICAL EXAM GENERAL: In bed, alert, appears comfortable HENT: Oral cavity dry, dentures in place LUNGS: Improved aeration HEART: S1, S2. regular ABDOMEN: Soft, BS present : Kuo - out EXTREMITIES: Trace edema lower extremities bilaterally NEUROLOGIC: Alert, answers questions appropriately Temp RIJ/HDC (07/16) without signs of complications Labs Lab Laboratory Tests Test 07/21/19 03:45 White Blood Count 13.3 x10^3/uL (4.0-11.0) Red Blood Count 2.64 x10^6/uL (3.50-5.40) Hemoglobin 9.2 g/dL (12.0-15.5) Hematocrit 26.8 % (36.0-47.0) Mean Corpuscular Volume 101 fL (79-100) Mean Corpuscular Hemoglobin 35 pg (25-35) Mean Corpuscular Hemoglobin Concent 34 g/dL (31-37) Red Cell Distribution Width 13.3 % (11.5-14.5) Platelet Count 249 x10^3/uL (140-400) Neutrophils (%) (Auto) 89 % (31-73) Lymphocytes (%) (Auto) 4 % (24-48) Monocytes (%) (Auto) 5 % (0-9) Eosinophils (%) (Auto) 1 % (0-3) Basophils (%) (Auto) 0 % (0-3) Neutrophils # (Auto) 11.9 x10^3/uL (1.8-7.7) Lymphocytes # (Auto) 0.6 x10^3/uL (1.0-4.8) Monocytes # (Auto) 0.7 x10^3/uL (0.0-1.1) Eosinophils # (Auto) 0.1 x10^3/uL (0.0-0.7) Basophils # (Auto) 0.0 x10^3/uL (0.0-0.2) Sodium Level 131 mmol/L (136-145) Potassium Level 4.2 mmol/L (3.5-5.1) Chloride Level 97 mmol/L (98-107) Carbon Dioxide Level 24 mmol/L (21-32) Anion Gap 10 (6-14) Blood Urea Nitrogen 41 mg/dL (7-20) Creatinine 1.6 mg/dL (0.6-1.0) Estimated GFR (Cockcroft-Gault) 31.8 Glucose Level 110 mg/dL (70-99) Calcium Level 8.3 mg/dL (8.5-10.1) Micro Microbiology 07/17/19 Blood Culture - Preliminary, Resulted NO GROWTH AFTER 3 DAYS Objective Assessment Sepsis from [facility] - Ecoli bacteremia 07/14 Urinary tract infection. UC E coli (pansensitive) Leukocytosis with bandemia.- mild increase but all parameters up. Has not dosed Rocephin yet - clinically looks better Acute kidney injury/acute tubular necrosis. Nausea, vomiting, and diarrhea, resolved. Severe hyponatremia with underlying history of chronic hyponatremia. Improving Abnormal liver function tests. Right pyelocaliectasis. Thrombocytopenia - better Ascites Plan Plan of Care TSH per Cardiology Dose Rocephin today Monitor labs CBc in am/temp Continue supportive care. D/w nursing HELENA BELLO MD Jul 21, 2019 07:36
[2019-07-21] MEDS ORDERED: cefTRIAXone IV Push 2 GM VIAL. IVP SCH (08:00)
--- NOTE | 2019-07-21 08:00 | PN ---
DATE: 07/21/2019 SUBJECTIVE: The patient is resting flat, sleeping comfortably, in no apparent distress. On questioning her, denied any complaint. The nursing staff did not voice any concern and stated that she had an uneventful night. PHYSICAL EXAMINATION: GENERAL: When I examined her, she looked pale, but no jaundice, cyanosis or thyromegaly. No jugular venous distention. No lower limb edema. VITAL SIGNS: Her heart rate was 86, blood pressure 151/77, temperature was 98.9, respiratory rate was 22 and oxygen saturation was 97% on 4 liters of oxygen. HEAD, EYES, EARS, NOSE AND THROAT: Showed normocephalic, atraumatic. NECK: Supple. HEART: Showed normal first and second heart sounds. No gallop, rub or murmur. CHEST: Clear to auscultation. No crepitation or rhonchi. ABDOMEN: Distended, soft, nontender. NEUROLOGIC: She was sleepy, but arousable. All cranial nerves intact. She moves extremities without difficulty. LABORATORY DATA: Her intake over the last 24 hours was 1635, output was 4100. As of this morning, her white cell count was 13,300, hemoglobin 9.2, hematocrit 26.8, MCV 101 and platelet count of 249,000. Her chemistry showed a serum sodium up to 131, potassium 4.2, chloride 97, bicarbonate 24, anion gap of 10, BUN 41, creatinine was 1.6, estimated GFR was 32 mL per minute. Her glucose 110, calcium was 8.3. Her serum triglycerides 112, total cholesterol 140, LDL was 100, VLDL was 22, HDL cholesterol 18, and the ratio was 7.8. Her TSH was 5.2. ASSESSMENT: 1. Acute kidney injury, multifactorial due to dehydration. She has recurrent episode of nausea, vomiting and diarrhea. She was also on meloxicam as well as losartan, both of which were discontinued. Her kidney functions are steadily improving, in fact her creatinine is down to 1.6. 2. Chronic hyponatremia, improving. Her most recent serum sodium has risen up to 131 mEq per liter. 3. Her TSH was normal and her morning cortisol was high at 57 excluding the possibility of hypothyroidism and/or Devol disease as cause of her chronic hyponatremia. 4. Other medical problems include: A. Hypertension. B. Leukopenia. C. Macrocytosis followed by an oncologist at [facility]. 5. She has short episode of atrial fibrillation with rapid ventricular response, treated with a bolus of Cardizem and converted to normal sinus rhythm. PLAN: To continue with IV Rocephin for Escherichia coli bacteremia and urinary tract infection. I will continue with metoprolol for her hypertension and for her atrial fibrillation with rapid ventricular response, continue with amlodipine to control blood pressure. Continue with levothyroxine. I will discontinue her Kuo catheter. We will consult Physical and Occupational Therapy. GABRIEL REYES MD DR: ENRIQUE/jennyfer JOB#: [id number] / [id number]
[2019-07-21] MEDS: ALPRAZolam 0.5 MG TABLET PO PRN ×2 (08:29→19:47)
[2019-07-21] MEDS: ACETAMINOPHEN 325 MG TABLET. PO PRN ×2 (08:29→18:02)
[2019-07-21] MEDS: METOPROLOL TART IMMED RELEASE 25 MG TABLET. PO SCH ×2 (08:30→19:47)
[2019-07-21] MEDS: amLODIPine BESYLATE 10 MG TABLET PO SCH (08:30)
[2019-07-21] MEDS: ASPIRIN ENTERIC COATED 81 MG TABLET.DR. PO SCH (08:30)
[2019-07-21] MEDS: LACTOBACILLUS RHAMNOSUS GG 1 CAPSULE. PO SCH ×2 (08:32→19:47)
[2019-07-21] MEDS: LIDOCAINE (700MG/PATCH) PATCH. TD SCH ×2 (08:33→09:00)
--- NOTE | 2019-07-21 09:19 | PDOC ---
SUBJECTIVE Subjective S: doing good, in chair, waiting for therapy O: Physical exam: Gen.: elderly female, resting in chair, in good spirits Lungs: Breathing comfortably Psychiatric: Pleasant mood and affect Labs: White count 13, hemoglobin 9.2, platelets 249 Assessment and Plan: A/P: 69 yo female w/ h/o macrocytosis and low blood counts, being treated for UTI with gram-negative [facility] bacteremia from [facility], improving nicely UTI/GNR bacteremia: abx, per ID pancytopenia: s/p BMBx before about 5 yrs ago, improving w/ tx of infection hypothyroid: on replacement n/v: zofran prn LEONIDAS/hypoNa: per nephro dispo: per others, she can f/u w/ Dr Escobedo as an outpt prn Thank you kindly and please do not hesitate to call with questions. OBJECTIVE Vital Signs Vital Signs Date Time Temp Pulse Resp B/P (MAP) Pulse Ox O2 Delivery O2 Flow Rate FiO2 07/21/19 08:30 99 152/72 07/21/19 08:30 99 152/72 07/21/19 07:00 98.3 99 18 152/72 (98) 93 2.0 98.3 07/21/19 02:34 98.9 86 22 151/77 (101) 97 Nasal Cannula 4.0 98.9 07/20/19 22:34 98.7 80 20 155/89 (111) 96 Nasal Cannula 4.0 98.7 07/20/19 21:39 109 149/65 07/20/19 19:40 Nasal Cannula 3.0 07/20/19 19:35 98.1 97 22 149/65 (93) 96 Nasal Cannula 4.0 98.1 07/20/19 14:42 98.2 98 22 148/65 (92) 95 Nasal Cannula 4.0 98.2 07/20/19 10:19 99.6 89 22 138/61 (86) 96 Nasal Cannula 4.0 99.6 I & O Intake and Output 07/21/19 07:00 Intake Total 1700 ml Output Total 4975 ml Balance -3275 ml Intake Oral 1650 ml IV Total 50 ml Output Urine Total 4975 ml # Bowel Movements 3 COMMENT Lab Laboratory Tests Test 07/21/19 03:45 White Blood Count 13.3 x10^3/uL (4.0-11.0) Red Blood Count 2.64 x10^6/uL (3.50-5.40) Hemoglobin 9.2 g/dL (12.0-15.5) Hematocrit 26.8 % (36.0-47.0) Mean Corpuscular Volume 101 fL (79-100) Mean Corpuscular Hemoglobin 35 pg (25-35) Mean Corpuscular Hemoglobin Concent 34 g/dL (31-37) Red Cell Distribution Width 13.3 % (11.5-14.5) Platelet Count 249 x10^3/uL (140-400) Neutrophils (%) (Auto) 89 % (31-73) Lymphocytes (%) (Auto) 4 % (24-48) Monocytes (%) (Auto) 5 % (0-9) Eosinophils (%) (Auto) 1 % (0-3) Basophils (%) (Auto) 0 % (0-3) Neutrophils # (Auto) 11.9 x10^3/uL (1.8-7.7) Lymphocytes # (Auto) 0.6 x10^3/uL (1.0-4.8) Monocytes # (Auto) 0.7 x10^3/uL (0.0-1.1) Eosinophils # (Auto) 0.1 x10^3/uL (0.0-0.7) Basophils # (Auto) 0.0 x10^3/uL (0.0-0.2) Sodium Level 131 mmol/L (136-145) Potassium Level 4.2 mmol/L (3.5-5.1) Chloride Level 97 mmol/L (98-107) Carbon Dioxide Level 24 mmol/L (21-32) Anion Gap 10 (6-14) Blood Urea Nitrogen 41 mg/dL (7-20) Creatinine 1.6 mg/dL (0.6-1.0) Estimated GFR (Cockcroft-Gault) 31.8 Glucose Level 110 mg/dL (70-99) Calcium Level 8.3 mg/dL (8.5-10.1) LORRIE AUGUSTINE MD Jul 21, 2019 09:19
--- NOTE | 2019-07-21 10:23 | PDOC ---
SUBJECTIVE ROS Stable OBJECTIVE Vital Signs Vital Signs Date Time Temp Pulse Resp B/P (MAP) Pulse Ox O2 Delivery O2 Flow Rate FiO2 07/21/19 08:30 99 152/72 07/21/19 07:00 98.3 18 93 2.0 98.3 07/21/19 02:34 Nasal Cannula I & 0 Intake and Output 07/21/19 07:00 Intake Total 1700 ml Output Total 4975 ml Balance -3275 ml Intake Oral 1650 ml IV Total 50 ml Output Urine Total 4975 ml # Bowel Movements 3 PHYSICAL EXAM Physical Exam GENERAL: NAD HENT: Oral cavity moist Lungs- CTA , Non labored HEART: S1, S2. regular ABDOMEN: Soft, BS present : Kuo EXTREMITIES: Trace edema lower extremities bilaterally NEUROLOGIC: Alert, answers questions appropriately T DIAGNOSIS/ASSESSMENT Assessment & Plan Acute kidney injury, multifactorial, due to dehydration 2/2 nausea, vomiting, diarrhea Cr peaked at 4.1 improving to 1.6 meloxicam and losartan d[address] CT scan Slight right pyelocaliectasis. No radiopaque collecting system calculus, No hydronephrosis No obstruction identified to involve the ureter. K and bicarb stable Supportive care, Avoid Nephrotoxins, Monitor for Polyuria Chronic hyponatremia, improving Serum sodium has risen up from 119 to 131. Hypertension- Macrocytosis history, followed by an oncologist at [facility]. atrial fibrillation with rapid ventricular response, treated with Cardizem bolus IV and converted to normal sinus rhythm. COMMENT/RELEVANT DATA Meds Current Medications Medications (Trade) Dose Ordered Sig/Saurabh Start Time Stop Time Status Last Admin Dose Admin Acetaminophen (Tylenol) 650 mg PRN Q4HRS PRN 07/15/19 10:45 07/21/19 08:29 650 MG Albuterol/ Ipratropium (Duoneb) 3 ml 1X ONCE 07/16/19 01:00 07/16/19 01:01 DC 07/16/19 00:59 3 ML Alprazolam (Xanax) 0.5 mg PRN Q6HRS PRN 07/15/19 21:45 07/21/19 08:29 0.5 MG Amlodipine Besylate (Norvasc) 10 mg 1X ONCE 07/19/19 22:30 07/19/19 22:31 DC 07/19/19 22:45 10 MG Aspirin (Ecotrin) 81 mg DAILYWBKFT 07/20/19 18:30 07/21/19 08:30 81 MG Ceftriaxone Sodium (Rocephin) 2 gm Q24H 07/21/19 08:00 07/21/19 08:25 2 GM Daptomycin 390 mg/ Sodium Chloride 50 ml @ 100 mls/hr Q48H 07/15/19 14:00 07/16/19 08:27 DC 07/15/19 14:56 100 MLS/HR Digoxin (Lanoxin) 500 mcg STK-MED ONCE 07/19/19 10:33 07/19/19 10:33 DC Diltiazem HCl (Cardizem Iv Push) 25 mg STK-MED ONCE 07/19/19 06:43 07/19/19 06:43 DC Diltiazem HCl 125 mg/Dextrose 125 ml @ 5 mls/hr CONT PRN 07/19/19 07:00 07/19/19 09:18 5 MLS/HR Famotidine (Pepcid) 20 mg QHS 07/15/19 21:00 07/20/19 21:38 20 MG Furosemide (Lasix) 60 mg 1X ONCE 07/16/19 11:30 07/16/19 11:31 DC 07/16/19 11:40 60 MG Heparin Sodium (Porcine) (Hep Lock Adult) 2,800 unit Q12HR 07/16/19 21:00 07/17/19 15:35 DC Heparin Sodium (Porcine) (Heparin Sodium) 10,000 unit STK-MED ONCE 07/16/19 13:21 07/16/19 13:22 DC Heparin Sodium/ Sodium Chloride (HEPARIN for ARTERIAL LINE FLUSH) 1,000 unit 1X ONCE 07/16/19 13:45 07/16/19 13:46 DC Lactobacillus Rhamnosus (Culturelle) 1 cap BID 07/16/19 21:00 07/21/19 08:32 1 CAP Levothyroxine Sodium (Synthroid) 100 mcg DAILY06 07/15/19 06:00 07/21/19 06:28 100 MCG Lidocaine (Lidoderm) 1 patch DAILY 07/16/19 09:00 07/21/19 08:33 1 PATCH Lidocaine HCl (Buffered Lidocaine 1%) 3 ml 1X ONCE 07/16/19 13:45 07/16/19 13:46 DC 07/16/19 13:43 4 ML Linezolid/Dextrose 300 ml @ 300 mls/hr Q12HR 07/14/19 21:00 07/15/19 13:14 DC 07/15/19 09:23 300 MLS/HR Meropenem 500 mg/ Sodium Chloride 50 ml @ 100 mls/hr DAILY 07/17/19 09:00 07/20/19 15:32 DC 07/20/19 08:50 100 MLS/HR Metoprolol Tartrate (Lopressor) 25 mg BID 07/20/19 21:00 07/21/19 08:30 25 MG Miscellaneous (Lidoderm Patch Removal) 1 ea QHS 07/16/19 21:00 07/18/19 20:47 1 EA Ondansetron HCl (Zofran) 4 mg PRN Q4HRS PRN 07/14/19 22:30 07/15/19 15:00 4 MG Piperacillin Sod/ Tazobactam Sod (Zosyn Per Pharmacy) 1 each PRN DAILY PRN 07/15/19 00:00 UNV Piperacillin Sod/ Tazobactam Sod 2.25 gm/Sodium Chloride 50 ml @ 100 mls/hr Q8HRS 07/14/19 22:00 07/17/19 08:40 DC 07/17/19 05:59 100 MLS/HR Potassium Chloride/Water 100 ml @ 100 mls/hr Q1H 07/16/19 11:30 07/16/19 14:29 DC 07/16/19 14:38 100 MLS/HR Saliva Substitute (Biotene Moisturizing Mouth) 2 spray PRN Q15MIN PRN 07/15/19 10:45 Sodium Bicarbonate 150 meq/Dextrose 1,150 ml @ 150 mls/hr Q7H40M 07/14/19 21:00 07/16/19 11:17 DC 07/16/19 00:46 150 MLS/HR Sodium Chloride 200 ml @ 50 mls/hr 1X ONCE 07/17/19 11:30 07/17/19 15:29 DC 07/17/19 11:26 50 MLS/HR Lab Laboratory Tests Test 07/21/19 03:45 White Blood Count 13.3 x10^3/uL (4.0-11.0) Red Blood Count 2.64 x10^6/uL (3.50-5.40) Hemoglobin 9.2 g/dL (12.0-15.5) Hematocrit 26.8 % (36.0-47.0) Mean Corpuscular Volume 101 fL (79-100) Mean Corpuscular Hemoglobin 35 pg (25-35) Mean Corpuscular Hemoglobin Concent 34 g/dL (31-37) Red Cell Distribution Width 13.3 % (11.5-14.5) Platelet Count 249 x10^3/uL (140-400) Neutrophils (%) (Auto) 89 % (31-73) Lymphocytes (%) (Auto) 4 % (24-48) Monocytes (%) (Auto) 5 % (0-9) Eosinophils (%) (Auto) 1 % (0-3) Basophils (%) (Auto) 0 % (0-3) Neutrophils # (Auto) 11.9 x10^3/uL (1.8-7.7) Lymphocytes # (Auto) 0.6 x10^3/uL (1.0-4.8) Monocytes # (Auto) 0.7 x10^3/uL (0.0-1.1) Eosinophils # (Auto) 0.1 x10^3/uL (0.0-0.7) Basophils # (Auto) 0.0 x10^3/uL (0.0-0.2) Sodium Level 131 mmol/L (136-145) Potassium Level 4.2 mmol/L (3.5-5.1) Chloride Level 97 mmol/L (98-107) Carbon Dioxide Level 24 mmol/L (21-32) Anion Gap 10 (6-14) Blood Urea Nitrogen 41 mg/dL (7-20) Creatinine 1.6 mg/dL (0.6-1.0) Estimated GFR (Cockcroft-Gault) 31.8 Glucose Level 110 mg/dL (70-99) Calcium Level 8.3 mg/dL (8.5-10.1) Results All relevant outside records, renal labs, imaging studies, telemetry/EKG's were reviewed. BENI DOMINGUEZ MD Jul 21, 2019 10:23
[2019-07-21 11:00] VITALS: BP 120/56
--- NOTE | 2019-07-21 11:42 | NUR ---
SS following up with discharge planning. Pt accepted at [facility], ; fax [phone], pending insurance authorization. SS will continue to follow for discharge planning.
[2019-07-21] MEDS: traMADol 50 MG TABLET PO PRN (12:50)
[2019-07-21 15:11] VITALS: BP 130/63
--- NOTE | 2019-07-21 18:16 | PDOC ---
PROGRESS NOTES Subjective Subjective Patient seen and examined Objective Objective Vital Signs Date Time Temp Pulse Resp B/P (MAP) Pulse Ox O2 Delivery O2 Flow Rate FiO2 07/21/19 15:11 97.6 81 18 130/63 (85) 96 Room Air 97.6 07/21/19 12:50 3.0 Intake and Output 07/21/19 07:00 Intake Total 2700 ml Output Total 4975 ml Balance -2275 ml Intake Oral 2650 ml IV Total 50 ml Output Urine Total 4975 ml # Voids 1 # Bowel Movements 4 Physical Exam Abdomen: Normal bowel sounds Heart: Regular rate General: mild distress Lungs: Other (slightly decreased breath sounds) Assessment Assessment 1. PAFIB. new in the setting of below. Now maintaining SR with PACs. Echo with preserved LV systolic function. Continue present treatment. 2. UTI, sepsis, bacteremia. As per ID 3. Leukocytosis 4. LEONIDAS secondary to dehydration with GI loss. improving. 5. Hyponatremia; chronic 6. Elevated LFTs 7. Anemia, thrombocytopenia Comment Review of Relevant I have reviewed the following items logan (where applicable) has been applied. Labs Laboratory Tests Test 07/20/19 05:00 07/21/19 03:45 White Blood Count 12.2 x10^3/uL (4.0-11.0) 13.3 x10^3/uL (4.0-11.0) Red Blood Count 2.49 x10^6/uL (3.50-5.40) 2.64 x10^6/uL (3.50-5.40) Hemoglobin 8.7 g/dL (12.0-15.5) 9.2 g/dL (12.0-15.5) Hematocrit 25.1 % (36.0-47.0) 26.8 % (36.0-47.0) Mean Corpuscular Volume 101 fL (79-100) 101 fL (79-100) Mean Corpuscular Hemoglobin 35 pg (25-35) 35 pg (25-35) Mean Corpuscular Hemoglobin Concent 35 g/dL (31-37) 34 g/dL (31-37) Red Cell Distribution Width 13.3 % (11.5-14.5) 13.3 % (11.5-14.5) Platelet Count 155 x10^3/uL (140-400) 249 x10^3/uL (140-400) Sodium Level 130 mmol/L (136-145) 131 mmol/L (136-145) Potassium Level 4.4 mmol/L (3.5-5.1) 4.2 mmol/L (3.5-5.1) Chloride Level 96 mmol/L (98-107) 97 mmol/L (98-107) Carbon Dioxide Level 24 mmol/L (21-32) 24 mmol/L (21-32) Anion Gap 10 (6-14) 10 (6-14) Blood Urea Nitrogen 50 mg/dL (7-20) 41 mg/dL (7-20) Creatinine 2.2 mg/dL (0.6-1.0) 1.6 mg/dL (0.6-1.0) Estimated GFR (Cockcroft-Gault) 22.0 31.8 Glucose Level 96 mg/dL (70-99) 110 mg/dL (70-99) Calcium Level 7.7 mg/dL (8.5-10.1) 8.3 mg/dL (8.5-10.1) Triglycerides Level 112 mg/dL (0-150) Cholesterol Level 140 mg/dL (0-200) LDL Cholesterol, Calculated 100 mg/dL (0-100) VLDL Cholesterol, Calculated 22 mg/dL (0-40) Non-HDL Cholesterol Calculated 122 mg/dL (0-129) HDL Cholesterol 18 mg/dL (40-60) Cholesterol/HDL Ratio 7.8 Thyroid Stimulating Hormone (TSH) 5.200 uIU/mL (0.358-3.74) Neutrophils (%) (Auto) 89 % (31-73) Lymphocytes (%) (Auto) 4 % (24-48) Monocytes (%) (Auto) 5 % (0-9) Eosinophils (%) (Auto) 1 % (0-3) Basophils (%) (Auto) 0 % (0-3) Neutrophils # (Auto) 11.9 x10^3/uL (1.8-7.7) Lymphocytes # (Auto) 0.6 x10^3/uL (1.0-4.8) Monocytes # (Auto) 0.7 x10^3/uL (0.0-1.1) Eosinophils # (Auto) 0.1 x10^3/uL (0.0-0.7) Basophils # (Auto) 0.0 x10^3/uL (0.0-0.2) Laboratory Tests Test 07/21/19 03:45 White Blood Count 13.3 x10^3/uL (4.0-11.0) Red Blood Count 2.64 x10^6/uL (3.50-5.40) Hemoglobin 9.2 g/dL (12.0-15.5) Hematocrit 26.8 % (36.0-47.0) Mean Corpuscular Volume 101 fL (79-100) Mean Corpuscular Hemoglobin 35 pg (25-35) Mean Corpuscular Hemoglobin Concent 34 g/dL (31-37) Red Cell Distribution Width 13.3 % (11.5-14.5) Platelet Count 249 x10^3/uL (140-400) Neutrophils (%) (Auto) 89 % (31-73) Lymphocytes (%) (Auto) 4 % (24-48) Monocytes (%) (Auto) 5 % (0-9) Eosinophils (%) (Auto) 1 % (0-3) Basophils (%) (Auto) 0 % (0-3) Neutrophils # (Auto) 11.9 x10^3/uL (1.8-7.7) Lymphocytes # (Auto) 0.6 x10^3/uL (1.0-4.8) Monocytes # (Auto) 0.7 x10^3/uL (0.0-1.1) Eosinophils # (Auto) 0.1 x10^3/uL (0.0-0.7) Basophils # (Auto) 0.0 x10^3/uL (0.0-0.2) Sodium Level 131 mmol/L (136-145) Potassium Level 4.2 mmol/L (3.5-5.1) Chloride Level 97 mmol/L (98-107) Carbon Dioxide Level 24 mmol/L (21-32) Anion Gap 10 (6-14) Blood Urea Nitrogen 41 mg/dL (7-20) Creatinine 1.6 mg/dL (0.6-1.0) Estimated GFR (Cockcroft-Gault) 31.8 Glucose Level 110 mg/dL (70-99) Calcium Level 8.3 mg/dL (8.5-10.1) Microbiology 07/17/19 Blood Culture - Preliminary, Resulted NO GROWTH AFTER 4 DAYS Medications Current Medications Piperacillin Sod/ Tazobactam Sod (Zosyn Per Pharmacy) 1 each PRN DAILY PRN MC SEE COMMENTS; Start 07/14/19 at 20:00; Stop 07/17/19 at 16:09; Status DC Linezolid/Dextrose 300 ml @ 300 mls/hr Q12HR IV Last administered on 07/15/19at 09:23; Start 07/14/19 at 21:00; Stop 07/15/19 at 13:14; Status DC Piperacillin Sod/ Tazobactam Sod (Zosyn Per Pharmacy) 1 each PRN DAILY PRN MC SEE COMMENTS; Start 07/15/19 at 00:00; Status UNV Piperacillin Sod/ Tazobactam Sod 2.25 gm/Sodium Chloride 50 ml @ 100 mls/hr Q8HRS IV Last administered on 07/17/19at 05:59; Start 07/14/19 at 22:00; Stop 07/17/19 at 08:40; Status DC Sodium Bicarbonate 150 meq/Dextrose 1,150 ml @ 150 mls/hr Q7H40M IV Last administered on 07/16/19at 00:46; Start 07/14/19 at 21:00; Stop 07/16/19 at 11:17; Status DC Famotidine (Pepcid) 20 mg QHS PO ; Start 07/14/19 at 23:00; Stop 07/14/19 at 23:02; Status DC Levothyroxine Sodium (Synthroid) 300 mcg DAILY06 PO ; Start 07/15/19 at 06:00; Status Cancel Ondansetron HCl (Zofran) 4 mg PRN Q4HRS PRN IVP NAUSEA/VOMITING 1ST CHOICE Last administered on 07/15/19at 15:00; Start 07/14/19 at 22:30 Amlodipine Besylate (Norvasc) 10 mg DAILY PO Last administered on 07/21/19at 08:30; Start 07/15/19 at 09:00 Famotidine (Pepcid) 20 mg QHS PO Last administered on 07/20/19at 21:38; Start 07/15/19 at 21:00 Levothyroxine Sodium (Synthroid) 100 mcg DAILY06 PO Last administered on 07/21/19at 06:28; Start 07/15/19 at 06:00 Sodium Chloride 200 ml @ 50 mls/hr 1X ONCE IV Last administered on 07/15/19 10:36; Start 07/15/19 at 10:15; Stop 07/15/19 at 14:14; Status DC Acetaminophen (Tylenol) 650 mg PRN Q4HRS PRN PO HEADACHE Last administered on 07/21/19 18:02; Start 07/15/19 at 10:45 Saliva Substitute (Biotene Moisturizing Mouth) 2 spray PRN Q15MIN PRN PO DRY MOUTH; Start 07/15/19 at 10:45 Daptomycin 390 mg/ Sodium Chloride 50 ml @ 100 mls/hr Q48H IV Last administere d on 07/15/19 14:56; Start 07/15/19 at 14:00; Stop 07/16/19 at 08:27; Status DC Alprazolam (Xanax) 0.5 mg PRN Q6HRS PRN PO ANXIETY / AGITATION Last administered on 07/21/19 08:29; Start 07/15/19 at 21:45 Albuterol/ Ipratropium (Duoneb) 3 ml 1X ONCE NEB Last administered on 07/16/19 00:59; Start 07/16/19 at 01:00; Stop 07/16/19 at 01:01; Status DC Lidocaine (Lidoderm) 1 patch DAILY TD Last administered on 07/21/19 08:33; Start 07/16/19 at 09:00 Miscellaneous (Lidoderm Patch Removal) 1 ea QHS MC Last administered on 07/18/19at 20:47; Start 07/16/19 at 21:00 Furosemide (Lasix) 60 mg 1X ONCE IVP Last administered on 07/16/19at 11:40; Start 07/16/19 at 11:30; Stop 07/16/19 at 11:31; Status DC Potassium Chloride/Water 100 ml @ 100 mls/hr Q1H IV Last administered on 07/16/19at 14:38; Start 07/16/19 at 11:30; Stop 07/16/19 at 14:29; Status DC Lidocaine HCl (Buffered Lidocaine 1%) 3 ml STK-MED ONCE .ROUTE ; Start 07/16/19 at 13:18; Stop 07/16/19 at 13:18; Status DC Heparin Sodium (Porcine) (Hep Lock Adult) 500 unit STK-MED ONCE .ROUTE ; Start 07/16/19 at 13:20; Stop 07/16/19 at 13:21; Status DC Heparin Sodium (Porcine) (Heparin Sodium) 10,000 unit STK-MED ONCE .ROUTE ; Start 07/16/19 at 13:21; Stop 07/16/19 at 13:22; Status DC Lidocaine HCl (Buffered Lidocaine 1%) 3 ml 1X ONCE INJ Last administered on 07/16/19at 13:43; Start 07/16/19 at 13:45; Stop 07/16/19 at 13:46; Status DC Heparin Sodium/ Sodium Chloride (HEPARIN for ARTERIAL LINE FLUSH) 1,000 unit 1X ONCE IV ; Start 07/16/19 at 13:45; Stop 07/16/19 at 13:46; Status DC Heparin Sodium (Porcine) (Hep Lock Adult) 2,800 unit Q12HR IVP ; Start 07/16/19 at 21:00; Stop 07/17/19 at 15:35; Status DC Sodium Chloride 250 ml @ 41.6 mls/hr 1X ONCE IV Last administered on at 14:38; Start 07/16/19 at 14:30; Stop 07/16/19 at 20:30; Status DC Lactobacillus Rhamnosus (Culturelle) 1 cap BID PO Last administered on 07/21/19at 08:32; Start 07/16/19 at 21:00 Meropenem 500 mg/ Sodium Chloride 50 ml @ 100 mls/hr DAILY IV Last administered on 07/20/19at 08:50; Start 07/17/19 at 09:00; Stop 07/20/19 at 15:32; Status DC Sodium Chloride 200 ml @ 50 mls/hr 1X ONCE IV Last administered on 07/17/19at 11:26; Start 07/17/19 at 11:30; Stop 07/17/19 at 15:29; Status DC Diltiazem HCl (Cardizem Iv Push) 10 mg 1X ONCE IVP Last administered on 07/19/19at 10:04; Start 07/19/19 at 06:45; Stop 07/19/19 at 06:46; Status DC Diltiazem HCl 125 mg/Dextrose 125 ml @ 5 mls/hr CONT PRN IV SEE I/O RECORD Last administered on 07/19/19at 09:18; Start 07/19/19 at 07:00 Diltiazem HCl (Cardizem Iv Push) 25 mg STK-MED ONCE .ROUTE ; Start 07/19/19 at 06:43; Stop 07/19/19 at 06:43; Status DC Digoxin (Lanoxin) 250 mcg 1X ONCE IV Last administered on 07/19/19at 10:36; Start 07/19/19 at 10:45; Stop 07/19/19 at 10:46; Status DC Digoxin (Lanoxin) 500 mcg STK-MED ONCE .ROUTE ; Start 07/19/19 at 10:33; Stop 07/19/19 at 10:33; Status DC Amlodipine Besylate (Norvasc) 10 mg 1X ONCE PO Last administered on 07/19/19at 22:45; Start 07/19/19 at 22:30; Stop 07/19/19 at 22:31; Status DC Ceftriaxone Sodium (Rocephin) 2 gm Q24H IVP Last administered on 07/21/19at 08:25; Start 07/21/19 at 08:00 Aspirin (Ecotrin) 81 mg DAILYWBKFT PO Last administered on 07/21/19 08:30; Start 07/20/19 at 18:30 Metoprolol Tartrate (Lopressor) 25 mg BID PO Last administered on 07/21/19at 08:30; Start 07/20/19 at 21:00 Tramadol HCl (Ultram) 50 mg PRN Q6HRS PRN PO PAIN Last administered on 07/21/19at 12:50; Start 07/21/19 at 10:45 Active Scripts Active Reported Chlorpheniramine Maleate 4 Mg Tablet 1 Tab PO Q4HRS 3 Days Synthroid (Levothyroxine Sodium) 100 Mcg Tablet 1 Tab PO DAILY Ranitidine Hcl 150 Mg Capsule 150 Mg PO DAILY Tramadol Hcl 50 Mg Tablet 50 Mg PO Q4HRS PRN Meloxicam 7.5 Mg Tablet 1 Tab PO DAILY 30 Days Losartan Potassium 100 Mg Tablet 100 Mg PO DAILY Amlodipine Besylate 10 Mg Tablet 10 Mg PO DAILY Vitals/I & O Vital Sign - Last 24 Hours 11/18/19 11/18/19 11/18/19 11/18/19 19:35 19:40 21:39 22:34 Temp 98.1 98.7 98.1 98.7 Pulse 97 109 80 Resp 20 B/P (MAP) 149/65 (93) 149/65 155/89 (111) Pulse Ox 96 96 O2 Delivery Nasal Cannula Nasal Cannula Nasal Cannula O2 Flow Rate 4.0 3.0 4.0 07/21/19 07/21/19 07/21/19 07/21/19 02:34 07:00 08:00 08:30 Temp 98.9 98.3 98.9 98.3 Pulse 86 99 99 Resp 18 B/P (MAP) 151/77 (101) 152/72 (98) 152/72 Pulse Ox 97 93 O2 Delivery Nasal Cannula Nasal Cannula O2 Flow Rate 4.0 2.0 3.0 07/21/19 07/21/19 07/21/19 07/21/19 08:30 11:00 12:50 15:11 Temp 97.9 97.6 97.9 97.6 Pulse 99 79 81 Resp 18 B/P (MAP) 152/72 120/56 (77) 130/63 (85) Pulse Ox 97 96 O2 Delivery Nasal Cannula Room Air O2 Flow Rate 3.0 3.0 Intake and Output 07/20/19 07/20/19 07/21/19 15:00 23:00 07:00 Intake Total 720 ml 50 ml 1930 ml Output Total 1750 ml 3225 ml Balance 720 ml -1700 ml -1295 ml FINN DELGADO MD Jul 21, 2019 18:16
[2019-07-21 19:00] VITALS: BP 129/60
[2019-07-21] MEDS: PATCH REMOVAL. MC SCH (19:48)
[2019-07-21] MEDS: FAMOTIDINE 20 MG TABLET. PO SCH (19:48)
[2019-07-21 23:00] VITALS: BP 114/58
[2019-07-22 03:00] VITALS: BP 146/63
[2019-07-22] MEDS: LEVOTHYROXINE 100 MCG TABLET PO SCH (05:45)
[2019-07-22 06:06] LABS: BASO # 0.1 x10^3/uL (0.0-0.2); BASO % 1 % (0-3); EOS # 0.1 x10^3/uL (0.0-0.7); EOS % 1 % (0-3); HEMATOCRIT 25.7 % (36.0-47.0); HEMOGLOBIN 8.8 g/dL (12.0-15.5); LYMPH # 0.5 x10^3/uL (1.0-4.8); LYMPH % 3 % (24-48); MEAN CORPUSCULAR HEMOGLOBIN 35 pg (25-35); MEAN CORPUSCULAR HGB CONC 34 g/dL (31-37); MEAN CORPUSCULAR VOLUME 101 fL (79-100); MONO # 0.9 x10^3/uL (0.0-1.1); MONO % 6 % (0-9); NEUT # 12.9 x10^3/uL (1.8-7.7); NEUT % 89 % (31-73); PLATELET COUNT 359 x10^3/uL (140-400); RED BLOOD COUNT 2.54 x10^6/uL (3.50-5.40); RED CELL DISTRIBUTION WIDTH 13.6 % (11.5-14.5); WHITE BLOOD COUNT 14.5 x10^3/uL (4.0-11.0)
[2019-07-22 06:32] LABS: CALCIUM 8.3 mg/dL (8.5-10.1); CREATININE 1.3 mg/dL (0.6-1.0); GFR 40.4; POTASSIUM 4.3 mmol/L (3.5-5.1)
--- NOTE | 2019-07-22 06:40 | PDOC ---
Infectious Disease Note Subjective Subjective Doing ok. Did feel hot and cold but no shakes + BM and urinating ok No cough/sinus drainage or SOA Feels tired Throat less dry Denies N/V/D/F/C Chronic right shoulder pain - requires surgery ROS ROS o/w neg Vital Sign Vital Signs Vital Signs Date Time Temp Pulse Resp B/P (MAP) Pulse Ox O2 Delivery O2 Flow Rate FiO2 07/22/19 03:00 101.3 89 24 146/63 (90) 98 Room Air 101.3 07/21/19 20:00 3.0 Physical Exam PHYSICAL EXAM GENERAL: In bed, alert, appears comfortable - NAD HENT: Oral cavity dry, dentures in place LUNGS: CTA HEART: S1, S2. regular ABDOMEN: Soft, BS present, no CVA or abd tenderness/rebound/guard : Kuo - out EXTREMITIES: Trace edema lower extremities bilaterally NEUROLOGIC: Alert, answers questions appropriately Temp RIJ/HDC (07/16) without signs of complications SKIN: no rash Labs Lab Laboratory Tests Test 07/22/19 05:45 White Blood Count 14.5 x10^3/uL (4.0-11.0) Red Blood Count 2.54 x10^6/uL (3.50-5.40) Hemoglobin 8.8 g/dL (12.0-15.5) Hematocrit 25.7 % (36.0-47.0) Mean Corpuscular Volume 101 fL (79-100) Mean Corpuscular Hemoglobin 35 pg (25-35) Mean Corpuscular Hemoglobin Concent 34 g/dL (31-37) Red Cell Distribution Width 13.6 % (11.5-14.5) Platelet Count 359 x10^3/uL (140-400) Neutrophils (%) (Auto) 89 % (31-73) Lymphocytes (%) (Auto) 3 % (24-48) Monocytes (%) (Auto) 6 % (0-9) Eosinophils (%) (Auto) 1 % (0-3) Basophils (%) (Auto) 1 % (0-3) Neutrophils # (Auto) 12.9 x10^3/uL (1.8-7.7) Lymphocytes # (Auto) 0.5 x10^3/uL (1.0-4.8) Monocytes # (Auto) 0.9 x10^3/uL (0.0-1.1) Eosinophils # (Auto) 0.1 x10^3/uL (0.0-0.7) Basophils # (Auto) 0.1 x10^3/uL (0.0-0.2) Sodium Level 129 mmol/L (136-145) Potassium Level 4.3 mmol/L (3.5-5.1) Chloride Level 96 mmol/L (98-107) Carbon Dioxide Level 21 mmol/L (21-32) Anion Gap 12 (6-14) Blood Urea Nitrogen 29 mg/dL (7-20) Creatinine 1.3 mg/dL (0.6-1.0) Estimated GFR (Cockcroft-Gault) 40.4 Glucose Level 105 mg/dL (70-99) Calcium Level 8.3 mg/dL (8.5-10.1) Micro Microbiology 07/17/19 Blood Culture - Preliminary, Resulted NO GROWTH AFTER 3 DAYS Objective Assessment Fever Sepsis from [place] senst - Ecoli bacteremia 07/14 repeat 07/17 - neg Urinary tract infection. UC E coli (pansensitive) Leukocytosis with bandemia.- trending now Macrocytosis Acute kidney injury/acute tubular necrosis.- better Nausea, vomiting, and diarrhea, resolved. Severe hyponatremia with underlying history of chronic hyponatremia. Abnormal liver function tests - better. Right pyelocaliectasis. Thrombocytopenia - better Ascites Plan Plan of Care Blood and urine cults - not having any resp issues Add Procalcitonin Begin Dapto/Micafungin and zosyn (had been on Meropenem when WBC started to increase) Repeat CT abd/pel without contrast (LEONIDAS) to f/u on fluid collections from 07/16 - CT 07/16 Minimal ascites. Loculated fluid collection is present at the anterior aspect of the lower pelvis and additional collection is noted in the left lateral presacral region. No suspicious surrounding inflammatory findings noted. D/c Rocephin today Monitor labs CBC in am/temp Continue supportive care. D/w nursing HELENA BELLO MD Jul 22, 2019 06:40
[2019-07-22 07:26] VITALS: BP 143/66
[2019-07-22] MEDS: ASPIRIN ENTERIC COATED 81 MG TABLET.DR. PO SCH (08:56)
[2019-07-22] MEDS: METOPROLOL TART IMMED RELEASE 25 MG TABLET. PO SCH ×2 (08:56→20:36)
[2019-07-22] MEDS: amLODIPine BESYLATE 10 MG TABLET PO SCH (08:56)
[2019-07-22] MEDS: LACTOBACILLUS RHAMNOSUS GG 1 CAPSULE. PO SCH ×2 (08:56→20:36)
[2019-07-22] MEDS: traMADol 50 MG TABLET PO PRN ×2 (08:56→20:36)
[2019-07-22] MEDS: DAPTOmycin (GENERIC) IVPB 400 MG in IV NORMAL SALINE 50ML 50 ML IV SCH (08:58)
[2019-07-22] MEDS: LIDOCAINE (700MG/PATCH) PATCH. TD SCH (09:00)
[2019-07-22 09:14] LABS: % BANDS 3 % (0-9); % EOS 1 % (0-5); % LYMPHS 3 % (24-48); % MONOS 4 % (0-10); % SEGS 89 % (35-66)
[2019-07-22 09:15] LABS: PLT ESTIMATE ADEQUATE (ADEQUATE)
[2019-07-22 09:16] LABS: ANISOCYTOSIS SLIGHT
--- NOTE | 2019-07-22 10:16 | PDOC ---
SUBJECTIVE ROS Stable OBJECTIVE Vital Signs Vital Signs Date Time Temp Pulse Resp B/P (MAP) Pulse Ox O2 Delivery O2 Flow Rate FiO2 07/22/19 10:00 97 Nasal Cannula 2.0 07/22/19 08:56 86 143/66 07/22/19 07:26 98.8 24 98.8 I & 0 Intake and Output 07/22/19 07:00 Intake Total 300 ml Output Total 800 ml Balance -500 ml Intake Oral 300 ml Output Urine Total 800 ml PHYSICAL EXAM Physical Exam GENERAL: NAD HENT: Oral cavity moist Lungs- CTA , Non labored HEART: S1, S2. regular ABDOMEN: Soft, BS present : Kuo EXTREMITIES: Trace edema lower extremities bilaterally NEUROLOGIC: Alert, answers questions appropriately DIAGNOSIS/ASSESSMENT Assessment & Plan Acute kidney injury, multifactorial, due to dehydration 2/2 nausea, vomiting, diarrhea Cr peaked at 4.1 improving to 1.3 meloxicam and losartan dced CT scan Slight right pyelocaliectasis. No radiopaque collecting system calculus, No hydronephrosis No obstruction identified to involve the ureter. K and bicarb stable Supportive care, Avoid Nephrotoxins, Monitor for Polyuria Chronic hyponatremia, stable , 119 at presentation Pt reports its been present for many years and she is on NAcl tabs at home Try to restrict fluid intake to 1500 ml Hypertension- stable Macrocytosis history, followed by an oncologist at [facility]. atrial fibrillation with rapid ventricular response, treated with Cardizem bolus IV and converted to normal sinus rhythm. COMMENT/RELEVANT DATA Meds Current Medications Medications (Trade) Dose Ordered Sig/Saurabh Start Time Stop Time Status Last Admin Dose Admin Acetaminophen (Tylenol) 650 mg PRN Q4HRS PRN 07/15/19 10:45 07/21/19 18:02 650 MG Albuterol/ Ipratropium (Duoneb) 3 ml 1X ONCE 07/16/19 01:00 07/16/19 01:01 DC 07/16/19 00:59 3 ML Alprazolam (Xanax) 0.5 mg PRN Q6HRS PRN 07/15/19 21:45 07/21/19 19:47 0.5 MG Amlodipine Besylate (Norvasc) 10 mg 1X ONCE 07/19/19 22:30 07/19/19 22:31 DC 07/19/19 22:45 10 MG Aspirin (Ecotrin) 81 mg [id number] 07/20/19 18:30 07/22/19 08:56 81 MG Ceftriaxone Sodium (Rocephin) 2 gm Q24H 07/21/19 08:00 07/22/19 07:01 DC 07/21/19 08:25 2 GM Daptomycin 390 mg/ Sodium Chloride 50 ml @ 100 mls/hr Q48H 07/15/19 14:00 07/16/19 08:27 DC 07/15/19 14:56 100 MLS/HR Daptomycin 400 mg/ Sodium Chloride 50 ml @ 100 mls/hr Q24H 07/22/19 09:00 07/22/19 08:58 100 MLS/HR Digoxin (Lanoxin) 500 mcg STK-MED ONCE 07/19/19 10:33 07/19/19 10:33 DC Diltiazem HCl (Cardizem Iv Push) 25 mg STK-MED ONCE 07/19/19 06:43 07/19/19 06:43 DC Diltiazem HCl 125 mg/Dextrose 125 ml @ 5 mls/hr CONT PRN 07/19/19 07:00 07/19/19 09:18 5 MLS/HR Famotidine (Pepcid) 20 mg QHS 07/15/19 21:00 07/21/19 19:48 20 MG Furosemide (Lasix) 60 mg 1X ONCE 07/16/19 11:30 07/16/19 11:31 DC 07/16/19 11:40 60 MG Heparin Sodium (Porcine) (Hep Lock Adult) 2,800 unit Q12HR 07/16/19 21:00 07/17/19 15:35 DC Heparin Sodium (Porcine) (Heparin Sodium) 10,000 unit STK-MED ONCE 07/16/19 13:21 07/16/19 13:22 DC Heparin Sodium/ Sodium Chloride (HEPARIN for ARTERIAL LINE FLUSH) 1,000 unit 1X ONCE 07/16/19 13:45 07/16/19 13:46 DC Lactobacillus Rhamnosus (Culturelle) 1 cap BID 07/16/19 21:00 07/22/19 08:56 1 CAP Levothyroxine Sodium (Synthroid) 100 mcg DAILY06 07/15/19 06:00 07/22/19 05:45 100 MCG Lidocaine (Lidoderm) 1 patch DAILY 07/16/19 09:00 07/20/19 08:49 1 PATCH Lidocaine HCl (Buffered Lidocaine 1%) 3 ml 1X ONCE 07/16/19 13:45 07/16/19 13:46 DC 07/16/19 13:43 4 ML Linezolid/Dextrose 300 ml @ 300 mls/hr Q12HR 07/14/19 21:00 07/15/19 13:14 DC 07/15/19 09:23 300 MLS/HR Meropenem 500 mg/ Sodium Chloride 50 ml @ 100 mls/hr DAILY 07/17/19 09:00 07/20/19 15:32 DC 07/20/19 08:50 100 MLS/HR Metoprolol Tartrate (Lopressor) 25 mg BID 07/20/19 21:00 07/22/19 08:56 25 MG Micafungin Sodium 100 mg/Dextrose 100 ml @ 100 mls/hr Q24H 07/22/19 08:00 Miscellaneous (Lidoderm Patch Removal) 1 ea QHS 07/16/19 21:00 07/18/19 20:47 1 EA Ondansetron HCl (Zofran) 4 mg PRN Q4HRS PRN 07/14/19 22:30 07/15/19 15:00 4 MG Piperacillin Sod/ Tazobactam Sod (Zosyn Per Pharmacy) 1 each PRN DAILY PRN 07/15/19 00:00 UNV Piperacillin Sod/ Tazobactam Sod 2.25 gm/Sodium Chloride 50 ml @ 100 mls/hr Q8HRS 07/14/19 22:00 07/17/19 08:40 DC 07/17/19 05:59 100 MLS/HR Piperacillin Sod/ Tazobactam Sod 3.375 gm/Sodium Chloride 50 ml @ 100 mls/hr Q6HRS 07/22/19 08:00 Potassium Chloride/Water 100 ml @ 100 mls/hr Q1H 07/16/19 11:30 07/16/19 14:29 DC 07/16/19 14:38 100 MLS/HR Saliva Substitute (Biotene Moisturizing Mouth) 2 spray PRN Q15MIN PRN 07/15/19 10:45 Sodium Bicarbonate 150 meq/Dextrose 1,150 ml @ 150 mls/hr Q7H40M 07/14/19 21:00 07/16/19 11:17 DC 07/16/19 00:46 150 MLS/HR Sodium Chloride 200 ml @ 50 mls/hr 1X ONCE 07/17/19 11:30 07/17/19 15:29 DC 07/17/19 11:26 50 MLS/HR Tramadol HCl (Ultram) 50 mg PRN Q6HRS PRN 07/21/19 10:45 07/22/19 08:56 50 MG Lab Laboratory Tests Test 07/22/19 05:45 White Blood Count 14.5 x10^3/uL (4.0-11.0) Red Blood Count 2.54 x10^6/uL (3.50-5.40) Hemoglobin 8.8 g/dL (12.0-15.5) Hematocrit 25.7 % (36.0-47.0) Mean Corpuscular Volume 101 fL (79-100) Mean Corpuscular Hemoglobin 35 pg (25-35) Mean Corpuscular Hemoglobin Concent 34 g/dL (31-37) Red Cell Distribution Width 13.6 % (11.5-14.5) Platelet Count 359 x10^3/uL (140-400) Neutrophils (%) (Auto) 89 % (31-73) Lymphocytes (%) (Auto) 3 % (24-48) Monocytes (%) (Auto) 6 % (0-9) Eosinophils (%) (Auto) 1 % (0-3) Basophils (%) (Auto) 1 % (0-3) Neutrophils # (Auto) 12.9 x10^3/uL (1.8-7.7) Lymphocytes # (Auto) 0.5 x10^3/uL (1.0-4.8) Monocytes # (Auto) 0.9 x10^3/uL (0.0-1.1) Eosinophils # (Auto) 0.1 x10^3/uL (0.0-0.7) Basophils # (Auto) 0.1 x10^3/uL (0.0-0.2) Segmented Neutrophils % 89 % (35-66) Band Neutrophils % 3 % (0-9) Lymphocytes % 3 % (24-48) Monocytes % 4 % (0-10) Eosinophils % 1 % (0-5) Platelet Estimate Adequate (ADEQUATE) Anisocytosis Slight Sodium Level 129 mmol/L (136-145) Potassium Level 4.3 mmol/L (3.5-5.1) Chloride Level 96 mmol/L (98-107) Carbon Dioxide Level 21 mmol/L (21-32) Anion Gap 12 (6-14) Blood Urea Nitrogen 29 mg/dL (7-20) Creatinine 1.3 mg/dL (0.6-1.0) Estimated GFR (Cockcroft-Gault) 40.4 Glucose Level 105 mg/dL (70-99) Calcium Level 8.3 mg/dL (8.5-10.1) Procalcitonin 1.95 ng/mL (0.00-0.10) Results All relevant outside records, renal labs, imaging studies, telemetry/EKG's were reviewed. BENI DOMINGUEZ MD Jul 22, 2019 10:16
[2019-07-22 10:25] VITALS: BP 139/62
[2019-07-22] MEDS: MICAFUNGIN 100 MG in IV DEXTROSE 5% 100ML 100 ML IV SCH (10:26)
[2019-07-22] MEDS: PIPERACILLIN/TAZOBACTAM 3.375 GM in IV NORMAL SALINE 50ML 50 ML IV SCH ×3 (11:32→23:05)
--- NOTE | 2019-07-22 11:54 | RAD ---
PQRS Compliance Statement: One or more of the following individualized dose reduction techniques were utilized for this examination: 1. Automated exposure control 2. Adjustment of the mA and/or kV according to patient size 3. Use of iterative reconstruction technique CT abdomen/pelvis without contrast 07/22/2019 6:54 AM INDICATION: Leukocytosis. Left abdominal fluid collections COMPARISON: CT abdomen/pelvis 07/16/2019 TECHNIQUE: Multiple axial CT images of the abdomen and pelvis were obtained without intravenous contrast. Coronal and sagittal reformats are provided. FINDINGS: 3 mm solid noncalcified nodules identified in the lingula (series 2, image 1). Small right and trace left pleural effusion with adjacent compressive atelectasis versus infiltrate. Heart size is within normal limits. Coronary artery vascular calcifications are partially profiled. Evaluation of the solid abdominal viscera is limited by lack of intravenous contrast. Liver, spleen, bilateral adrenal glands, pancreas and gallbladder are normal in appearance. Abdominal aorta is tortuous, normal in caliber. No pathologically enlarged lymph nodes are identified in the abdomen and pelvis. There is trace free fluid in the right perihepatic region. No free intraperitoneal air. There is mild colonic diverticulosis. Evaluation of bowel is limited by lack of oral contrast. There is decompression of the distal colon. Proximal: There is normal in caliber with moderate amount stool. Appendix is not definitively visualized. Small bowel loops are normal in caliber. No bowel obstruction or inflammation. The kidneys are relatively symmetric in appearance. There is no suspicious renal mass within the limitations of a noncontrast examination. There is no hydronephrosis. There are no calculi within the kidneys, ureters or urinary bladder. Urinary bladder is within normal limits given degree of distention although there is small pocket of gas which may reflect recent instrumentation. Uterus is normal in appearance. No suspicious adnexal mass. There is remodeling of the pubic symphysis and right pubic rami. There is reverse S-shaped scoliosis of the thoracolumbar spine. No acute osseous normality is identified. Moderate degenerative changes of the hips are noted. Edema is noted within the posterior subcutaneous soft tissues with resolution of edema within the flanks compared to prior examination. IMPRESSION: 1. Near complete resolution of intra-abdominal fluid collections with minimal residual fluid identified in the right infrahepatic space. 2. Decrease in small right trace left pleural effusions with improved aeration of the lung bases. There is persistent small right and trace left pleural effusion with adjacent compressive atelectasis. 3. There is a 3 mm solid noncalcified pulmonary nodule in the lingula. Optional one-year follow-up chest CT may be of benefit based on clinical risk factors per Fleischner 2017 pulmonary nodule guidelines. Electronically signed by: Florencia Monroe MD (07/22/2019 11:51 AM) [email or web address]
[2019-07-22] MEDS: ACETAMINOPHEN 325 MG TABLET. PO PRN ×2 (13:00→19:10)
[2019-07-22 13:27] LABS: BILIRUBIN,URINE NEGATIVE (NEG); CLARITY,URINE CLEAR; COLOR,URINE YELLOW; NITRITE,URINE NEGATIVE (NEG); PROTEIN,URINE 30 mg/dL (NEG-TRACE); UROBILINOGEN,URINE 0.2 mg/dL (0.2 mg/dL)
--- NOTE | 2019-07-22 13:37 | PDOC ---
CARDIO Progress Notes Date and Time Date of Service 07/22/2019 Time of Evaluation 1320 Subjective Subjective: No Chest Pain, No shortness of breath, No Palpitations Vitals Vitals Vital Signs Date Time Temp Pulse Resp B/P (MAP) Pulse Ox O2 Delivery O2 Flow Rate FiO2 07/22/19 10:25 97.9 77 24 139/62 (87) 93 Room Air 97.9 07/22/19 10:00 2.0 Weight Weight [ ] Input and Output Intake and Output Intake and Output 07/22/19 07:00 Intake Total 300 ml Output Total 800 ml Balance -500 ml Intake Oral 300 ml Output Urine Total 800 ml Laboratory Labs Laboratory Tests Test 07/22/19 05:45 White Blood Count 14.5 x10^3/uL (4.0-11.0) Red Blood Count 2.54 x10^6/uL (3.50-5.40) Hemoglobin 8.8 g/dL (12.0-15.5) Hematocrit 25.7 % (36.0-47.0) Mean Corpuscular Volume 101 fL (79-100) Mean Corpuscular Hemoglobin 35 pg (25-35) Mean Corpuscular Hemoglobin Concent 34 g/dL (31-37) Red Cell Distribution Width 13.6 % (11.5-14.5) Platelet Count 359 x10^3/uL (140-400) Neutrophils (%) (Auto) 89 % (31-73) Lymphocytes (%) (Auto) 3 % (24-48) Monocytes (%) (Auto) 6 % (0-9) Eosinophils (%) (Auto) 1 % (0-3) Basophils (%) (Auto) 1 % (0-3) Neutrophils # (Auto) 12.9 x10^3/uL (1.8-7.7) Lymphocytes # (Auto) 0.5 x10^3/uL (1.0-4.8) Monocytes # (Auto) 0.9 x10^3/uL (0.0-1.1) Eosinophils # (Auto) 0.1 x10^3/uL (0.0-0.7) Basophils # (Auto) 0.1 x10^3/uL (0.0-0.2) Segmented Neutrophils % 89 % (35-66) Band Neutrophils % 3 % (0-9) Lymphocytes % 3 % (24-48) Monocytes % 4 % (0-10) Eosinophils % 1 % (0-5) Platelet Estimate Adequate (ADEQUATE) Anisocytosis Slight Sodium Level 129 mmol/L (136-145) Potassium Level 4.3 mmol/L (3.5-5.1) Chloride Level 96 mmol/L (98-107) Carbon Dioxide Level 21 mmol/L (21-32) Anion Gap 12 (6-14) Blood Urea Nitrogen 29 mg/dL (7-20) Creatinine 1.3 mg/dL (0.6-1.0) Estimated GFR (Cockcroft-Gault) 40.4 Glucose Level 105 mg/dL (70-99) Calcium Level 8.3 mg/dL (8.5-10.1) Procalcitonin 1.95 ng/mL (0.00-0.10) Microbiology Micro Microbiology 07/17/19 Blood Culture - Final, Complete NO GROWTH AFTER 5 DAYS Review of Systems Constitutional: yes: weakness, alert, oriented Ears/Nose/Throat: Yes: no symptom reported Eyes: Yes: no symptom reported Pulmonary: Yes dyspnea Cardiovascular: Yes no symptom reported Gastrointestional: Yes: nausea, vomiting, diarrhea Genitourinary: Yes: no symptom reported Musculoskeletal: Yes: shoulder pain Skin: Yes no symptom reported Psychiatric/Neurological: Yes: no symptom reported Endocrine: Yes: no symptom reported Hematologic/Lymphatic: Yes: no symptom reported Physical Exam HEENT: Neck Supple W Full Motion Chest: Symmetric LUNGS: Other (dimnished bases) Heart: S1S2, RRR (SR with PACs) Abdomen: Soft N/T Extremities: No Edema Neurology: alert, oriented, follow commands, Ext weakness Assessment Assessment 1. PAFIB. brief paroxysms, otherwise maintaining SR 2. UTI, sepsis, bacteremia. As per ID 3. Leukocytosis 4. LEONIDAS secondary to dehydration with GI loss. Improved 5. Hyponatremia; chronic 6. Macrocytic Anemia Recommendations 1. Continue metoprolol. ASA 2. MCOT as an outpt and note AFIB burden for NOAC consideration 3. Follow up as an outpt. JOSE L RAMIREZ ICHTHYOLOGIST Jul 22, 2019 13:37
[2019-07-22 13:45] LABS: SQUAMOUS EPITHELIAL CELL,UR MOD /LPF
[2019-07-22 13:46] LABS: BACTERIA,URINE 0 /HPF (0-FEW)
[2019-07-22 14:24] VITALS: BP 116/58
[2019-07-22 19:06] VITALS: BP 127/63
[2019-07-22] MEDS: PATCH REMOVAL. MC SCH (20:30)
[2019-07-22] MEDS: ALPRAZolam 0.5 MG TABLET PO PRN (20:36)
[2019-07-22] MEDS: FAMOTIDINE 20 MG TABLET. PO SCH (20:36)
[2019-07-22 23:11] VITALS: BP 111/59
[2019-07-23] MEDS: ACETAMINOPHEN 325 MG TABLET. PO PRN ×3 (01:18→19:52)
--- NOTE | 2019-07-23 01:20 | PN ---
DATE: 07/22/2019 SUBJECTIVE: The patient is sitting slightly propped up in her recliner, no apparent distress. She apparently worked with physical therapy, has been able to go to the bathroom and feeling generally stronger. Her kidney function has improved further. Her creatinine is down to 1.3; however, her white cell count is going up and she did spike her temperature up to 101.3. OBJECTIVE: GENERAL: When I examined her this morning, she was pale, no jaundice, cyanosis or thyromegaly. No jugular venous distention. No limb edema. VITAL SIGNS: Her heart rate was 77, blood pressure was 139/62, temperature was 97.9, respiratory rate was 24, and oxygen saturation was 93% on room air. The rest of clinical exam is stable. Her intake over the last 24 hours was 1700, output was 4975. LABORATORY DATA: As of this morning, her white cell count went up to 14,500, hemoglobin 8.8, hematocrit 25.7, MCV 101 and platelet count 359,000. Her chemistry showed serum sodium of 129, potassium 4.3, chloride 96, bicarbonate 21, anion gap of 12, BUN 29, creatinine 1.3. Estimated GFR was 40 mL per minute. Her glucose was 105 and calcium was 8.3. Her procalcitonin was 1.95. ASSESSMENT: 1. Acute kidney injury, multifactorial due to dehydration. She has recurrent episodes of nausea, vomiting and diarrhea. Prior to admission to [facility], she also was on meloxicam as well as losartan, both of which were discontinued. Her kidney functions are steadily improving, in fact her creatinine is down to 1.3 mg/dL. 2. Chronic hyponatremia, has improved yesterday up to 131, today is down to 129. 3. Her TSH was normal and her morning cortisol was high at 57 excluding the possibility of hypothyroidism and/or [place] disease as a cause of her chronic hyponatremia. 4. Other medical problems include; A. Hypertension. B. Leukopenia. C. Macrocytosis followed by an oncologist. 5. She has also an episode of atrial fibrillation with rapid ventricular response, treated with bolus of Cardizem and she is now in sinus rhythm. 6. Unfortunately, the patient spiked her temperature again. Her white cell count went up again. The Infectious Disease specialist has changed her antibiotic. She is now on daptomycin, Zosyn, and micafungin. We would obviously continue with IV antibiotic. Continue to monitor her kidney function and her blood count. Her blood cultures are so far still negative. GABRIEL REYES MD DR: ENRIQUE/jennyfer JOB#: [id number] / [id number]
[2019-07-23 02:17] VITALS: BP 125/58
[2019-07-23] MEDS: PIPERACILLIN/TAZOBACTAM 3.375 GM in IV NORMAL SALINE 50ML 50 ML IV SCH ×4 (02:58→17:44)
[2019-07-23] MEDS: LEVOTHYROXINE 100 MCG TABLET PO SCH (06:26)
[2019-07-23 06:54] LABS: BASO # 0.1 x10^3/uL (0.0-0.2); BASO % 1 % (0-3); EOS # 0.1 x10^3/uL (0.0-0.7); EOS % 1 % (0-3); HEMATOCRIT 22.8 % (36.0-47.0); HEMOGLOBIN 7.9 g/dL (12.0-15.5); LYMPH # 0.5 x10^3/uL (1.0-4.8); LYMPH % 5 % (24-48); MEAN CORPUSCULAR HEMOGLOBIN 35 pg (25-35); MEAN CORPUSCULAR HGB CONC 35 g/dL (31-37); MEAN CORPUSCULAR VOLUME 101 fL (79-100); MONO # 0.8 x10^3/uL (0.0-1.1); MONO % 7 % (0-9); NEUT # 9.3 x10^3/uL (1.8-7.7); NEUT % 86 % (31-73); PLATELET COUNT 411 x10^3/uL (140-400); RED BLOOD COUNT 2.25 x10^6/uL (3.50-5.40); RED CELL DISTRIBUTION WIDTH 13.3 % (11.5-14.5); WHITE BLOOD COUNT 10.8 x10^3/uL (4.0-11.0)
--- NOTE | 2019-07-23 06:57 | PDOC ---
Infectious Disease Note Subjective Subjective Better. + appetite and wanting to get out of bed today + BM and urinating ok No cough/sinus drainage or SOA Throat less dry Denies N/V/D/F/C Chronic right shoulder pain - requires surgery ROS ROS o/w neg Vital Sign Vital Signs Vital Signs Date Time Temp Pulse Resp B/P (MAP) Pulse Ox O2 Delivery O2 Flow Rate FiO2 07/23/19 02:17 98.9 86 18 125/58 (80) 95 Nasal Cannula 2.0 98.9 Physical Exam PHYSICAL EXAM GENERAL: In bed, alert, appears comfortable - NAD - looks better HENT: Oral cavity dry, dentures in place LUNGS: CTA HEART: S1, S2. regular ABDOMEN: Soft, BS present, no CVA or abd tenderness/rebound/guard : Kuo - out EXTREMITIES: Trace edema lower extremities bilaterally NEUROLOGIC: Alert, answers questions appropriately Temp RIJ/HDC (07/16) without signs of complications SKIN: no rash Labs Lab Laboratory Tests Test 07/22/19 13:10 Urine Collection Type Unknown Urine Color Yellow Urine Clarity Clear Urine pH 7.0 Urine Specific [place] 1.010 Urine Protein 30 mg/dL (NEG-TRACE) Urine Glucose (UA) Negative mg/dL (NEG) Urine Ketones (Stick) Negative mg/dL (NEG) Urine Blood Small (NEG) Urine Nitrite Negative (NEG) Urine Bilirubin Negative (NEG) Urine Urobilinogen Dipstick 0.2 mg/dL (0.2 mg/dL) Urine Leukocyte Esterase Trace (NEG) Urine RBC 1-2 /HPF (0-2) Urine WBC 1-4 /HPF (0-4) Urine Squamous Epithelial Cells Mod /LPF Urine Bacteria 0 /HPF (0-FEW) Micro CT 07/22 IMPRESSION: 1. Near complete resolution of intra-abdominal fluid collections with minimal residual fluid identified in the right infrahepatic space. 2. Decrease in small right trace left pleural effusions with improved aeration of the lung bases. There is persistent small right and trace left pleural effusion with adjacent compressive atelectasis. 3. There is a 3 mm solid noncalcified pulmonary nodule in the lingula. Optional one-year follow-up chest CT may be of benefit based on clinical risk factors per Fleischner 2017 pulmonary nodule guidelines. Microbiology 07/17/19 Blood Culture - Preliminary, Resulted NO GROWTH AFTER 3 DAYS Objective Assessment Fever - better - CT reveiwed 07/22 with resolution. Procal elevated Sepsis from [place] senst - Ecoli bacteremia 07/14 repeat 07/17 - neg Urinary tract infection. UC E coli (pansensitive) Leukocytosis with bandemia.- better now abx changed 07/22 Macrocytosis Acute kidney injury/acute tubular necrosis.- better Nausea, vomiting, and diarrhea, resolved. Severe hyponatremia with underlying history of chronic hyponatremia. Abnormal liver function tests - better. Right pyelocaliectasis. Thrombocytopenia - better Ascites Plan Plan of Care F/u Blood and urine cults 07/22 Began Dapto/Micafungin and zosyn 07/22 (had been on Meropenem when WBC started to increase) D/c Rocephin 07/22 Monitor labs CBC in am/temp Continue supportive care. D/w nursing HELENA BELLO MD Jul 23, 2019 06:57
[2019-07-23 07:00] VITALS: BP 149/65
[2019-07-23 07:00] LABS: ALBUMIN 1.8 g/dL (3.4-5.0); ALBUMIN/GLOBULIN RATIO 0.5 (1.0-1.7); CREATININE 1.5 mg/dL (0.6-1.0); GFR 34.2; POTASSIUM 4.5 mmol/L (3.5-5.1); TOTAL BILIRUBIN 0.7 mg/dL (0.2-1.0); TOTAL PROTEIN 5.6 g/dL (6.4-8.2)
[2019-07-23] MEDS: amLODIPine BESYLATE 10 MG TABLET PO SCH (08:55)
[2019-07-23] MEDS: DAPTOmycin (GENERIC) IVPB 400 MG in IV NORMAL SALINE 50ML 50 ML IV SCH (08:55)
[2019-07-23] MEDS: LACTOBACILLUS RHAMNOSUS GG 1 CAPSULE. PO SCH ×2 (08:55→19:52)
[2019-07-23] MEDS: ASPIRIN ENTERIC COATED 81 MG TABLET.DR. PO SCH (08:55)
[2019-07-23] MEDS: METOPROLOL TART IMMED RELEASE 25 MG TABLET. PO SCH ×2 (08:56→19:53)
[2019-07-23] MEDS: LIDOCAINE (700MG/PATCH) PATCH. TD SCH (08:56)
[2019-07-23] MEDS: traMADol 50 MG TABLET PO PRN ×2 (09:03→15:28)
--- NOTE | 2019-07-23 09:53 | PDOC ---
SUBJECTIVE ROS Stable OBJECTIVE Vital Signs Vital Signs Date Time Temp Pulse Resp B/P (MAP) Pulse Ox O2 Delivery O2 Flow Rate FiO2 07/23/19 09:03 95 Nasal Cannula 2.0 07/23/19 08:56 99 149/65 07/23/19 07:00 97.6 20 97.6 I & 0 Intake and Output 07/23/19 07:00 Intake Total 1490 ml Output Total 1000 ml Balance 490 ml Intake Oral 1340 ml IV Total 150 ml Output Urine Total 1000 ml PHYSICAL EXAM Physical Exam GENERAL: NAD HENT: Oral cavity moist Lungs- CTA , Non labored HEART: S1, S2. regular ABDOMEN: Soft, BS present EXTREMITIES: Trace edema lower extremities bilaterally NEUROLOGIC: Alert, answers questions appropriately DIAGNOSIS/ASSESSMENT Assessment & Plan Acute kidney injury, multifactorial, due to dehydration 2/2 nausea, vomiting, diarrhea Cr peaked at 4.1 i to 1.3 , Up to 1,5 today , baseline unknown meloxicam and losartan dced CT scan Slight right pyelocaliectasis. No radiopaque collecting system calculus, No hydronephrosis No obstruction identified to involve the ureter. K and bicarb stable Supportive care, Avoid Nephrotoxins, Monitor for Polyuria Chronic hyponatremia, stable , 119 at presentation on NAcl tabs at home Hypertension- stable Macrocytosis history, followed by an oncologist at [facility]. atrial fibrillation with rapid ventricular response, treated with Cardizem bolus IV and converted to normal sinus rhythm. COMMENT/RELEVANT DATA Meds Current Medications Medications (Trade) Dose Ordered Sig/Saurabh Start Time Stop Time Status Last Admin Dose Admin Acetaminophen (Tylenol) 650 mg PRN Q4HRS PRN 07/15/19 10:45 07/23/19 08:55 650 MG Albuterol/ Ipratropium (Duoneb) 3 ml 1X ONCE 07/16/19 01:00 07/16/19 01:01 DC 07/16/19 00:59 3 ML Alprazolam (Xanax) 0.5 mg PRN Q6HRS PRN 07/15/19 21:45 07/22/19 20:36 0.5 MG Amlodipine Besylate (Norvasc) 10 mg 1X ONCE 07/19/19 22:30 07/19/19 22:31 DC 07/19/19 22:45 10 MG Aspirin (Ecotrin) 81 mg [id number] 07/20/19 18:30 07/23/19 08:55 81 MG Ceftriaxone Sodium (Rocephin) 2 gm Q24H 07/21/19 08:00 07/22/19 07:01 DC 07/21/19 08:25 2 GM Daptomycin 390 mg/ Sodium Chloride 50 ml @ 100 mls/hr Q48H 07/15/19 14:00 07/16/19 08:27 DC 07/15/19 14:56 100 MLS/HR Daptomycin 400 mg/ Sodium Chloride 50 ml @ 100 mls/hr Q24H 07/22/19 09:00 07/23/19 08:55 100 MLS/HR Digoxin (Lanoxin) 500 mcg STK-MED ONCE 07/19/19 10:33 07/19/19 10:33 DC Diltiazem HCl (Cardizem Iv Push) 25 mg STK-MED ONCE 07/19/19 06:43 07/19/19 06:43 DC Diltiazem HCl 125 mg/Dextrose 125 ml @ 5 mls/hr CONT PRN 07/19/19 07:00 07/19/19 09:18 5 MLS/HR Famotidine (Pepcid) 20 mg QHS 07/15/19 21:00 07/22/19 20:36 20 MG Furosemide (Lasix) 60 mg 1X ONCE 07/16/19 11:30 07/16/19 11:31 DC 07/16/19 11:40 60 MG Heparin Sodium (Porcine) (Hep Lock Adult) 2,800 unit Q12HR 07/16/19 21:00 07/17/19 15:35 DC Heparin Sodium (Porcine) (Heparin Sodium) 10,000 unit STK-MED ONCE 07/16/19 13:21 07/16/19 13:22 DC Heparin Sodium/ Sodium Chloride (HEPARIN for ARTERIAL LINE FLUSH) 1,000 unit 1X ONCE 07/16/19 13:45 07/16/19 13:46 DC Lactobacillus Rhamnosus (Culturelle) 1 cap BID 07/16/19 21:00 07/23/19 08:55 1 CAP Levothyroxine Sodium (Synthroid) 100 mcg DAILY06 07/15/19 06:00 07/23/19 06:26 100 MCG Lidocaine (Lidoderm) 1 patch DAILY 07/16/19 09:00 07/20/19 08:49 1 PATCH Lidocaine HCl (Buffered Lidocaine 1%) 3 ml 1X ONCE 07/16/19 13:45 07/16/19 13:46 DC 07/16/19 13:43 4 ML Linezolid/Dextrose 300 ml @ 300 mls/hr Q12HR 07/14/19 21:00 07/15/19 13:14 DC 07/15/19 09:23 300 MLS/HR Meropenem 500 mg/ Sodium Chloride 50 ml @ 100 mls/hr DAILY 07/17/19 09:00 07/20/19 15:32 DC 07/20/19 08:50 100 MLS/HR Metoprolol Tartrate (Lopressor) 25 mg BID 07/20/19 21:00 07/23/19 08:56 25 MG Micafungin Sodium 100 mg/Dextrose 100 ml @ 100 mls/hr Q24H 07/22/19 08:00 07/22/19 10:26 100 MLS/HR Miscellaneous (Lidoderm Patch Removal) 1 ea QHS 07/16/19 21:00 07/18/19 20:47 1 EA Ondansetron HCl (Zofran) 4 mg PRN Q4HRS PRN 07/14/19 22:30 07/15/19 15:00 4 MG Piperacillin Sod/ Tazobactam Sod (Zosyn Per Pharmacy) 1 each PRN DAILY PRN 07/15/19 00:00 UNV Piperacillin Sod/ Tazobactam Sod 2.25 gm/Sodium Chloride 50 ml @ 100 mls/hr Q8HRS 07/14/19 22:00 07/17/19 08:40 DC 07/17/19 05:59 100 MLS/HR Piperacillin Sod/ Tazobactam Sod 3.375 gm/Sodium Chloride 50 ml @ 100 mls/hr Q6HRS 07/22/19 08:00 07/23/19 06:26 100 MLS/HR Potassium Chloride/Water 100 ml @ 100 mls/hr Q1H 07/16/19 11:30 07/16/19 14:29 DC 07/16/19 14:38 100 MLS/HR Saliva Substitute (Biotene Moisturizing Mouth) 2 spray PRN Q15MIN PRN 07/15/19 10:45 Sodium Bicarbonate 150 meq/Dextrose 1,150 ml @ 150 mls/hr Q7H40M 07/14/19 21:00 07/16/19 11:17 DC 07/16/19 00:46 150 MLS/HR Sodium Chloride 200 ml @ 50 mls/hr 1X ONCE 07/17/19 11:30 07/17/19 15:29 DC 07/17/19 11:26 50 MLS/HR Tramadol HCl (Ultram) 50 mg PRN Q6HRS PRN 07/21/19 10:45 07/23/19 09:03 50 MG Lab Laboratory Tests Test 07/22/19 13:10 07/23/19 06:35 Urine Collection Type Unknown Urine Color Yellow Urine Clarity Clear Urine pH 7.0 Urine Specific Carver 1.010 Urine Protein 30 mg/dL (NEG-TRACE) Urine Glucose (UA) Negative mg/dL (NEG) Urine Ketones (Stick) Negative mg/dL (NEG) Urine Blood Small (NEG) Urine Nitrite Negative (NEG) Urine Bilirubin Negative (NEG) Urine Urobilinogen Dipstick 0.2 mg/dL (0.2 mg/dL) Urine Leukocyte Esterase Trace (NEG) Urine RBC 1-2 /HPF (0-2) Urine WBC 1-4 /HPF (0-4) Urine Squamous Epithelial Cells Mod /LPF Urine Bacteria 0 /HPF (0-FEW) White Blood Count 10.8 x10^3/uL (4.0-11.0) Red Blood Count 2.25 x10^6/uL (3.50-5.40) Hemoglobin 7.9 g/dL (12.0-15.5) Hematocrit 22.8 % (36.0-47.0) Mean Corpuscular Volume 101 fL (79-100) Mean Corpuscular Hemoglobin 35 pg (25-35) Mean Corpuscular Hemoglobin Concent 35 g/dL (31-37) Red Cell Distribution Width 13.3 % (11.5-14.5) Platelet Count 411 x10^3/uL (140-400) Neutrophils (%) (Auto) 86 % (31-73) Lymphocytes (%) (Auto) 5 % (24-48) Monocytes (%) (Auto) 7 % (0-9) Eosinophils (%) (Auto) 1 % (0-3) Basophils (%) (Auto) 1 % (0-3) Neutrophils # (Auto) 9.3 x10^3/uL (1.8-7.7) Lymphocytes # (Auto) 0.5 x10^3/uL (1.0-4.8) Monocytes # (Auto) 0.8 x10^3/uL (0.0-1.1) Eosinophils # (Auto) 0.1 x10^3/uL (0.0-0.7) Basophils # (Auto) 0.1 x10^3/uL (0.0-0.2) Sodium Level 132 mmol/L (136-145) Potassium Level 4.5 mmol/L (3.5-5.1) Chloride Level 100 mmol/L (98-107) Carbon Dioxide Level 21 mmol/L (21-32) Anion Gap 11 (6-14) Blood Urea Nitrogen 27 mg/dL (7-20) Creatinine 1.5 mg/dL (0.6-1.0) Estimated GFR (Cockcroft-Gault) 34.2 BUN/Creatinine Ratio 18 (6-20) Glucose Level 101 mg/dL (70-99) Calcium Level 8.0 mg/dL (8.5-10.1) Total Bilirubin 0.7 mg/dL (0.2-1.0) Aspartate Amino Transf (AST/SGOT) 34 U/L (15-37) Alanine Aminotransferase (ALT/SGPT) 50 U/L (14-59) Alkaline Phosphatase 104 U/L (46-116) Total Protein 5.6 g/dL (6.4-8.2) Albumin 1.8 g/dL (3.4-5.0) Albumin/Globulin Ratio 0.5 (1.0-1.7) Results All relevant outside records, renal labs, imaging studies, telemetry/EKG's were reviewed. BENI DOMINGUEZ MD Jul 23, 2019 09:53
[2019-07-23] MEDS: MICAFUNGIN 100 MG in IV DEXTROSE 5% 100ML 100 ML IV SCH (10:00)
[2019-07-23 11:00] VITALS: BP 108/52
--- NOTE | 2019-07-23 14:28 | PDOC ---
CARDIO Progress Notes Date and Time Date of Service 07/23/2019 Time of Evaluation 1350 Subjective Subjective: No Chest Pain, No shortness of breath, No Palpitations, Other (feels better today) Vitals Vitals Vital Signs Date Time Temp Pulse Resp B/P (MAP) Pulse Ox O2 Delivery O2 Flow Rate FiO2 07/23/19 11:00 98.2 74 20 108/52 (70) 98 Nasal Cannula 2.5 98.2 Weight Weight [ ] Input and Output Intake and Output Intake and Output 07/23/19 07:00 Intake Total 1490 ml Output Total 1000 ml Balance 490 ml Intake Oral 1340 ml IV Total 150 ml Output Urine Total 1000 ml Laboratory Labs Laboratory Tests Test 07/23/19 06:35 White Blood Count 10.8 x10^3/uL (4.0-11.0) Red Blood Count 2.25 x10^6/uL (3.50-5.40) Hemoglobin 7.9 g/dL (12.0-15.5) Hematocrit 22.8 % (36.0-47.0) Mean Corpuscular Volume 101 fL (79-100) Mean Corpuscular Hemoglobin 35 pg (25-35) Mean Corpuscular Hemoglobin Concent 35 g/dL (31-37) Red Cell Distribution Width 13.3 % (11.5-14.5) Platelet Count 411 x10^3/uL (140-400) Neutrophils (%) (Auto) 86 % (31-73) Lymphocytes (%) (Auto) 5 % (24-48) Monocytes (%) (Auto) 7 % (0-9) Eosinophils (%) (Auto) 1 % (0-3) Basophils (%) (Auto) 1 % (0-3) Neutrophils # (Auto) 9.3 x10^3/uL (1.8-7.7) Lymphocytes # (Auto) 0.5 x10^3/uL (1.0-4.8) Monocytes # (Auto) 0.8 x10^3/uL (0.0-1.1) Eosinophils # (Auto) 0.1 x10^3/uL (0.0-0.7) Basophils # (Auto) 0.1 x10^3/uL (0.0-0.2) Sodium Level 132 mmol/L (136-145) Potassium Level 4.5 mmol/L (3.5-5.1) Chloride Level 100 mmol/L (98-107) Carbon Dioxide Level 21 mmol/L (21-32) Anion Gap 11 (6-14) Blood Urea Nitrogen 27 mg/dL (7-20) Creatinine 1.5 mg/dL (0.6-1.0) Estimated GFR (Cockcroft-Gault) 34.2 BUN/Creatinine Ratio 18 (6-20) Glucose Level 101 mg/dL (70-99) Calcium Level 8.0 mg/dL (8.5-10.1) Total Bilirubin 0.7 mg/dL (0.2-1.0) Aspartate Amino Transf (AST/SGOT) 34 U/L (15-37) Alanine Aminotransferase (ALT/SGPT) 50 U/L (14-59) Alkaline Phosphatase 104 U/L (46-116) Total Protein 5.6 g/dL (6.4-8.2) Albumin 1.8 g/dL (3.4-5.0) Albumin/Globulin Ratio 0.5 (1.0-1.7) Microbiology Micro Microbiology 07/22/19 Blood Culture - Preliminary, Resulted NO GROWTH AFTER 1 DAY Review of Systems Constitutional: yes: weakness, alert, oriented Ears/Nose/Throat: Yes: no symptom reported Eyes: Yes: no symptom reported Pulmonary: Yes dyspnea Cardiovascular: Yes no symptom reported Gastrointestional: Yes: nausea, vomiting, diarrhea Genitourinary: Yes: no symptom reported Musculoskeletal: Yes: shoulder pain Skin: Yes no symptom reported Psychiatric/Neurological: Yes: no symptom reported Endocrine: Yes: no symptom reported Hematologic/Lymphatic: Yes: no symptom reported Physical Exam HEENT: Neck Supple W Full Motion Chest: Symmetric LUNGS: Other (dimnished bases) Heart: S1S2, RRR (SR with PACs) Abdomen: Soft N/T Extremities: No Edema Neurology: alert, oriented, follow commands Assessment Assessment 1. PAFIB. brief paroxysms, otherwise maintaining SR. none further overnight 2. UTI, sepsis, bacteremia. As per ID 3. Leukocytosis 4. LEONIDAS : prerenal, nephrology following 5. Hyponatremia; chronic: Na better 6. Macrocytic Anemia: Hgb 7.9 Recommendations 1. Continue metoprolol. baby ASA 2. MCOT as an outpt and note AFIB burden for NOAC consideration. possibly poor candidate 3. Follow up as an outpt. JOSE L RAMIREZ MANAGER INSTRUMENTATION Jul 23, 2019 14:28
[2019-07-23 15:00] VITALS: BP 134/63
--- NOTE | 2019-07-23 16:10 | NUR ---
SS following up with discharge planning. Pt now on three IV abx, Dapto, Zosyn, and Micafungin. SS notified [facility] of change of status. [facility] is requesting new referral once pt is medically stable. They reported that they are unable to take on the three antibiotics. SS will continue to follow for discharge planning.
[2019-07-23 19:30] VITALS: BP 126/56
[2019-07-23] MEDS: ALPRAZolam 0.5 MG TABLET PO PRN (19:52)
[2019-07-23] MEDS: FAMOTIDINE 20 MG TABLET. PO SCH (19:52)
[2019-07-23] MEDS: PATCH REMOVAL. MC SCH (19:53)
[2019-07-23 23:00] VITALS: BP 112/56
--- NOTE | 2019-07-23 23:40 | PN ---
DATE: 07/23/2019 SUBJECTIVE: The patient is resting, slightly propped up in her recliner, sleeping comfortably, in no apparent distress. On questioning her, she denied any complaints. Nursing staff did not voice any concerns that she has been up and about, did much better than yesterday with physical therapy. She is afebrile. Her white cell count is trending down. OBJECTIVE: GENERAL: When I examined her, she was pale. No jaundice or cyanosis. No thyromegaly. No jugular venous distention. No limb edema. VITAL SIGNS: Her heart rate was 99, blood pressure was 149/65, temperature was 97.6, respiratory rate was 20, and oxygen saturation was 95% on 2 liters of oxygen. HEAD, EYES, EARS, NOSE AND THROAT: Showed normocephalic, atraumatic. NECK: Supple. HEART: Showed normal first and second heart sounds. No gallop or murmur. CHEST: Clear to auscultation. No crepitation or rhonchi. ABDOMEN: Distended, soft, nontender. NEUROLOGIC: She is sleepy, but arousable. All cranial nerves are intact. She moves extremities without difficulty. She ambulates with a walker. Her intake over the last 24 hours was 1490, output was 1000. LABORATORY DATA: As of this morning, her serum sodium was 132, potassium 4.5, chloride 100, bicarbonate 21, anion gap of 11, BUN 27, creatinine 1.5. Estimated GFR was 34 mL per minute. Her glucose was 111. Calcium was 8. Total bilirubin, AST, ALT, alkaline phosphatase were normal. Total protein was 5.6, albumin was 1.8. Her white cell count is 10,800, hemoglobin 7.9, hematocrit 22.8, MCV 101 and platelet count of 411,000 with normal manual differential. ASSESSMENT: 1. Acute kidney injury, multifactorial including dehydration due to recurrent bouts of nausea, vomiting and diarrhea as well as meloxicam and losartan. Both of these were discontinued. Her creatinine has peaked at 4.1 down to 1.3 and this morning went up to 1.5. Her creatinine as of 10/2018 was 0.9 mg/dL. 2. Chronic hyponatremia has improved. Her serum sodium is up to 132 mEq/L. TSH is normal and morning cortisol was high at 57 excluding the possibility of hypothyroidism and Leeper's disease as a cause of her chronic hyponatremia. 3. Other medical problems include: A. Hypertension. B. Leukopenia. C. Macrocytosis, followed by oncologist. 4. She has an episode of atrial fibrillation with rapid ventricular response, treated with bolus of Cardizem. Since then, she is in sinus rhythm. 5. The patient has spiked her temperature and her white cell count went up again and Infectious Disease specialist has changed her antibiotics. She is now on daptomycin, Zosyn and micafungin. She today is afebrile. White cell count is trending down. PLAN: To continue with physical and occupational therapy. Continue with IV antibiotics. We will follow her lab work and decide on further management accordingly. GABRIEL REYES MD DR: ENRIQUE/jennyfer JOB#: [id number] / [id number]
[2019-07-24] VITALS (7 sets, daily range): BP systolic 118–148; BP diastolic 57–67
[2019-07-24] MEDS: LEVOTHYROXINE 100 MCG TABLET PO SCH (06:01)
[2019-07-24] MEDS: PIPERACILLIN/TAZOBACTAM 3.375 GM in IV NORMAL SALINE 50ML 50 ML IV SCH ×6 (06:02→22:59)
[2019-07-24] MEDS: ACETAMINOPHEN 325 MG TABLET. PO PRN ×3 (06:52→18:40)
[2019-07-24 07:06] LABS: HEMATOCRIT 22.5 % (36.0-47.0); HEMOGLOBIN 7.8 g/dL (12.0-15.5); RED BLOOD COUNT 2.22 x10^6/uL (3.50-5.40); RED CELL DISTRIBUTION WIDTH 13.5 % (11.5-14.5); WHITE BLOOD COUNT 12.1 x10^3/uL (4.0-11.0)
[2019-07-24 07:39] LABS: CALCIUM 8.1 mg/dL (8.5-10.1); CREATININE 1.3 mg/dL (0.6-1.0); GFR 40.4; POTASSIUM 4.3 mmol/L (3.5-5.1)
[2019-07-24] MEDS: LACTOBACILLUS RHAMNOSUS GG 1 CAPSULE. PO SCH ×2 (08:30→20:31)
[2019-07-24] MEDS: ASPIRIN ENTERIC COATED 81 MG TABLET.DR. PO SCH (08:30)
[2019-07-24] MEDS: METOPROLOL TART IMMED RELEASE 25 MG TABLET. PO SCH ×2 (08:30→20:32)
[2019-07-24] MEDS: amLODIPine BESYLATE 10 MG TABLET PO SCH (08:30)
[2019-07-24] MEDS: MICAFUNGIN 100 MG in IV DEXTROSE 5% 100ML 100 ML IV SCH (08:31)
--- NOTE | 2019-07-24 08:40 | PDOC ---
Infectious Disease Note Subjective Subjective Better. + appetite still and wanting to get out of bed today and more functional today + BM and urinating ok No cough/sinus drainage or SOA Throat less dry Denies N/V/D/F/C Chronic right shoulder pain - requires surgery ROS ROS o/w neg Vital Sign Vital Signs Vital Signs Date Time Temp Pulse Resp B/P (MAP) Pulse Ox O2 Delivery O2 Flow Rate FiO2 07/24/19 08:33 82 129/58 (81) 07/24/19 03:50 98.2 18 Nasal Cannula 2.0 98.2 07/23/19 23:00 96 Physical Exam PHYSICAL EXAM GENERAL: In bed, alert, appears comfortable - NAD - looks well HENT: Oral cavity dry, dentures in place LUNGS: CTA HEART: S1, S2. regular ABDOMEN: Soft, BS present, no CVA or abd tenderness/rebound/guard : Kuo - out EXTREMITIES: Trace edema lower extremities bilaterally NEUROLOGIC: Alert, answers questions appropriately Temp RIJ/HDC (07/16) without signs of complications SKIN: no rash Labs Lab Laboratory Tests Test 07/24/19 06:00 07/24/19 06:30 Sodium Level 132 mmol/L (136-145) Potassium Level 4.3 mmol/L (3.5-5.1) Chloride Level 99 mmol/L (98-107) Carbon Dioxide Level 21 mmol/L (21-32) Anion Gap 12 (6-14) Blood Urea Nitrogen 20 mg/dL (7-20) Creatinine 1.3 mg/dL (0.6-1.0) Estimated GFR (Cockcroft-Gault) 40.4 Glucose Level 104 mg/dL (70-99) Calcium Level 8.1 mg/dL (8.5-10.1) White Blood Count 12.1 x10^3/uL (4.0-11.0) Red Blood Count 2.22 x10^6/uL (3.50-5.40) Hemoglobin 7.8 g/dL (12.0-15.5) Hematocrit 22.5 % (36.0-47.0) Mean Corpuscular Volume 101 fL (79-100) Mean Corpuscular Hemoglobin 35 pg (25-35) Mean Corpuscular Hemoglobin Concent 35 g/dL (31-37) Red Cell Distribution Width 13.5 % (11.5-14.5) Platelet Count 536 x10^3/uL (140-400) Creatine Kinase 21 U/L (26-192) Micro CT 07/22 IMPRESSION: 1. Near complete resolution of intra-abdominal fluid collections with minimal residual fluid identified in the right infrahepatic space. 2. Decrease in small right trace left pleural effusions with improved aeration of the lung bases. There is persistent small right and trace left pleural effusion with adjacent compressive atelectasis. 3. There is a 3 mm solid noncalcified pulmonary nodule in the lingula. Optional one-year follow-up chest CT may be of benefit based on clinical risk factors per Fleischner 2017 pulmonary nodule guidelines. Microbiology 07/17/19 Blood Culture - Preliminary, Resulted NO GROWTH AFTER 3 DAYS Objective Assessment Fever - better - CT reveiwed 07/22 with resolution. Procal elevated Sepsis from [place] senst - Ecoli bacteremia 07/14 repeat 07/17 - neg Urinary tract infection. UC E coli (pansensitive) Leukocytosis with bandemia.- improved now abx changed 07/22 but now increased again today but clinically better Macrocytosis Acute kidney injury/acute tubular necrosis.- better Nausea, vomiting, and diarrhea, resolved. Severe hyponatremia with underlying history of chronic hyponatremia. Abnormal liver function tests - better. Right pyelocaliectasis. Thrombocytopenia - better Ascites Plan Plan of Care F/u Blood and urine cults 07/22 Began Dapto/Micafungin and zosyn 07/22 (had been on Meropenem when WBC started to increase) D/c Rocephin 07/22 Monitor labs CBC in am/temp Continue supportive care. D/w nursing HELENA BELLO MD Jul 24, 2019 08:40
[2019-07-24] MEDS: LIDOCAINE (700MG/PATCH) PATCH. TD SCH (09:00)
--- NOTE | 2019-07-24 09:35 | PN ---
DATE: 07/24/2019 SUBJECTIVE: The patient is sitting propped up, eating her breakfast comfortably. She is definitely more awake, alert. The patient herself stated that she is feeling much better. Her lab work showed creatinine is trending down, this morning is 1.3. She apparently has been up and about. PHYSICAL EXAMINATION: GENERAL: When I examined her, she was pale, but no jaundice, cyanosis or thyromegaly. No jugular venous distention. No limb edema. VITAL SIGNS: Her heart rate was 82, blood pressure was 129/58, temperature was 98.2, respiratory rate was 18 and oxygen saturation was 96%. HEAD, EYES, EARS, NOSE AND THROAT: Showed normocephalic, atraumatic. NECK: Supple. HEART: Showed normal first and second heart sounds. No gallop, rub or murmur. CHEST: Clear to auscultation. No crepitation or rhonchi. ABDOMEN: Distended, soft, nontender. NEUROLOGIC: She is definitely more awake, alert, responding appropriately. All cranial nerves are intact. She moves extremities without difficulty. Her intake over the last 24 hours was 1500, output was 1000. LABORATORY DATA: Her chemistry this morning showed serum sodium of 132, potassium 4.3, chloride 99, bicarbonate 21, anion gap of 12, BUN 20, creatinine 1.3, estimated GFR was 40 mL per minute. Her glucose 104, calcium was 8.1. CK was only 21. Total protein 5.6, albumin 1.8. Her white cell count was 12,000; hemoglobin 7.8; hematocrit 22.5; MCV 101 and platelet count of 536,000. ASSESSMENT: 1. Acute kidney injury, multifactorial, improving. Her creatinine is down from 4.1-1.3. 2. Hyponatremia, improving. Her serum sodium is up to 132. 3. She has other medical problems include: A. Hypertension. B. Leukopenia. C. Macrocytosis. 4. She has an episode of atrial fibrillation with rapid ventricular response, treated with bolus of Cardizem. Since then, she has been in sinus rhythm. 5. She has sepsis with growth of Escherichia coli in her blood and urine culture for which she continues to be on daptomycin, micafungin and Zosyn. PLAN: To continue with IV antibiotic. Continue nutritional support. Continue with physical and occupational therapy. GABRIEL REYES MD DR: ENRIQUE/jennyfer JOB#: [id number] / [id number]
[2019-07-24] MEDS: DAPTOmycin (GENERIC) IVPB 400 MG in IV NORMAL SALINE 50ML 50 ML IV SCH (09:59)
[2019-07-24 10:25] LABS: CALCIUM 8.2 mg/dL (8.5-10.1); CREATININE 1.4 mg/dL (0.6-1.0); GFR 37.1; POTASSIUM 4.5 mmol/L (3.5-5.1)
--- NOTE | 2019-07-24 11:22 | PDOC ---
SUBJECTIVE ROS Stable OBJECTIVE Vital Signs Vital Signs Date Time Temp Pulse Resp B/P (MAP) Pulse Ox O2 Delivery O2 Flow Rate FiO2 07/24/19 08:33 82 129/58 (81) 07/24/19 07:00 98.5 18 97 Nasal Cannula 2.0 98.5 I & 0 Intake and Output 07/24/19 07:00 Intake Total 2070 ml Output Total 1151 ml Balance 919 ml Intake Oral 2070 ml Output Urine Total 1151 ml # Voids 1 # Bowel Movements 1 PHYSICAL EXAM Physical Exam GENERAL: NAD HENT: Oral cavity moist Lungs- CTA , Non labored HEART: S1, S2. regular ABDOMEN: Soft, BS present EXTREMITIES: Trace edema lower extremities bilaterally NEUROLOGIC: Alert, answers questions appropriately DIAGNOSIS/ASSESSMENT Assessment & Plan Acute kidney injury, multifactorial, due to dehydration 2/2 nausea, vomiting, diarrhea Cr peaked at 4.1 to 1.3 , stable meloxicam and losartan dced CT scan Slight right pyelocaliectasis. No radiopaque collecting system calculus, No hydronephrosis No obstruction identified to involve the ureter. K and bicarb stable Supportive care, Avoid Nephrotoxins, Monitor for Polyuria Chronic hyponatremia, stable , 119 at presentation on NAcl tabs at home Hypertension- stable Macrocytosis history, followed by an oncologist at [facility]. atrial fibrillation with rapid ventricular response, treated with Cardizem bolus IV and converted to normal sinus rhythm. COMMENT/RELEVANT DATA Meds Current Medications Medications (Trade) Dose Ordered Sig/Saurabh Start Time Stop Time Status Last Admin Dose Admin Acetaminophen (Tylenol) 650 mg PRN Q4HRS PRN 07/15/19 10:45 07/24/19 06:52 650 MG Albuterol/ Ipratropium (Duoneb) 3 ml 1X ONCE 07/16/19 01:00 07/16/19 01:01 DC 07/16/19 00:59 3 ML Alprazolam (Xanax) 0.5 mg PRN Q6HRS PRN 07/15/19 21:45 07/23/19 19:52 0.5 MG Amlodipine Besylate (Norvasc) 10 mg 1X ONCE 07/19/19 22:30 07/19/19 22:31 DC 07/19/19 22:45 10 MG Aspirin (Ecotrin) 81 mg DAILYWBKFT 07/20/19 18:30 11/22/19 08:30 81 MG Ceftriaxone Sodium (Rocephin) 2 gm Q24H 07/21/19 08:00 07/22/19 07:01 DC 07/21/19 08:25 2 GM Daptomycin 390 mg/ Sodium Chloride 50 ml @ 100 mls/hr Q48H 07/15/19 14:00 07/16/19 08:27 DC 07/15/19 14:56 100 MLS/HR Daptomycin 400 mg/ Sodium Chloride 50 ml @ 100 mls/hr Q24H 07/22/19 09:00 07/24/19 09:59 100 MLS/HR Digoxin (Lanoxin) 500 mcg STK-MED ONCE 07/19/19 10:33 07/19/19 10:33 DC Diltiazem HCl (Cardizem Iv Push) 25 mg STK-MED ONCE 07/19/19 06:43 07/19/19 06:43 DC Diltiazem HCl 125 mg/Dextrose 125 ml @ 5 mls/hr CONT PRN 07/19/19 07:00 07/19/19 09:18 5 MLS/HR Famotidine (Pepcid) 20 mg QHS 07/15/19 21:00 07/23/19 19:52 20 MG Furosemide (Lasix) 60 mg 1X ONCE 07/16/19 11:30 07/16/19 11:31 DC 07/16/19 11:40 60 MG Heparin Sodium (Porcine) (Hep Lock Adult) 2,800 unit Q12HR 07/16/19 21:00 07/17/19 15:35 DC Heparin Sodium (Porcine) (Heparin Sodium) 10,000 unit STK-MED ONCE 07/16/19 13:21 07/16/19 13:22 DC Heparin Sodium/ Sodium Chloride (HEPARIN for ARTERIAL LINE FLUSH) 1,000 unit 1X ONCE 07/16/19 13:45 07/16/19 13:46 DC Lactobacillus Rhamnosus (Culturelle) 1 cap BID 07/16/19 21:00 07/24/19 08:30 1 CAP Levothyroxine Sodium (Synthroid) 100 mcg DAILY06 07/15/19 06:00 07/24/19 06:01 100 MCG Lidocaine (Lidoderm) 1 patch DAILY 07/16/19 09:00 07/20/19 08:49 1 PATCH Lidocaine HCl (Buffered Lidocaine 1%) 3 ml 1X ONCE 07/16/19 13:45 07/16/19 13:46 DC 07/16/19 13:43 4 ML Linezolid/Dextrose 300 ml @ 300 mls/hr Q12HR 07/14/19 21:00 07/15/19 13:14 DC 07/15/19 09:23 300 MLS/HR Meropenem 500 mg/ Sodium Chloride 50 ml @ 100 mls/hr DAILY 07/17/19 09:00 07/20/19 15:32 DC 07/20/19 08:50 100 MLS/HR Metoprolol Tartrate (Lopressor) 25 mg BID 07/20/19 21:00 07/24/19 08:30 25 MG Micafungin Sodium 100 mg/Dextrose 100 ml @ 100 mls/hr Q24H 07/22/19 08:00 07/24/19 08:31 100 MLS/HR Miscellaneous (Lidoderm Patch Removal) 1 ea QHS 07/16/19 21:00 07/18/19 20:47 1 EA Ondansetron HCl (Zofran) 4 mg PRN Q4HRS PRN 07/14/19 22:30 07/15/19 15:00 4 MG Piperacillin Sod/ Tazobactam Sod (Zosyn Per Pharmacy) 1 each PRN DAILY PRN 07/15/19 00:00 UNV Piperacillin Sod/ Tazobactam Sod 2.25 gm/Sodium Chloride 50 ml @ 100 mls/hr Q8HRS 07/14/19 22:00 07/17/19 08:40 DC 07/17/19 05:59 100 MLS/HR Piperacillin Sod/ Tazobactam Sod 3.375 gm/Sodium Chloride 50 ml @ 100 mls/hr Q6HRS 07/22/19 08:00 07/24/19 06:02 100 MLS/HR Potassium Chloride/Water 100 ml @ 100 mls/hr Q1H 07/16/19 11:30 07/16/19 14:29 DC 07/16/19 14:38 100 MLS/HR Saliva Substitute (Biotene Moisturizing Mouth) 2 spray PRN Q15MIN PRN 07/15/19 10:45 Sodium Bicarbonate 150 meq/Dextrose 1,150 ml @ 150 mls/hr Q7H40M 07/14/19 21:00 07/16/19 11:17 DC 07/16/19 00:46 150 MLS/HR Sodium Chloride 200 ml @ 50 mls/hr 1X ONCE 07/17/19 11:30 07/17/19 15:29 DC 07/17/19 11:26 50 MLS/HR Tramadol HCl (Ultram) 50 mg PRN Q6HRS PRN 07/21/19 10:45 07/23/19 15:28 50 MG Lab Laboratory Tests Test 07/24/19 06:00 07/24/19 06:30 07/24/19 09:57 Sodium Level 132 mmol/L (136-145) 131 mmol/L (136-145) Potassium Level 4.3 mmol/L (3.5-5.1) 4.5 mmol/L (3.5-5.1) Chloride Level 99 mmol/L (98-107) 98 mmol/L (98-107) Carbon Dioxide Level 21 mmol/L (21-32) 20 mmol/L (21-32) Anion Gap 12 (6-14) 13 (6-14) Blood Urea Nitrogen 20 mg/dL (7-20) 20 mg/dL (7-20) Creatinine 1.3 mg/dL (0.6-1.0) 1.4 mg/dL (0.6-1.0) Estimated GFR (Cockcroft-Gault) 40.4 37.1 Glucose Level 104 mg/dL (70-99) 137 mg/dL (70-99) Calcium Level 8.1 mg/dL (8.5-10.1) 8.2 mg/dL (8.5-10.1) White Blood Count 12.1 x10^3/uL (4.0-11.0) Red Blood Count 2.22 x10^6/uL (3.50-5.40) Hemoglobin 7.8 g/dL (12.0-15.5) Hematocrit 22.5 % (36.0-47.0) Mean Corpuscular Volume 101 fL (79-100) Mean Corpuscular Hemoglobin 35 pg (25-35) Mean Corpuscular Hemoglobin Concent 35 g/dL (31-37) Red Cell Distribution Width 13.5 % (11.5-14.5) Platelet Count 536 x10^3/uL (140-400) Creatine Kinase 21 U/L (26-192) Results All relevant outside records, renal labs, imaging studies, telemetry/EKG's were reviewed. BENI DOMINGUEZ MD Jul 24, 2019 11:22
--- NOTE | 2019-07-24 20:26 | NUR ---
Patient request Benadryl for sleep tonight. Spoke with Dr Moore at this time. Obtained orders for Benadryl 25mg po QHlS prn insomnia.
[2019-07-24] MEDS ORDERED: diphenhydrAMINE HCL 25 MG CAPSULE PO PRN (20:30)
[2019-07-24] MEDS: ALPRAZolam 0.5 MG TABLET PO PRN (20:32)
[2019-07-24] MEDS: traMADol 50 MG TABLET PO PRN (20:32)
[2019-07-24] MEDS: FAMOTIDINE 20 MG TABLET. PO SCH (20:32)
[2019-07-24] MEDS: PATCH REMOVAL. MC SCH (20:33)
--- NOTE | 2019-07-24 21:33 | NUR ---
Previous note is an error. Patient did not request Benadryl for sleep. This note was documented on wrong chart.
[2019-07-25] MEDS: ALPRAZolam 0.5 MG TABLET PO PRN ×2 (02:18→20:01)
[2019-07-25] MEDS: traMADol 50 MG TABLET PO PRN ×2 (02:18→20:01)
[2019-07-25 03:00] VITALS: BP 136/62
[2019-07-25] MEDS: PIPERACILLIN/TAZOBACTAM 3.375 GM in IV NORMAL SALINE 50ML 50 ML IV SCH ×4 (05:22→23:55)
[2019-07-25] MEDS: LEVOTHYROXINE 100 MCG TABLET PO SCH (05:22)
[2019-07-25] MEDS: ACETAMINOPHEN 325 MG TABLET. PO PRN ×3 (05:22→18:01)
[2019-07-25 06:07] LABS: BASO # 0.1 x10^3/uL (0.0-0.2); BASO % 1 % (0-3); EOS # 0.1 x10^3/uL (0.0-0.7); EOS % 1 % (0-3); HEMATOCRIT 21.8 % (36.0-47.0); HEMOGLOBIN 7.6 g/dL (12.0-15.5); LYMPH # 0.6 x10^3/uL (1.0-4.8); LYMPH % 7 % (24-48); MEAN CORPUSCULAR HEMOGLOBIN 35 pg (25-35); MEAN CORPUSCULAR HGB CONC 35 g/dL (31-37); MEAN CORPUSCULAR VOLUME 101 fL (79-100); MONO # 0.8 x10^3/uL (0.0-1.1); MONO % 9 % (0-9); NEUT # 7.2 x10^3/uL (1.8-7.7); NEUT % 82 % (31-73); PLATELET COUNT 582 x10^3/uL (140-400); RED BLOOD COUNT 2.17 x10^6/uL (3.50-5.40); RED CELL DISTRIBUTION WIDTH 13.4 % (11.5-14.5); WHITE BLOOD COUNT 8.9 x10^3/uL (4.0-11.0)
[2019-07-25 07:22] VITALS: BP 120/58
[2019-07-25] MEDS: LIDOCAINE (700MG/PATCH) PATCH. TD SCH (08:29)
[2019-07-25] MEDS: ASPIRIN ENTERIC COATED 81 MG TABLET.DR. PO SCH (08:33)
[2019-07-25] MEDS: LACTOBACILLUS RHAMNOSUS GG 1 CAPSULE. PO SCH ×2 (08:33→20:00)
[2019-07-25] MEDS: MICAFUNGIN 100 MG in IV DEXTROSE 5% 100ML 100 ML IV SCH (08:33)
[2019-07-25] MEDS: amLODIPine BESYLATE 10 MG TABLET PO SCH (08:34)
[2019-07-25] MEDS: METOPROLOL TART IMMED RELEASE 25 MG TABLET. PO SCH ×2 (08:34→20:01)
--- NOTE | 2019-07-25 08:40 | PN ---
DATE: 07/25/2019 SUBJECTIVE: The patient is resting, slightly propped up, still sleeping bed comfortably in no apparent distress. On questioning her, denied any complaint. PHYSICAL EXAMINATION: GENERAL: When I examined her, she was pale, but no jaundice, cyanosis or thyromegaly. No jugular venous distention. No lower limb edema. VITAL SIGNS: Her heart rate was 77, blood pressure 120/58, temperature was 98.8, respiratory rate was 18 and oxygen saturation was 93% on room air. HEAD, EYES, EARS, NOSE AND THROAT: Showed normocephalic, atraumatic. NECK: Supple. CARDIAC: Normal first and second heart sounds. No gallop or murmur. CHEST: Clear to auscultation. No crepitation or rhonchi. ABDOMEN: Distended, soft, nontender. NEUROLOGIC: She was awake, alert, responding appropriately. All cranial nerves intact. She moves extremities without difficulty. She ambulates with a walker. Her intake over the last 24 hours was 2070, output was 1150. LABORATORY DATA: As of this morning, her white cell count was 8900, hemoglobin 7.6, hematocrit 22, MCV 101 and platelet count of 582,000. Her chemistry still pending at the time of this dictation. ASSESSMENT: 1. Acute kidney injury, multifactorial. Her creatinine is down from 4.1 to 1.3. 2. Hyponatremia, improving. Her most recent serum sodium is up to 131. 3. She has other medical problems including: A. Hypertension. B. Leukopenia. C. Macrocytosis. D. She has an episode of atrial fibrillation with rapid ventricular response, treated with a bolus of Cardizem and since then she has been in sinus rhythm. E. Sepsis with growth of Escherichia coli in her blood and urine cultures for which she continues to be on IV antibiotic in the form of daptomycin, piperacillin/tazobactam as well as micafungin. PLAN: Obviously to continue with IV antibiotic. Continue with metoprolol to control the heart rate. Continue with levothyroxine for hypothyroidism, continue with physical and occupational therapy. Once she obviously completes her antibiotic therapy, she can be discharged to a half-way facility. GABRIEL REYES MD DR: ENRIQUE/jennyfer JOB#: [id number] / [id number]
--- NOTE | 2019-07-25 09:45 | PDOC ---
Infectious Disease Note Subjective Subjective Feeling alright this morning Eating No F/C/S/SOA/N/V ROS ROS per HPI Vital Sign Vital Signs Vital Signs Date Time Temp Pulse Resp B/P (MAP) Pulse Ox O2 Delivery O2 Flow Rate FiO2 07/25/19 08:34 120/58 07/25/19 08:34 82 07/25/19 08:02 Room Air 07/25/19 07:22 98.8 18 93 98.8 07/24/19 07:00 2.0 Physical Exam PHYSICAL EXAM GENERAL: Propped up in bed, alert, eating HENT: Oral cavity dry, dentures in place + ulcer LUNGS: CTA HEART: S1, S2. ABDOMEN: Soft, nontender : Kuo - out EXTREMITIES: Trace edema lower extremities bilaterally NEUROLOGIC: Alert, answers questions appropriately SKIN: Warm to tuouch, no rash Temp RIJ/HDC (07/16) without signs of complications Labs Lab Laboratory Tests Test 07/24/19 09:57 07/25/19 05:30 Sodium Level 131 mmol/L (136-145) Potassium Level 4.5 mmol/L (3.5-5.1) Chloride Level 98 mmol/L (98-107) Carbon Dioxide Level 20 mmol/L (21-32) Anion Gap 13 (6-14) Blood Urea Nitrogen 20 mg/dL (7-20) Creatinine 1.4 mg/dL (0.6-1.0) Estimated GFR (Cockcroft-Gault) 37.1 Glucose Level 137 mg/dL (70-99) Calcium Level 8.2 mg/dL (8.5-10.1) White Blood Count 8.9 x10^3/uL (4.0-11.0) Red Blood Count 2.17 x10^6/uL (3.50-5.40) Hemoglobin 7.6 g/dL (12.0-15.5) Hematocrit 21.8 % (36.0-47.0) Mean Corpuscular Volume 101 fL (79-100) Mean Corpuscular Hemoglobin 35 pg (25-35) Mean Corpuscular Hemoglobin Concent 35 g/dL (31-37) Red Cell Distribution Width 13.4 % (11.5-14.5) Platelet Count 582 x10^3/uL (140-400) Neutrophils (%) (Auto) 82 % (31-73) Lymphocytes (%) (Auto) 7 % (24-48) Monocytes (%) (Auto) 9 % (0-9) Eosinophils (%) (Auto) 1 % (0-3) Basophils (%) (Auto) 1 % (0-3) Neutrophils # (Auto) 7.2 x10^3/uL (1.8-7.7) Lymphocytes # (Auto) 0.6 x10^3/uL (1.0-4.8) Monocytes # (Auto) 0.8 x10^3/uL (0.0-1.1) Eosinophils # (Auto) 0.1 x10^3/uL (0.0-0.7) Basophils # (Auto) 0.1 x10^3/uL (0.0-0.2) CT A/P 1. Near complete resolution of intra-abdominal fluid collections with minimal residual fluid identified in the right infrahepatic space. 2. Decrease in small right trace left pleural effusions with improved aeration of the lung bases. There is persistent small right and trace left pleural effusion with adjacent compressive atelectasis. 3. There is a 3 mm solid noncalcified pulmonary nodule in the lingula. Optional one-year follow-up chest CT may be of benefit based on clinical risk factors per Fleischner 2017 pulmonary nodule guidelines. Micro Microbiology 07/17/19 Blood Culture - Preliminary, Resulted NO GROWTH AFTER 1 DAY 07/14. ([facility]) URINE CULT RES 1 Final Escherichia coli Antibiotic RSLT#1 Amoxicillin/Clavulanic Acid S<=2 Ampicillin S<=2 Cefepime S<=0.12 Ceftriaxone S<=0.25 Cefuroxime S =2 Ciprofloxacin S<=0.25 Ertapenem S<=0.12 Gentamicin S<=1 Imipenem S<=0.25 Levofloxacin S<=0.12 Meropenem S<=0.25 Nitrofurantoin S<=16 Piperacillin/Tazobactam S<=4 Tetracycline S<=1 Tobramycin S<=1 Trimethoprim/Sulfa S<=20 07/14. ([facility]) BLOOD CULTURE BLD CULT RESULT 1 Preliminary Gram negative rods Objective Assessment Fever - better - CT reviewed 07/22 with resolution. Procal elevated Sepsis from [facility] - Ecoli bacteremia 07/14 repeat 07/17 - neg Urinary tract infection. UC E coli (pansensitive) Leukocytosis with bandemia.- improved now abx changed 07/22, better Macrocytosis Acute kidney injury/acute tubular necrosis.- better Nausea, vomiting, and diarrhea, resolved. Severe hyponatremia with underlying history of chronic hyponatremia. Abnormal liver function tests - better. Right pyelocaliectasis. Thrombocytopenia - better Ascites Plan Plan of Care Blood and urine cults 07/22 neg so far Continue Dapto and Micafungin (07/24) and zosyn 07/22 (had been on Meropenem when WBC started to increase) Probiotics Monitor CBC /temp Continue supportive care. D/w Dr. Mai Patient seen and examined. Chart reviewed in detail. Case discussed with [employer]IVITIES AIDE. Agree with above plan BASIL MEREDITH APRN Jul 25, 2019 09:45 CRISTHIAN CRISTINA MD Jul 25, 2019 18:34
[2019-07-25] MEDS: DAPTOmycin (GENERIC) IVPB 400 MG in IV NORMAL SALINE 50ML 50 ML IV SCH (10:41)
[2019-07-25 10:42] VITALS: BP 123/58
[2019-07-25 14:24] VITALS: BP 113/55
[2019-07-25 19:34] VITALS: BP_SYST 131; BP_SYST 142; BP_DIAS 63; BP_DIAS 67
[2019-07-25] MEDS: FAMOTIDINE 20 MG TABLET. PO SCH (20:01)
[2019-07-25] MEDS: PATCH REMOVAL. MC SCH (20:01)
[2019-07-25 23:00] VITALS: BP 122/56
[2019-07-26] MEDS: ALPRAZolam 0.5 MG TABLET PO PRN ×2 (02:17→19:06)
[2019-07-26] MEDS: traMADol 50 MG TABLET PO PRN (02:17)
[2019-07-26 03:00] VITALS: BP 124/55
[2019-07-26] MEDS: LEVOTHYROXINE 100 MCG TABLET PO SCH (05:10)
[2019-07-26] MEDS: PIPERACILLIN/TAZOBACTAM 3.375 GM in IV NORMAL SALINE 50ML 50 ML IV SCH ×4 (05:10→23:42)
[2019-07-26] MEDS: ACETAMINOPHEN 325 MG TABLET. PO PRN ×3 (05:44→17:47)
[2019-07-26 06:11] LABS: CALCIUM 8.4 mg/dL (8.5-10.1); CREATININE 1.3 mg/dL (0.6-1.0); GFR 40.4; POTASSIUM 4.1 mmol/L (3.5-5.1)
[2019-07-26 06:49] LABS: HEMATOCRIT 21.5 % (36.0-47.0); HEMOGLOBIN 7.3 g/dL (12.0-15.5)
[2019-07-26 07:15] VITALS: BP 119/57
[2019-07-26] MEDS: LIDOCAINE (700MG/PATCH) PATCH. TD SCH (08:21)
[2019-07-26] MEDS: MICAFUNGIN 100 MG in IV DEXTROSE 5% 100ML 100 ML IV SCH (08:21)
[2019-07-26] MEDS: LACTOBACILLUS RHAMNOSUS GG 1 CAPSULE. PO SCH ×2 (08:22→20:21)
[2019-07-26] MEDS: amLODIPine BESYLATE 10 MG TABLET PO SCH (08:22)
[2019-07-26] MEDS: METOPROLOL TART IMMED RELEASE 25 MG TABLET. PO SCH ×2 (08:22→20:22)
[2019-07-26] MEDS: ASPIRIN ENTERIC COATED 81 MG TABLET.DR. PO SCH (08:23)
[2019-07-26] MEDS: DAPTOmycin (GENERIC) IVPB 400 MG in IV NORMAL SALINE 50ML 50 ML IV SCH (08:44)
--- NOTE | 2019-07-26 09:07 | PDOC ---
Infectious Disease Note Subjective Subjective Feelings good Up early, took a shower No fevers/N/V/D ROS ROS per HPI Vital Sign Vital Signs Vital Signs Date Time Temp Pulse Resp B/P (MAP) Pulse Ox O2 Delivery O2 Flow Rate FiO2 07/26/19 08:22 119/57 07/26/19 07:58 Room Air 07/26/19 07:15 99.6 81 20 94 99.6 07/25/19 19:34 Physical Exam PHYSICAL EXAM GENERAL: Sitting in the chair, alert, relaxed appearance HENT: Oral cavity dry, dentures, + ulcer LUNGS: CTA HEART: S1, S2. ABDOMEN: Soft, nontender : Kuo - out EXTREMITIES: No gross edema or cyanosis NEUROLOGIC: Alert, answers questions appropriately SKIN: Warm to touch, no rash Temp RIJ/HDC (07/16) without signs of complications Labs Lab Laboratory Tests Test 07/26/19 05:30 Hemoglobin 7.3 g/dL (12.0-15.5) Hematocrit 21.5 % (36.0-47.0) Sodium Level 130 mmol/L (136-145) Potassium Level 4.1 mmol/L (3.5-5.1) Chloride Level 98 mmol/L (98-107) Carbon Dioxide Level 20 mmol/L (21-32) Anion Gap 12 (6-14) Blood Urea Nitrogen 15 mg/dL (7-20) Creatinine 1.3 mg/dL (0.6-1.0) Estimated GFR (Cockcroft-Gault) 40.4 Glucose Level 96 mg/dL (70-99) Calcium Level 8.4 mg/dL (8.5-10.1) Micro Microbiology 07/17/19 Blood Culture - Preliminary, Resulted NO GROWTH AFTER 3 DAY 07/14. ([facility]) URINE CULT RES 1 Final Escherichia coli Antibiotic RSLT#1 Amoxicillin/Clavulanic Acid S<=2 Ampicillin S<=2 Cefepime S<=0.12 Ceftriaxone S<=0.25 Cefuroxime S =2 Ciprofloxacin S<=0.25 Ertapenem S<=0.12 Gentamicin S<=1 Imipenem S<=0.25 Levofloxacin S<=0.12 Meropenem S<=0.25 Nitrofurantoin S<=16 Piperacillin/Tazobactam S<=4 Tetracycline S<=1 Tobramycin S<=1 Trimethoprim/Sulfa S<=20 Objective Assessment Fever - better - CT reviewed 07/22 with resolution. Procal elevated Sepsis from [facility] - Ecoli bacteremia 07/14 ([facility]) repeat 07/17 & neg Urinary tract infection. UC E coli (pansensitive) Leukocytosis with bandemia.- improved now abx changed 07/22, better Macrocytosis Acute kidney injury/acute tubular necrosis.- better Nausea, vomiting, and diarrhea, resolved. Severe hyponatremia with underlying history of chronic hyponatremia. Abnormal liver function tests - better. Right pyelocaliectasis. Thrombocytopenia - better Ascites Plan Plan of Care Blood and urine cults 07/22 neg so far d/c Dapto continue Micafungin (07/24) and zosyn 07/22, wean soon Previously on Meropenem when WBC started to increase. Probiotics Monitor CBC /temp Continue supportive care. Anticipate discharge to SNF soon D/w Dr. Mai Patient seen and examined. Chart reviewed in detail. Case discussed with [employer]. Agree with above plan. BASIL MEREDITH APRN Jul 26, 2019 09:07 CRISTHIAN CRISTINA MD Jul 26, 2019 18:10
[2019-07-26 10:30] VITALS: BP 129/62
--- NOTE | 2019-07-26 12:11 | PDOC ---
SUBJECTIVE ROS Stable , feeling good , denies any complaints or concerns OBJECTIVE Vital Signs Vital Signs Date Time Temp Pulse Resp B/P (MAP) Pulse Ox O2 Delivery O2 Flow Rate FiO2 07/26/19 10:30 97.6 77 20 129/62 (84) 95 Room Air 97.6 07/25/19 19:34 I & 0 Intake and Output 07/26/19 07:00 Intake Total 750 ml Output Total 550 ml Balance 200 ml Intake Oral 700 ml IV Total 50 ml Output Urine Total 550 ml # Voids 5 # Bowel Movements 1 PHYSICAL EXAM Physical Exam GENERAL: NAD HENT: Oral cavity moist Lungs- CTA , Non labored HEART: S1, S2. regular ABDOMEN: Soft, BS present EXTREMITIES: Trace edema lower extremities bilaterally NEUROLOGIC: Alert, answers questions appropriately DIAGNOSIS/ASSESSMENT Assessment & Plan Acute kidney injury, dehydration Cr peaked at 4.1 to 1.3 , stable meloxicam and losartan dced CT scan Slight right pyelocaliectasis. No radiopaque collecting system calculus, No hydronephrosis K and bicarb stable Supportive care, Avoid Nephrotoxins, Chronic hyponatremia, stable , 119 at presentation , has been stable 128-130 on NAcl tabs at home Hypertension- stable Macrocytosis history, followed by an oncologist at [facility]. atrial fibrillation with rapid ventricular response, treated with Cardizem bolu s IV and converted to normal sinus rhythm. COMMENT/RELEVANT DATA Meds Current Medications Medications (Trade) Dose Ordered Sig/Saurabh Start Time Stop Time Status Last Admin Dose Admin Acetaminophen (Tylenol) 650 mg PRN Q4HRS PRN 07/15/19 10:45 07/26/19 05:44 650 MG Albuterol/ Ipratropium (Duoneb) 3 ml 1X ONCE 07/16/19 01:00 07/16/19 01:01 DC 07/16/19 00:59 3 ML Alprazolam (Xanax) 0.5 mg PRN Q6HRS PRN 07/15/19 21:45 07/26/19 02:17 0.5 MG Amlodipine Besylate (Norvasc) 10 mg 1X ONCE 07/19/19 22:30 07/19/19 22:31 DC 07/19/19 22:45 10 MG Aspirin (Ecotrin) 81 mg DAILYWBKFT 07/20/19 18:30 07/26/19 08:23 81 MG Ceftriaxone Sodium (Rocephin) 2 gm Q24H 07/21/19 08:00 07/22/19 07:01 DC 07/21/19 08:25 2 GM Daptomycin 390 mg/ Sodium Chloride 50 ml @ 100 mls/hr Q48H 07/15/19 14:00 07/16/19 08:27 DC 07/15/19 14:56 100 MLS/HR Daptomycin 400 mg/ Sodium Chloride 50 ml @ 100 mls/hr Q24H 07/22/19 09:00 07/26/19 09:06 DC 07/26/19 08:44 100 MLS/HR Digoxin (Lanoxin) 500 mcg STK-MED ONCE 07/19/19 10:33 07/19/19 10:33 DC Diltiazem HCl (Cardizem Iv Push) 25 mg STK-MED ONCE 07/19/19 06:43 07/19/19 06:43 DC Diltiazem HCl 125 mg/Dextrose 125 ml @ 5 mls/hr CONT PRN 07/19/19 07:00 07/25/19 14:33 DC 07/19/19 09:18 5 MLS/HR Diphenhydramine HCl (Benadryl) 25 mg PRN QHS PRN 07/24/19 20:30 Cancel Famotidine (Pepcid) 20 mg QHS 07/15/19 21:00 07/25/19 20:01 20 MG Furosemide (Lasix) 60 mg 1X ONCE 07/16/19 11:30 07/16/19 11:31 DC 07/16/19 11:40 60 MG Heparin Sodium (Porcine) (Hep Lock Adult) 2,800 unit Q12HR 07/16/19 21:00 07/17/19 15:35 DC Heparin Sodium (Porcine) (Heparin Sodium) 10,000 unit STK-MED ONCE 07/16/19 13:21 07/16/19 13:22 DC Heparin Sodium/ Sodium Chloride (HEPARIN for ARTERIAL LINE FLUSH) 1,000 unit 1X ONCE 07/16/19 13:45 07/16/19 13:46 DC Lactobacillus Rhamnosus (Culturelle) 1 cap BID 07/16/19 21:00 07/26/19 08:22 1 CAP Levothyroxine Sodium (Synthroid) 100 mcg DAILY06 07/15/19 06:00 07/26/19 05:10 100 MCG Lidocaine (Lidoderm) 1 patch DAILY 07/16/19 09:00 07/26/19 08:21 1 PATCH Lidocaine HCl (Buffered Lidocaine 1%) 3 ml 1X ONCE 07/16/19 13:45 07/16/19 13:46 DC 07/16/19 13:43 4 ML Linezolid/Dextrose 300 ml @ 300 mls/hr Q12HR 07/14/19 21:00 07/15/19 13:14 DC 07/15/19 09:23 300 MLS/HR Meropenem 500 mg/ Sodium Chloride 50 ml @ 100 mls/hr DAILY 07/17/19 09:00 07/20/19 15:32 DC 07/20/19 08:50 100 MLS/HR Metoprolol Tartrate (Lopressor) 25 mg BID 07/20/19 21:00 07/26/19 08:22 25 MG Micafungin Sodium 100 mg/Dextrose 100 ml @ 100 mls/hr Q24H 07/22/19 08:00 07/26/19 08:21 100 MLS/HR Miscellaneous (Lidoderm Patch Removal) 1 ea QHS 07/16/19 21:00 07/25/19 20:01 1 EA Ondansetron HCl (Zofran) 4 mg PRN Q4HRS PRN 07/14/19 22:30 07/15/19 15:00 4 MG Piperacillin Sod/ Tazobactam Sod (Zosyn Per Pharmacy) 1 each PRN DAILY PRN 07/15/19 00:00 UNV Piperacillin Sod/ Tazobactam Sod 2.25 gm/Sodium Chloride 50 ml @ 100 mls/hr Q8HRS 07/14/19 22:00 07/17/19 08:40 DC 07/17/19 05:59 100 MLS/HR Piperacillin Sod/ Tazobactam Sod 3.375 gm/Sodium Chloride 50 ml @ 100 mls/hr Q6HRS 07/22/19 08:00 07/26/19 05:10 100 MLS/HR Potassium Chloride/Water 100 ml @ 100 mls/hr Q1H 07/16/19 11:30 07/16/19 14:29 DC 07/16/19 14:38 100 MLS/HR Saliva Substitute (Biotene Moisturizing Mouth) 2 spray PRN Q15MIN PRN 07/15/19 10:45 Sodium Bicarbonate 150 meq/Dextrose 1,150 ml @ 150 mls/hr Q7H40M 07/14/19 21:00 07/16/19 11:17 DC 07/16/19 00:46 150 MLS/HR Sodium Chloride 200 ml @ 50 mls/hr 1X ONCE 07/17/19 11:30 07/17/19 15:29 DC 07/17/19 11:26 50 MLS/HR Tramadol HCl (Ultram) 50 mg PRN Q6HRS PRN 07/21/19 10:45 07/26/19 02:17 50 MG Lab Laboratory Tests Test 07/26/19 05:30 Hemoglobin 7.3 g/dL (12.0-15.5) Hematocrit 21.5 % (36.0-47.0) Sodium Level 130 mmol/L (136-145) Potassium Level 4.1 mmol/L (3.5-5.1) Chloride Level 98 mmol/L (98-107) Carbon Dioxide Level 20 mmol/L (21-32) Anion Gap 12 (6-14) Blood Urea Nitrogen 15 mg/dL (7-20) Creatinine 1.3 mg/dL (0.6-1.0) Estimated GFR (Cockcroft-Gault) 40.4 Glucose Level 96 mg/dL (70-99) Calcium Level 8.4 mg/dL (8.5-10.1) Results All relevant outside records, renal labs, imaging studies, telemetry/EKG's were reviewed. BENI DOMINGUEZ MD Jul 26, 2019 12:11
--- NOTE | 2019-07-26 12:54 | PN ---
DATE: 07/26/2019 SUBJECTIVE: The patient is sitting in her chair, eating breakfast comfortably, in no apparent distress. On questioning her, she denied any complaint. The nursing staff did not voice any concern and stated that she had an uneventful night. She has been more awake, alert, has been participating with physical therapy. We took her catheter out. Her serum sodium has improved from 119 to 130. Creatinine came down from 4.1 to 1.3. Her blood cultures done at [facility] showed growth of Escherichia coli sensitive to oral antibiotic. Her blood cultures also showed growth of Gram-negative rods. All her blood culture and urine culture done at [facility] are so far negative. OBJECTIVE: GENERAL: When I examined her, she looked well and was clearly in no apparent respiratory distress, pale. No jaundice, cyanosis, or thyromegaly. No jugular venous distention. No lower limb edema. VITAL SIGNS: Her heart rate was 81, blood pressure was 119/57, temperature was 99.6, respiratory rate 20, and oxygen saturation was 94%. Her intake over the last 24 hours was 560 and output was 600 as of this morning. HEENT: Normocephalic, atraumatic. NECK: Supple. HEART: Showed normal first and second heart sounds. No gallop or murmur. CHEST: Clear to auscultation. No crepitation or rhonchi. ABDOMEN: Distended, soft, nontender. NEUROLOGIC: She is definitely more awake, alert, responding appropriately. All cranial nerves are intact. She moves extremities without difficulty. LABORATORY DATA: Her serum sodium was 130, potassium 4.1, chloride 98, bicarbonate 20, anion gap of 12, BUN 15, and creatinine 1.3. Estimated GFR was 40 mL per minute. Her glucose was 96 and calcium was 8.4. Her hemoglobin and hematocrit are 7.3 and 21.5. ASSESSMENT AND PLAN: 1. Acute kidney injury, multifactorial, resolved. Her creatinine came down from 4.1 to 1.3. 2. Hyponatremia, improving. Her most recent serum sodium is up to 131 mEq per liter. 3. She has multiple other medical problems including: A. Hypertension. B. Leukopenia. C. Macrocytosis. 4. She had an episode of atrial fibrillation with rapid ventricular response, treated with a bolus of Cardizem and since then, she has been in sinus rhythm. 5. Sepsis with growth of Escherichia coli in her blood and urine culture for which she continues to be on intravenous antibiotic. She continues to be on intravenous daptomycin and piperacillin/tazobactam as well as micafungin. GABRIEL REYES MD DR: ENRIQUE/jennyfer JOB#: [id number] / [id number]
[2019-07-26 14:30] VITALS: BP 102/57
[2019-07-26 19:00] VITALS: BP 132/63
[2019-07-26] MEDS: FAMOTIDINE 20 MG TABLET. PO SCH (20:21)
[2019-07-26] MEDS: PATCH REMOVAL. MC SCH (21:00)
[2019-07-26 23:00] VITALS: BP 152/73
[2019-07-27] MEDS: ACETAMINOPHEN 325 MG TABLET. PO PRN ×3 (01:39→20:21)
[2019-07-27 03:00] VITALS: BP 143/68
[2019-07-27] MEDS: LEVOTHYROXINE 100 MCG TABLET PO SCH (05:13)
[2019-07-27] MEDS: PIPERACILLIN/TAZOBACTAM 3.375 GM in IV NORMAL SALINE 50ML 50 ML IV SCH (05:13)
[2019-07-27 05:35] LABS: HEMATOCRIT 22.8 % (36.0-47.0); HEMOGLOBIN 7.8 g/dL (12.0-15.5); RED BLOOD COUNT 2.26 x10^6/uL (3.50-5.40); RED CELL DISTRIBUTION WIDTH 13.7 % (11.5-14.5); WHITE BLOOD COUNT 6.9 x10^3/uL (4.0-11.0)
[2019-07-27 05:44] LABS: ALBUMIN 1.9 g/dL (3.4-5.0); ALBUMIN/GLOBULIN RATIO 0.4 (1.0-1.7); CALCIUM 8.1 mg/dL (8.5-10.1); CREATININE 1.3 mg/dL (0.6-1.0); GFR 40.4; TOTAL BILIRUBIN 0.4 mg/dL (0.2-1.0); TOTAL PROTEIN 6.5 g/dL (6.4-8.2)
[2019-07-27 07:00] VITALS: BP 140/64
--- NOTE | 2019-07-27 07:51 | PDOC ---
Infectious Disease Note Subjective Subjective Feelings good Up early, took a shower ALEX JOHNSON diarrhea + Vital Sign Vital Signs Vital Signs Date Time Temp Pulse Resp B/P (MAP) Pulse Ox O2 Delivery O2 Flow Rate FiO2 07/27/19 03:00 100.0 81 20 143/68 (93) 96 Room Air 100.0 Physical Exam PHYSICAL EXAM GENERAL: Sitting in the chair, alert, relaxed appearance HENT: Oral cavity dry, dentures, + ulcer LUNGS: CTA HEART: S1, S2. ABDOMEN: Soft, nontender : Kuo - out EXTREMITIES: No gross edema or cyanosis NEUROLOGIC: Alert, answers questions appropriately SKIN: Warm to touch, no rash Temp RIJ/HDC (07/16) without signs of complications Labs Lab Laboratory Tests Test 07/27/19 05:25 White Blood Count 6.9 x10^3/uL (4.0-11.0) Red Blood Count 2.26 x10^6/uL (3.50-5.40) Hemoglobin 7.8 g/dL (12.0-15.5) Hematocrit 22.8 % (36.0-47.0) Mean Corpuscular Volume 101 fL (79-100) Mean Corpuscular Hemoglobin 34 pg (25-35) Mean Corpuscular Hemoglobin Concent 34 g/dL (31-37) Red Cell Distribution Width 13.7 % (11.5-14.5) Platelet Count 690 x10^3/uL (140-400) Sodium Level 131 mmol/L (136-145) Potassium Level 4.0 mmol/L (3.5-5.1) Chloride Level 100 mmol/L (98-107) Carbon Dioxide Level 20 mmol/L (21-32) Anion Gap 11 (6-14) Blood Urea Nitrogen 13 mg/dL (7-20) Creatinine 1.3 mg/dL (0.6-1.0) Estimated GFR (Cockcroft-Gault) 40.4 BUN/Creatinine Ratio 10 (6-20) Glucose Level 99 mg/dL (70-99) Calcium Level 8.1 mg/dL (8.5-10.1) Total Bilirubin 0.4 mg/dL (0.2-1.0) Aspartate Amino Transf (AST/SGOT) 25 U/L (15-37) Alanine Aminotransferase (ALT/SGPT) 30 U/L (14-59) Alkaline Phosphatase 97 U/L (46-116) Total Protein 6.5 g/dL (6.4-8.2) Albumin 1.9 g/dL (3.4-5.0) Albumin/Globulin Ratio 0.4 (1.0-1.7) Micro Microbiology 07/22/19 Urine Culture - Final, Complete 07/22/19 Urine Culture Result 1 (CARINE) - Final, Complete 07/22/19 Blood Culture - Preliminary, Resulted NO GROWTH AFTER 4 DAYS Objective Assessment Fever - better - CT reviewed 07/22 with resolution. Procal elevated Sepsis from [facility] - Ecoli bacteremia 07/14 ([facility]) repeat 07/17 & neg Urinary tract infection. UC E coli (pansensitive) Leukocytosis with bandemia.- improved now abx changed 07/22, better Acute kidney injury/acute tubular necrosis.- better Nausea, vomiting, and diarrhea, resolved. Severe hyponatremia with underlying history of chronic hyponatremia. Abnormal liver function tests - better. Right pyelocaliectasis. Plan Plan of Care cholestyramine change antibiotics to po augmentin supportive care d/c JUD Cabral MD Jul 27, 2019 07:51
[2019-07-27] MEDS: CHOLESTYRAMINE/ASPARTAME 4 GM PACKET PO SCH ×2 (09:18→20:24)
[2019-07-27] MEDS: LACTOBACILLUS RHAMNOSUS GG 1 CAPSULE. PO SCH ×2 (09:18→20:20)
[2019-07-27] MEDS: AMOXICILLIN/K CLAV 875/125MG TABLET. PO SCH ×2 (09:18→20:20)
[2019-07-27] MEDS: METOPROLOL TART IMMED RELEASE 25 MG TABLET. PO SCH ×2 (09:19→20:23)
[2019-07-27] MEDS: amLODIPine BESYLATE 10 MG TABLET PO SCH (09:19)
[2019-07-27] MEDS: LIDOCAINE (700MG/PATCH) PATCH. TD SCH (09:32)
--- NOTE | 2019-07-27 10:26 | PDOC ---
Renal-Progress Notes Subjective Notes Notes BETTER History of Present Illness Hx of present illness IMPROVED Vitals Vitals Vital Signs Date Time Temp Pulse Resp B/P (MAP) Pulse Ox O2 Delivery O2 Flow Rate FiO2 07/27/19 09:19 83 140/64 07/27/19 07:50 Room Air 07/27/19 07:00 98.0 20 97 98.0 Weight Weight [ ] I.O. Intake and Output Intake and Output 07/27/19 07:00 Intake Total 1600 ml Balance 1600 ml Intake Oral 1600 ml # Voids 2 Labs Labs Laboratory Tests Test 07/27/19 05:25 White Blood Count 6.9 x10^3/uL (4.0-11.0) Red Blood Count 2.26 x10^6/uL (3.50-5.40) Hemoglobin 7.8 g/dL (12.0-15.5) Hematocrit 22.8 % (36.0-47.0) Mean Corpuscular Volume 101 fL (79-100) Mean Corpuscular Hemoglobin 34 pg (25-35) Mean Corpuscular Hemoglobin Concent 34 g/dL (31-37) Red Cell Distribution Width 13.7 % (11.5-14.5) Platelet Count 690 x10^3/uL (140-400) Sodium Level 131 mmol/L (136-145) Potassium Level 4.0 mmol/L (3.5-5.1) Chloride Level 100 mmol/L (98-107) Carbon Dioxide Level 20 mmol/L (21-32) Anion Gap 11 (6-14) Blood Urea Nitrogen 13 mg/dL (7-20) Creatinine 1.3 mg/dL (0.6-1.0) Estimated GFR (Cockcroft-Gault) 40.4 BUN/Creatinine Ratio 10 (6-20) Glucose Level 99 mg/dL (70-99) Calcium Level 8.1 mg/dL (8.5-10.1) Total Bilirubin 0.4 mg/dL (0.2-1.0) Aspartate Amino Transf (AST/SGOT) 25 U/L (15-37) Alanine Aminotransferase (ALT/SGPT) 30 U/L (14-59) Alkaline Phosphatase 97 U/L (46-116) Total Protein 6.5 g/dL (6.4-8.2) Albumin 1.9 g/dL (3.4-5.0) Albumin/Globulin Ratio 0.4 (1.0-1.7) Micro Micro Microbiology 07/22/19 Urine Culture - Final, Complete 07/22/19 Urine Culture Result 1 (CARINE) - Final, Complete 07/22/19 Blood Culture - Preliminary, Resulted NO GROWTH AFTER 4 DAYS Review of Systems Constitutional: yes: weakness, alert, oriented Ears/Nose/Throat: Yes: no symptom reported Eyes: Yes: no symptom reported Pulmonary: Yes dyspnea Cardiovascular: Yes no symptom reported Gastrointestional: Yes: nausea, vomiting, diarrhea Genitourinary: Yes: no symptom reported Musculoskeletal: Yes: shoulder pain Skin: Yes no symptom reported Psychiatric/Neurological: Yes: no symptom reported Endocrine: Yes: no symptom reported Hematologic/Lymphatic: Yes: no symptom reported Physical Exam General Appearance: no apparent distress Skin: warm Respiratory: decreased breath sounds Heart: S1S2, RRR Abdomen: soft, bowel sounds present Genitourinary: bladder flat Extremities: pulses present, no edema, atrophy Neurology: alert, oriented, follow commands Musculoskeletal: Osteoarthritis Assessment Assessment IMP [id number] RESOLVED FROM CR OF 4.1 TO 1.3 HYPOKALEMIA-RESOLVED SEPSIS-IMPROVED HYPOTENSION-RESOLVED SEVERE HYPONATREMIA-NA OF 125-BETTER CHRONIC HYPONATREMIA-WAS BEING TX WITH NA TABLETS-LAST NA OF 136 OP MET ACIDOSIS-RESOLVED LEUCOCYTOSIS-BETTER PLAN CONT HOLDING HOME MEDS MOBIC AND LOSARTAN ON PO ANTIBIOTICS LINE BEING D/ISA NA OF 131 IS GOOD FOR HER-HAS CHRONIC HYPONATREMIA WILL SIGN OFF PLEASE CALL IF NEEDED BAKARI NORRIS MD Jul 27, 2019 10:26
[2019-07-27 11:00] VITALS: BP 140/62
--- NOTE | 2019-07-27 11:49 | PN ---
DATE: SUBJECTIVE: The patient is sitting up, eating her breakfast comfortably, in no apparent distress. On questioning her, denied any complaint. The nursing staff did not voice any concerns that she had generally uneventful night. She did have a low-grade fever this morning at about 100. She was seen in consultation by the Infectious Disease and switched her antibiotic to be taken orally with a plan to remove the temporary hemodialysis catheter. PHYSICAL EXAMINATION: GENERAL: When I examined her this morning, she looked pale, no jaundice, cyanosis or thyromegaly. No jugular venous distention. No limb edema. VITAL SIGNS: Her heart rate was 83, blood pressure 140/64, temperature was 98, respiratory rate 20, and oxygen saturation was 97%. HEAD, EYES, EARS, NOSE AND THROAT: Showed normocephalic, atraumatic. NECK: Supple. HEART: Showed normal first and second heart sounds. No gallop or murmur. CHEST: Clear to auscultation. No crepitation or rhonchi. ABDOMEN: Slightly distended, soft, nontender. NEUROLOGIC: She is definitely more awake, alert, responding appropriately. All cranial nerves intact. She moves all extremities without difficulty. She ambulates with a walker. Her intake was 750, output was 550. LABORATORY DATA: Her lab work this morning showed a serum sodium 131, potassium 4, chloride 100, bicarbonate 20, anion gap of 11, BUN 30, creatinine 1.3, estimated GFR was 40 mL per minute. Her glucose was 99, calcium was 8.1. Total bilirubin, AST, ALT, alkaline phosphatase were normal. Total protein 6.5, albumin was 1.9. White cell count is down to 6900, hemoglobin 7.8, hematocrit 22, MCV 101 and platelet count of 690,000. Her urinalysis was unremarkable. So far, all her urine and blood cultures done at [facility] are negative. She did grow Escherichia coli from her blood and urine culture. ASSESSMENT: 1. Acute kidney injury, multifactorial. Her creatinine came down from 4.1-1.3 and has been stable. 2. Hyponatremia, resolved. Her serum sodium has risen from 119 to 131. 3. Sepsis with growth of Escherichia coli in blood and urine culture at [facility] for which she has been treated with IV daptomycin, piperacillin/tazobactam, micafungin. OTHER MEDICAL PROBLEMS: Include: A. Hypertension. B. Leukopenia. C. Macrocytosis. An episode of atrial fibrillation with rapid ventricular response, treated with bolus of Cardizem and since then she has been in sinus rhythm. PLAN: To continue now to remove the temporary hemodialysis catheter. Continue with oral Augmentin and all other medication. She remained stable and afebrile. By tomorrow she will be discharged to a care home facility. GABRIEL REYES MD DR: ENRIQUE/jennyfer JOB#: [id number] / [id number]
[2019-07-27] MEDS: ASPIRIN ENTERIC COATED 81 MG TABLET.DR. PO SCH (12:03)
--- NOTE | 2019-07-27 13:40 | PDOC ---
CARDIO Progress Notes Date and Time Date of Service 07/27/19 Time of Evaluation 1310 Subjective Subjective: No Chest Pain, No shortness of breath, No Palpitations Vitals Vitals Vital Signs Date Time Temp Pulse Resp B/P (MAP) Pulse Ox O2 Delivery O2 Flow Rate FiO2 07/27/19 11:00 98.6 85 20 140/62 (88) 94 Room Air 98.6 Weight Weight [ ] Input and Output Intake and Output Intake and Output 07/27/19 07:00 Intake Total 1600 ml Balance 1600 ml Intake Oral 1600 ml # Voids 2 Laboratory Labs Laboratory Tests Test 07/27/19 05:25 White Blood Count 6.9 x10^3/uL (4.0-11.0) Red Blood Count 2.26 x10^6/uL (3.50-5.40) Hemoglobin 7.8 g/dL (12.0-15.5) Hematocrit 22.8 % (36.0-47.0) Mean Corpuscular Volume 101 fL (79-100) Mean Corpuscular Hemoglobin 34 pg (25-35) Mean Corpuscular Hemoglobin Concent 34 g/dL (31-37) Red Cell Distribution Width 13.7 % (11.5-14.5) Platelet Count 690 x10^3/uL (140-400) Sodium Level 131 mmol/L (136-145) Potassium Level 4.0 mmol/L (3.5-5.1) Chloride Level 100 mmol/L (98-107) Carbon Dioxide Level 20 mmol/L (21-32) Anion Gap 11 (6-14) Blood Urea Nitrogen 13 mg/dL (7-20) Creatinine 1.3 mg/dL (0.6-1.0) Estimated GFR (Cockcroft-Gault) 40.4 BUN/Creatinine Ratio 10 (6-20) Glucose Level 99 mg/dL (70-99) Calcium Level 8.1 mg/dL (8.5-10.1) Total Bilirubin 0.4 mg/dL (0.2-1.0) Aspartate Amino Transf (AST/SGOT) 25 U/L (15-37) Alanine Aminotransferase (ALT/SGPT) 30 U/L (14-59) Alkaline Phosphatase 97 U/L (46-116) Total Protein 6.5 g/dL (6.4-8.2) Albumin 1.9 g/dL (3.4-5.0) Albumin/Globulin Ratio 0.4 (1.0-1.7) Microbiology Micro Microbiology 07/22/19 Urine Culture - Final, Complete 07/22/19 Urine Culture Result 1 (CARINE) - Final, Complete 07/22/19 Blood Culture - Final, Complete NO GROWTH AFTER 5 DAYS Review of Systems Constitutional: yes: weakness, alert, oriented Ears/Nose/Throat: Yes: no symptom reported Eyes: Yes: no symptom reported Pulmonary: Yes dyspnea Cardiovascular: Yes no symptom reported Gastrointestional: Yes: nausea, vomiting, diarrhea Genitourinary: Yes: no symptom reported Musculoskeletal: Yes: shoulder pain Skin: Yes no symptom reported Psychiatric/Neurological: Yes: no symptom reported Endocrine: Yes: no symptom reported Hematologic/Lymphatic: Yes: no symptom reported Physical Exam HEENT: Neck Supple W Full Motion Chest: Symmetric LUNGS: Other (dimnished bases) Heart: S1S2, RRR (SR with PACs) Abdomen: Soft N/T Extremities: No Edema Neurology: alert, oriented, follow commands Assessment Assessment 1. PAFIB. brief paroxysms, otherwise maintaining SR. 2. UTI, sepsis, bacteremia. As per ID 3. Leukocytosis 4. LEONIDAS : prerenal, nephrology following. ARB on hold. improved. 5. Hyponatremia; chronic: Na better 6. Macrocytic Anemia: Hgb 7.8 Recommendations Continue metoprolol. ASA 81 Will arrange for outpt event monitor and note AFIB burden for NOAC consideration. F/u with NADINE Monk APRN Jul 27, 2019 13:40
[2019-07-27 15:00] VITALS: BP 129/60
[2019-07-27 19:15] VITALS: BP 150/66
[2019-07-27] MEDS: ALPRAZolam 0.5 MG TABLET PO PRN (20:20)
[2019-07-27] MEDS: FAMOTIDINE 20 MG TABLET. PO SCH (20:24)
[2019-07-27] MEDS: PATCH REMOVAL. MC SCH (20:24)
[2019-07-27 22:04] VITALS: BP 122/58
[2019-07-28 02:09] VITALS: BP 136/62
[2019-07-28] MEDS: LEVOTHYROXINE 100 MCG TABLET PO SCH (03:59)
[2019-07-28] MEDS: traMADol 50 MG TABLET PO PRN (03:59)
[2019-07-28 07:11] VITALS: BP 149/72
--- NOTE | 2019-07-28 07:27 | PDOC ---
Infectious Disease Note Subjective Subjective Feelings good ROS ROS no n/v/d/sob Vital Sign Vital Signs Vital Signs Date Time Temp Pulse Resp B/P (MAP) Pulse Ox O2 Delivery O2 Flow Rate FiO2 07/28/19 07:11 98.6 82 18 149/72 (97) 97 Room Air 98.6 07/28/19 04:59 2.0 Physical Exam PHYSICAL EXAM GENERAL: Sitting in the chair, alert, relaxed appearance HENT: Oral cavity dry, dentures, + ulcer LUNGS: CTA HEART: S1, S2. ABDOMEN: Soft, nontender : Kuo - out EXTREMITIES: No gross edema or cyanosis NEUROLOGIC: Alert, answers questions appropriately SKIN: Warm to touch, no rash Temp RIJ/HDC (07/16) without signs of complications Labs Micro Microbiology 07/22/19 Urine Culture - Final, Complete 07/22/19 Urine Culture Result 1 (CARINE) - Final, Complete 07/22/19 Blood Culture - Preliminary, Resulted NO GROWTH AFTER 4 DAYS Objective Assessment Fever - better - CT reviewed 07/22 with resolution. Procal elevated Sepsis from [facility] - Ecoli bacteremia 07/14 ([facility]) repeat 07/17 & neg Urinary tract infection. UC E coli (pansensitive) Leukocytosis with bandemia.- improved now abx changed 07/22, better Acute kidney injury/acute tubular necrosis.- better Nausea, vomiting, and diarrhea, resolved. Severe hyponatremia with underlying history of chronic hyponatremia. Abnormal liver function tests - better. Right pyelocaliectasis. Plan Plan of Care cholestyramine po augmentin for 5 more days supportive care ok to d/c d/w JUD Cunningham MD Jul 28, 2019 07:27
[2019-07-28] MEDS ORDERED: CHOL4POW11 PO (07:54)
[2019-07-28] MEDS ORDERED: LACT1POW11 PO (07:54)
[2019-07-28] MEDS ORDERED: ALPR0.5T6 PO (07:54)
[2019-07-28] MEDS ORDERED: AMOX1TAB61 PO (07:54)
[2019-07-28] MEDS ORDERED: METO25TA4 PO (07:54)
[2019-07-28] MEDS ORDERED: SALI44.3 MM (07:54)
[2019-07-28] MEDS ORDERED: ASPI-630 PO (07:54)
--- NOTE | 2019-07-28 07:56 | SNU/HH DC ---
DISCHARGE ORDERS DISCHARGE INFORMATION: DISCHARGE DATE: Jul 28, 2019 FINAL DIAGNOSIS E Coli Bacteremia Acute Kidney Injury CONDITION ON DISCHARGE: Stable CODE STATUS: Code Status: Full HALF-WAY: SNF STAY <30 DAYS: Yes POST DISCHARGE ORDERS: ACTIVITY ORDERS: Activity as tolerated DIET AFTER DISCHARGE: Regular TREATMENT/EQUIPMENT ORDERS: Physical Therapy For: Evalulation/Treatment Occupational Therapy For: Evaluation/Treatment DISCHARGE MEDICATIONS: Home Meds Active Scripts Saliva Stimulant Agents Comb.3 (BIOTENE MOISTURIZING MOUTH) 44.3 Ml [place], 44.3 ML MM Q2H for dry mouth for 30 Days, SPRAY Prov:GABRIEL REYES MD 07/28/19 Aspirin (ASPIRIN) 81 Mg Tab.chew, 1 TAB PO DAILY for cad for 30 Days, #30 TAB 3 Refills Prov:GABRIEL REYES MD 07/28/19 Lactobacillus Rhamnosus GG ([employer] Kids) 1 Each Powd.pack, 1 PACKET PO BID for c diff for 30 Days, #60 PACKET 0 Refills Prov:GABRIEL REYES MD 07/28/19 Alprazolam (ALPRAZOLAM) 0.5 Mg Tablet, 1 TAB PO Q6H for anxiety for 30 Days, #120 TAB Prov:GABRIEL REYES MD 07/28/19 Metoprolol Tartrate (METOPROLOL TARTRATE) 25 Mg Tablet, 1 TAB PO BID for afib for 30 Days, #60 TAB 1 Refill Prov:GABRIEL REYES MD 07/28/19 Amoxicillin/Potassium Clav (AUGMENTIN 875-125 TABLET) 1 Each Tablet, 1 TAB PO BI D for e coli for 7 Days, #14 TAB 0 Refills Prov:GABRIEL REYES MD 07/28/19 Cholestyramine (With Sugar) (QUESTRAN PACKET) 4 Gm Powd.pack, 4 GM PO BID for diarrhea for 30 Days, #60 PKT Prov:GABRIEL REYES MD 07/28/19 Reported Medications Levothyroxine Sodium (SYNTHROID) 100 Mcg Tablet, 1 TAB PO DAILY for Hypothyroid, #30 TAB 5 Refills 07/14/19 Ranitidine Hcl (RANITIDINE HCL) 150 Mg Capsule, 150 MG PO DAILY for GERD, TAB 07/14/19 Tramadol Hcl (TRAMADOL HCL) 50 Mg Tablet, 50 MG PO Q4HRS PRN for PAIN, TAB 07/14/19 Amlodipine Besylate (AMLODIPINE BESYLATE) 10 Mg Tablet, 10 MG PO DAILY for HTN, TAB 07/14/19 Discontinued Reported Medications Chlorpheniramine Maleate (CHLORPHENIRAMINE MALEATE) 4 Mg Tablet, 1 TAB PO Q4HRS for Sinus Congestion for 3 Days, #18 TAB 0 Refills 07/14/19 Meloxicam (MELOXICAM) 7.5 Mg Tablet, 1 TAB PO DAILY for arthritis for 30 Days, #30 TAB 0 Refills 07/14/19 Losartan Potassium (LOSARTAN POTASSIUM) 100 Mg Tablet, 100 MG PO DAILY for HYPERTENSION, TAB 07/14/19 GABRIEL REYES MD Jul 28, 2019 07:56
[2019-07-28] MEDS: CHOLESTYRAMINE/ASPARTAME 4 GM PACKET PO SCH ×2 (08:41→20:29)
[2019-07-28] MEDS: METOPROLOL TART IMMED RELEASE 25 MG TABLET. PO SCH ×2 (08:42→20:29)
[2019-07-28] MEDS: AMOXICILLIN/K CLAV 875/125MG TABLET. PO SCH ×2 (08:42→20:28)
[2019-07-28] MEDS: LIDOCAINE (700MG/PATCH) PATCH. TD SCH (08:42)
[2019-07-28] MEDS: ASPIRIN ENTERIC COATED 81 MG TABLET.DR. PO SCH (08:43)
[2019-07-28] MEDS: LACTOBACILLUS RHAMNOSUS GG 1 CAPSULE. PO SCH ×2 (08:43→20:28)
[2019-07-28] MEDS: amLODIPine BESYLATE 10 MG TABLET PO SCH (08:43)
--- NOTE | 2019-07-28 09:27 | DS ---
DATE OF DISCHARGE: HOSPITAL COURSE: The patient is a 69-year-old female patient who was originally seen at [facility] with acute kidney injury and UTI. Her kidney function has steadily deteriorated such that her creatinine had peaked at 4.1. She did grow Escherichia coli in her blood and urine culture and was treated with IV antibiotic. She was in the ICU. She had had temporary dialysis catheter placed; however, her kidney function has steadily improved and did not require any hemodialysis. Eventually, her urine and blood culture has grown Escherichia coli, that was sensitive to Zosyn and her antibiotics were discontinued as IV antibiotic was switched to oral. She did have also chronic hyponatremia; however, her serum sodium has steadily improved such that her serum sodium has risen from 119 up to 131. Her thyroid function test was normal. Her morning cortisol was also normal. Initially has excluding the possibility of hypothyroidism and/or Bremer's disease as the cause of her chronic hyponatremia. When I saw her this morning, she was resting flat, comfortably in bed, in no apparent distress. Complaining of weakness in her muscles, but denied any other complaint. PHYSICAL EXAMINATION: GENERAL: When I examined her, she was pale, but no jaundice, cyanosis or thyromegaly. No jugular venous distension. No limb edema. VITAL SIGNS: Her heart rate was 82, blood pressure was 149/72, temperature was 98.6, respiratory rate was 18 and oxygen saturation was 97%. HEAD, EYES, EARS, NOSE AND THROAT: Showed normocephalic, atraumatic. NECK: Supple. HEART: Showed normal first and second heart sounds with no gallop or murmur. CHEST: Clear to auscultation. No crepitation or rhonchi. ABDOMEN: Distended, soft, nontender. NEUROLOGIC: She is awake, alert, responding appropriately. All cranial nerves intact. EXTREMITIES: She moves extremities without difficulty. She ambulates with a walker. Her intake was 1600, no output was recorded. LABORATORY DATA: Showed a serum sodium 131, potassium 4, chloride 100, bicarbonate 20, anion gap of 11, BUN 13, creatinine 1.3, estimated GFR was 40 mL per minute. Her glucose was 99, calcium was 8.1. Total bilirubin, AST, ALT, alkaline phosphatase were normal. Total protein 6.5, albumin was 1.9. Her white cell count was 6900, hemoglobin 7.8, hematocrit 22.8, MCV 101 and platelet count of 690,000. DISCHARGE MEDICATIONS: The patient was discharged to [facility] to continue the process of rehabilitation. Continue on following medications: Alprazolam 0.5 mg every 6 hours as needed, amoxicillin/potassium clavulanate for Augmentin 875/125 one tablet twice a day with food for 7 more days, aspirin 81 mg once a day, cholestyramine 4 grams twice a day, lactobacillus rhamnosus 1 capsule twice a day, metoprolol tartrate 25 mg twice a day, saliva stimulant as needed every 2 hours, amlodipine besylate 10 mg once a day, levothyroxine sodium for Synthroid 100 mcg once a day, ranitidine 150 mg once a day and tramadol 50 mg every 4 hours as needed. FINAL DISCHARGE DIAGNOSES: 1. Escherichia coli bacteremia, resolved. The patient treated with IV daptomycin, piperacillin, tazobactam and micafungin. She is now on oral Augmentin. 2. Acute kidney injury, multifactorial. Her creatinine has peaked to 4.1 and came down to 1.3 and has been stable. 3. Hyponatremia, resolved. Her most recent serum sodium is up to 131 from 119. 4. Other medical problems include: A. Hypertension. B. Leukopenia. C. Macrocytosis. 5. The patient has one episode of atrial fibrillation with rapid ventricular response that has responded to a bolus of Cardizem and she is now on metoprolol 25 mg twice a day and maintaining her sinus rhythm. GABRIEL REYES MD DR: ENRIQUE/jennyfer JOB#: [id number] / [id number]
[2019-07-28 10:22] VITALS: BP 133/65
--- NOTE | 2019-07-28 10:32 | NUR ---
SS following up with discharge planning. Pt accepted at [facility], ; fax [phone], pending insurance authorization. Discharge orders received. SS phoned and faxed discharge orders and updated clinical to [facility]. SS will await insurance authorization and will proceed accordingly with discharge planning.
--- NOTE | 2019-07-28 13:42 | NUR ---
SS following up with discharge planning. [facility] declined [facility] unit authorization. Peer to peer option offered. Pt wanting to go to [facility] unit. SS notified case assembler, Yvonne Anaya, and requested assistance scheduling peer to peer. Reference#[id number]. sales account manager scheduled peer to peer for Dr. Mai. SS will continue to follow for discharge planning.
[2019-07-28 14:23] VITALS: BP 122/60
[2019-07-28] MEDS: ACETAMINOPHEN 325 MG TABLET. PO PRN ×2 (14:59→20:29)
[2019-07-28 18:47] VITALS: BP 148/67
[2019-07-28] MEDS: FAMOTIDINE 20 MG TABLET. PO SCH (20:28)
[2019-07-28] MEDS: ALPRAZolam 0.5 MG TABLET PO PRN (20:28)
[2019-07-28] MEDS: PATCH REMOVAL. MC SCH (20:36)
[2019-07-28 22:04] VITALS: BP 112/58
[2019-07-29 03:39] VITALS: BP 126/57
[2019-07-29] MEDS: LEVOTHYROXINE 100 MCG TABLET PO SCH (06:19)
[2019-07-29 07:09] VITALS: BP 126/65
--- NOTE | 2019-07-29 08:19 | PDOC ---
Infectious Disease Note Subjective Subjective Feelings good ROS ROS no n/v/d/sob Vital Sign Vital Signs Vital Signs Date Time Temp Pulse Resp B/P (MAP) Pulse Ox O2 Delivery O2 Flow Rate FiO2 07/29/19 07:09 99.4 86 16 126/65 (85) 98 Room Air 99.4 07/28/19 20:00 2.0 Physical Exam PHYSICAL EXAM GENERAL: Sitting in the chair, alert, relaxed appearance HENT: Oral cavity dry, dentures, + ulcer LUNGS: CTA HEART: S1, S2. ABDOMEN: Soft, nontender : Kuo - out EXTREMITIES: No gross edema or cyanosis NEUROLOGIC: Alert, answers questions appropriately SKIN: Warm to touch, no rash Temp RIJ/HDC (07/16) without signs of complications Labs Micro Microbiology 07/22/19 Urine Culture - Final, Complete 07/22/19 Urine Culture Result 1 (CARINE) - Final, Complete 07/22/19 Blood Culture - Preliminary, Resulted NO GROWTH AFTER 4 DAYS Objective Assessment Fever - better - CT reviewed 07/22 with resolution. Procal elevated Sepsis from [facility] - Ecoli bacteremia 07/14 ([facility]) repeat 07/17 & neg Urinary tract infection. UC E coli (pansensitive) Leukocytosis with bandemia.- improved now abx changed 07/22, better Acute kidney injury/acute tubular necrosis.- better Nausea, vomiting, and diarrhea, resolved. Severe hyponatremia with underlying history of chronic hyponatremia. Abnormal liver function tests - better. Right pyelocaliectasis. Plan Plan of Care cholestyramine po augmentin for 5 days supportive care ok to d/c d/w JUD Cunningham MD Jul 29, 2019 08:19
--- NOTE | 2019-07-29 08:52 | NUR ---
SS following up with discharge planning. Dr. Mai completed peer to peer and pt was approved for fdc unit at [facility]. Discharge orders phoned and faxed to [facility], ; fax [phone]. Pt will discharge today and go to [facility] between 1000 and 1100. [facility] to provide transportation. Pt, pt's RN, and pt's son notified.
[2019-07-29] MEDS: AMOXICILLIN/K CLAV 875/125MG TABLET. PO SCH (08:58)
[2019-07-29] MEDS: LACTOBACILLUS RHAMNOSUS GG 1 CAPSULE. PO SCH (08:58)
[2019-07-29] MEDS: ASPIRIN ENTERIC COATED 81 MG TABLET.DR. PO SCH (08:59)
[2019-07-29] MEDS: CHOLESTYRAMINE/ASPARTAME 4 GM PACKET PO SCH (08:59)
[2019-07-29] MEDS: METOPROLOL TART IMMED RELEASE 25 MG TABLET. PO SCH (08:59)
[2019-07-29] MEDS: amLODIPine BESYLATE 10 MG TABLET PO SCH (08:59)
[2019-07-29] MEDS: LIDOCAINE (700MG/PATCH) PATCH. TD SCH (09:00)
[2019-07-29] MEDS: traMADol 50 MG TABLET PO PRN (09:04)
--- NOTE | 2019-07-29 10:26 | NUR ---
Discharge: Report called to SHELLY Jerome at [facility] [phone] at 1020. Reviewed plan of care, medications, history, follow-up, ect. All belongings with patient including clothing, shoes, cell phone, card dealer, Icy hot patches, ect. Waiting on [facility] transport to pick patient up. copy of chart sent with patient. Written prescription for Xanax and tramadol placed in packet for [place].
--- NOTE | 2019-07-29 10:43 | NUR ---
Patient assisted off of unit via wheelchair accompanied by Derik joy
== END 2019-07-29 10:45 | DRG 871 ==
LOC: 1 WEST ICU 18:55 → 2 SOUTH 07-19 20:08
PROVIDERS: ADMIT Internal Medicine; ATTEND Internal Medicine
PROC: 02HV33Z Insertion of Infusion Device into Superior Vena Cava, Percutaneous Approach (ICD-10-PCS; principal; 2019-07-16)
PROC: B548ZZA Ultrasonography of Superior Vena Cava, Guidance (ICD-10-PCS; 2019-07-16)
DX: A41.51 Sepsis due to Escherichia coli [E. coli] (principal); N17.0 Acute kidney failure with tubular necrosis; D61.818 Other pancytopenia; E22.2 Syndrome of inappropriate secretion of antidiuretic hormone; J90 Pleural effusion, not elsewhere classified; J98.11 Atelectasis; N39.0 Urinary tract infection, site not specified; R18.8 Other ascites; B96.89 Other specified bacterial agents as the cause of diseases classified elsewhere; D53.9 Nutritional anemia, unspecified; E03.9 Hypothyroidism, unspecified; E78.5 Hyperlipidemia, unspecified; E83.51 Hypocalcemia; E86.0 Dehydration; E87.6 Hypokalemia; E87.70 Fluid overload, unspecified; G89.29 Other chronic pain; I10 Essential (primary) hypertension; I48.0 Paroxysmal atrial fibrillation; M19.90 Unspecified osteoarthritis, unspecified site; M41.9 Scoliosis, unspecified; N28.1 Cyst of kidney, acquired; R65.20 Severe sepsis without septic shock; Z82.49 Family history of ischemic heart disease and other diseases of the circulatory system
CPT/HCPCS: 36415; 36556; 71045; 74176; 76937; 80048; 80053; 80061; 81001; 82550; 83605; 83615; 83735; 84100; 84145; 84443; 85007; 85014; 85018; 85025; 85027; 85045; 85049; 85379; 85384; 85610; 85730; 87040; 87086; 93005; 93306; 94640; C1769; C1892; J0696; J0878; J1160; J1940; J2020; J2185; J2248; J2405; J2543; J3480; J3490; J7620; 97110; 97116; 97530; 97535; G0378

== ENCOUNTER → 2019-08-28 | Outpatient (CLI) | payer OTHER, MEDICAID ==
[2019-07-29 07:09] VITALS: BP 126/65
[~2019-08-28] MED LIST: ALPR0.5T6 PO; AMLO10TA8 PO; AMOX1TAB61 PO; ASPI-630 PO; CHLO4TAB20 PO; CHOL4POW11 PO; LACT1POW11 PO; LEVO100T PO; LOSA100T14 PO; MELO7.5T29 PO; METO25TA4 PO; RANI150C PO; SALI44.3 MM; TRAM50TA PO
--- NOTE | 2019-08-28 15:59 | CARD ---
MR#: [id number] Date of Study: 08/28/2019 Ordering Physician: FINN DELGADO, Referring Physician: FINN DELGADO, Tech: Nery House APPROVED REPORT EXAM: Two-dimensional and M-mode echocardiogram with Doppler and color Doppler. Other Information Quality : GoodHR: 80bpm INDICATION Murmur RISK FACTORS Hypertension 2D DIMENSIONS RVDd3.6 (2.9-3.5cm)Left Atrium(2D)4.0 (1.6-4.0cm) IVSd1.1 (0.7-1.1cm)Aortic Root(2D)3.0 (2.0-3.7cm) LVDd4.4 (3.9-5.9cm)LVOT Diameter1.9 (1.8-2.4cm) PWd1.1 (0.7-1.1cm)LVDs2.5 (2.5-4.0cm) FS (%) 44.4 %SV67.4 ml LVEF(%)75.8 (>50%) Aortic Valve AoV Peak Frederic.118.9cm/sAoV VTI24.0cm AO Peak GR.5.7mmHgLVOT Peak Frederic.96.3cm/s LVOT VTI 18.99cmAO Mean GR.3mmHg LISA (VMAX)1.54gi9QBZ (VTI)2.28cm2 Mitral Valve MV E Sdwyprvh95.9cm/sMV E Peak Gr.98mmHg MV DECEL [id number] A Baziutvm09.4cm/s MV E Mean Gr.2mmHgMV ZBG08jj E/A Ratio1.1MVA (PHT)4.19cm2 TDI E/Lateral E'8.5E/Medial E'14.8 Pulmonary Valve PV Peak Pfcobgjj07.8cm/sPV Peak Grad.3mmHg Tricuspid Valve TR P. Ydaqgwry227rw/sRAP ZQIUULJI5qgAe TR Peak Gr.73neAbXITQ62inUu Pulmonary Vein S1 Hergsvef24.8cm/sD2 Xsztzcxl96.1cm/s PVa pokwsntc512vwxd LEFT VENTRICLE The left ventricle is normal size. There is mild concentric left ventricular hypertrophy. The left ve ntricular systolic function is normal and the ejection fraction is within normal range. The Ejection Fraction is 60-65%. There is normal LV segmental wall motion. Transmitral Doppler flow pattern is Gra de II-pseudonormal filling dynamics. RIGHT VENTRICLE The right ventricle is normal size. There is normal right ventricular wall thickness. The right ventr icular systolic function is normal. ATRIA The left atrium size is normal. The right atrium size is normal. The interatrial septum is intact wit h no evidence for an atrial septal defect or patent foramen ovale as noted on 2-D or Doppler imaging. AORTIC VALVE The aortic valve is thickened but opens well. Doppler and Color Flow revealed trace aortic regurgitat ion. There is no significant aortic valvular stenosis. MITRAL VALVE The mitral valve is normal in structure and function. There is no evidence of mitral valve prolapse. There is no mitral valve stenosis. Doppler and Color-flow revealed mild mitral regurgitation. TRICUSPID VALVE The tricuspid valve is normal in structure and function. Doppler and Color Flow revealed trace tricus pid regurgitation with an estimated PAP of 30 mmHg. There is no tricuspid valve stenosis. PULMONIC VALVE The pulmonic valve is not well visualized. Doppler and Color Flow revealed trace to mild pulmonic arie vular regurgitation. There is no pulmonic valvular stenosis. GREAT VESSELS The aortic root is normal in size. The IVC is normal in size and collapses >50% with inspiration. PERICARDIAL EFFUSION There is no evidence of significant pericardial effusion. Critical Notification Critical Value: No <Conclusion> The left ventricular systolic function is normal and the ejection fraction is within normal range. Th e Ejection Fraction is 60-65%. There is normal LV segmental wall motion. Signed by : Jeremiah Mercado, Electronically Approved : 08/28/2019 15:59:27
== END | disposition home or self-care (01) ==
LOC: ECHO 15:00
PROVIDERS: ATTEND Internal Medicine Cardiovascular Disease
DX: I08.8 Other rheumatic multiple valve diseases (principal); I10 Essential (primary) hypertension
CPT/HCPCS: 93306

== ENCOUNTER → 2019-11-11 | Outpatient (CLI) | payer MEDICARE, MEDICAID ==
--- NOTE | 2019-11-11 17:00 | KCIC ---
Bone mineral density exam History: Postmenopausal, osteoporosis Comparison: 10/02/2017 Findings: Bone mineral density examination utilizing DEXA was performed. Left hip bone mineral density of 0.649 g/cm2 corresponds with a T score -2.4, Z score -0.8. There has been 3.4% increase. The bone mineral density of the lumbar spine was 1.065 g/cm2 which corresponds with a T-score of 0.2, Z score 2.4. There has been 1.2% increase. By World Congress on Osteoporosis criteria, a T score of 0 to-1 SD is considered to be within normal limits. A T score of -1 to -2.5 SD is considered osteopenia. A T score less than -2.5 SD is considered osteoporosis Impression: 1. There is osteopenia of the left hip. Bone mineral density of the lumbar spine is within normal limits although may be artificially elevated due to the presence of degenerative change and scoliosis. Electronically signed by: Juni Sutton MD (11/11/2019 4:57 PM) [id number]
== END | disposition home or self-care (01) ==
LOC: KCIC DEXA 15:35
PROVIDERS: ATTEND Family Medicine
DX: M81.0 Age-related osteoporosis without current pathological fracture (principal); M85.88 Other specified disorders of bone density and structure, other site; M47.896 Other spondylosis, lumbar region; M41.56 Other secondary scoliosis, lumbar region; Z78.0 Asymptomatic menopausal state
CPT/HCPCS: 77080

== ENCOUNTER → 2020-09-12 | Outpatient (CLI) | payer MEDICARE, MEDICAID ==
[~2020-09-12] MED LIST changes: +AMLO-187 PO; -AMLO10TA8 PO; +FERR-36 PO; +IBAN150T15 PO; +LEVO-101 PO; -LEVO100T PO
== END ==
LOC: LAB 11:02
PROVIDERS: ATTEND Internal Medicine Gastroenterology
DX: Z01.812 Encounter for preprocedural laboratory examination (principal); D64.9 Anemia, unspecified; Z20.828 Contact with and (suspected) exposure to other viral communicable diseases
CPT/HCPCS: U0003

== ENCOUNTER → 2020-09-15 | Day surgery (SDC) | payer MEDICARE, MEDICAID ==
[~2020-09-15] MED LIST changes: -FERR-36 PO; +IV RINGERS,LACTATED 1000ML 1,000 ML IV SCH; +LIDOCAINE 2% PF 5 ML VIAL. ONE; +PROPOFOL 10 MG/ML (20ML) VIAL. IV ONE
[2020-09-15 11:05] VITALS: BP 140/56
--- NOTE | 2020-09-19 15:31 | PATHOLOGY ---
[facility] Accession Number: [id number] . 01 Material submitted: . PART A: small bowel - SMALL BOWEL BX PART B: gastrointestinal site - GASTRIC ANTRUM BODY BX PART C: esophagus - DISTAL ESOPHAGUS BX. Modifiers: distal . 02 Diagnosis: A. Small bowel biopsies: - No significant pathologic abnormalities. . B. Gastric biopsies, gastric antrum and gastric body: - Chronic gastritis, mild. . C. Esophageal biopsies, distal esophagus: - Reflux esophagitis. (JPM:marshall 09/19/2020) [facility] 09/19/2020 1440 Local . 02 Comment: Sections of the small bowel biopsy reveal segments of duodenal mucosa. Where best oriented, the mucosal villi show no sprue-like changes or significant inflammatory changes. . Sections of the gastric biopsy reveal segments of gastric antral and gastric body mucosa. The latter shows superficial congestion and mild chronic inflammation. The gastric antral mucosa shows congestion and mild chronic inflammation with focal presence of a lymphoid aggregate within the base of the mucosa. A properly controlled immunoperoxidase stain for Helicobacter is negative for Helicobacter organisms. . Sections of the distal esophageal biopsy reveal multiple segments of hyperplastic squamous esophageal mucosa showing focal mild chronic inflammation with admixed eosinophils. There is also a segment of gastric mucosa showing congestion and mild to moderate chronic inflammation. The findings are consistent with reflux esophagitis. There is no evidence of Escalante's change, dysplasia, or malignancy. (JPM:pit 09/19/2020) . Special stain performed: Immunoperoxidase for Helicobacter on B1. . 02 Electronically signed: . Jordan Garcia MD, Pathologist NPI- [id number] . 01 Gross description: . A. The specimen is received in formalin, labeled "Tami Singh, small bowel BX" and consists of 3 fragments of pink-jung tissue measuring between 0.3 x 0.2 cm and 0.5 x 0.2 cm which are entirely submitted in A1. . B. The specimen is received in formalin, labeled "FranciscoTami, gastric antrum and body BX" and consists of 4 fragments of pink-jung tissue measuring between 0.2 x 0.2 cm and 0.6 x 0.3 cm which are entirely submitted in B1. . C. The specimen is received in formalin, labeled "[place], [place], distal esophagus BX" and consists of multiple fragments of jung tissue measuring 1.1 x 0.5 x 0.3 cm in aggregate which are entirely submitted in C1. (SDY; 09/16/2020) SYU/SYU 09/16/2020 1622 Local . 02 Pathologist provided ICD-10: K29.50, K21.00, D64.9 . 02 CPT . 216473, 480257, 093802, Q50326 Specimen Comment: A courtesy copy of this report has been sent to [phone] Specimen Comment: Report sent to Performed at: 01 [facility] [address], [place] [id number] MD Hari Garcia MD Phone: [phone] Performed at: 02 [facility] [address], [place] [id number] MD Jordan Garcia MD Phone: [phone]
== END | disposition home or self-care (01) ==
LOC: SURG 09:07
PROVIDERS: ATTEND Internal Medicine Gastroenterology
DX: D50.9 Iron deficiency anemia, unspecified (principal); K21.00 Gastro-esophageal reflux disease with esophagitis, without bleeding; K31.89 Other diseases of stomach and duodenum; K29.50 Unspecified chronic gastritis without bleeding; I10 Essential (primary) hypertension; E78.00 Pure hypercholesterolemia, unspecified; M19.90 Unspecified osteoarthritis, unspecified site; M81.0 Age-related osteoporosis without current pathological fracture; E03.9 Hypothyroidism, unspecified; Z79.82 Long term (current) use of aspirin; Z79.899 Other long term (current) drug therapy; Z98.890 Other specified postprocedural states
CPT/HCPCS: 43239; 88305; 88342; J2704

== ENCOUNTER → 2020-11-08 | Outpatient (CLI) | payer MEDICARE, MEDICAID ==
[2020-09-15 11:05] VITALS: BP 140/56
[~2020-11-08] MED LIST changes: -IV RINGERS,LACTATED 1000ML 1,000 ML IV SCH; -LIDOCAINE 2% PF 5 ML VIAL. ONE; -PROPOFOL 10 MG/ML (20ML) VIAL. IV ONE
--- NOTE | 2020-11-08 16:57 | KCIC ---
Bilateral digital screening mammograms with 3-D tomosynthesis: Reason for examination: Routine screening. Comparison is made to previous studies dated back to 09/29/2014. Bilateral mammograms in CC and oblique projections were obtained with 2-D imaging and 3-D tomosynthes is imaging on a Siemens Inspiration unit and reviewed on the workstation. Interpretation was made wit h the benefit of CAD. The skin and nipples show no abnormalities. No abnormal axillary lymph nodes are seen. The breast par enchyma is extremely dense. (Breast density: Category D.) There appear to be small nodular parenchyma l densities bilaterally in the superior breast seen on oblique views only. Further evaluation with ul trasound examinations bilaterally of the superior breast is recommended. There are no other dominant masses, suspicious calcifications or architectural distortion. Benign calcifications are present. Impression: Small nodular parenchymal densities seen bilaterally in the superior breast. Recommend further evalua tion with bilateral breast ultrasound. Your patient's mammogram demonstrates that she has dense breast tissue (breast density category C or D), which could hide abnormalities, and if she has other risk factors for breast cancer that have bee n identified, she might benefit from supplemental screening tests that may be suggested by you as her ordering physician. Dense breast tissue, in and of itself, is a relatively common condition. Therefo re, this information is not provided to cause undue concern, but rather to raise your awareness and t o promote discussion with your patient regarding the presence of other risk factors, in addition to d ense breast tissue. Your patient's mammography results will be sent to her. BI-RAD Category 0: Incomplete. Needs additional imaging evaluation. "Our facility is accredited by the [employer] Mammography [employer]." This patient's information has been entered into a reminder system for the patient to be notified wit h the results of her examination and a target date for the next mammogram. Electronically signed by: Cindy Cowan MD (11/08/2020 4:55 PM) [email or web address]
== END ==
LOC: KCIC MAMMO 11:03
PROVIDERS: ATTEND Nurse Practitioner Gerontology
DX: Z12.31 Encounter for screening mammogram for malignant neoplasm of breast (principal); N64.89 Other specified disorders of breast
CPT/HCPCS: 77063; 77067

== ENCOUNTER → 2020-11-29 | Outpatient (CLI) | payer MEDICARE, MEDICAID ==
[2020-09-15 11:05] VITALS: BP 140/56
[~2020-11-29] MED LIST changes: +FERR-36 PO
--- NOTE | 2020-11-30 12:25 | RAD ---
Examination: Bilateral breast ultrasound INDICATION: Screening recall for bilateral nodular parenchymal densities. COMPARISON: 11/08/2020, 08/26/2019, and 08/24/2018, 09/27/2016 and 09/29/2014 mammograms. TECHNIQUE: Grayscale ultrasound imaging of both breasts in the areas of mammographic interest targeti ng the superior bilateral breast. FINDINGS: Heterogeneously dense breast parenchyma on ultrasound with no dominant mass, suspicious sonographic f indings or axillary adenopathy. In the right breast, sonographic survey was performed a benign, 12 an d 3:00 positions anterior, mid and posterior depth. In the left breast, similar positions were also a ssessed by ultrasound. IMPRESSION: Negative bilateral breast ultrasound. No evidence of malignancy. Recommend return to routine screening next due in one year. BI-RADS Category 1 Negative Patient entered into a reminder system with targeted due date for next mammogram. Electronically signed by: Barbara Vee MD (11/30/2020 12:23 PM) [id number]
== END ==
LOC: US 10:55
PROVIDERS: ATTEND Family Medicine
DX: R92.8 Other abnormal and inconclusive findings on diagnostic imaging of breast (principal)
CPT/HCPCS: 76641-50

== ENCOUNTER → 2020-12-01 | Day surgery (SDC) | payer MEDICARE, MEDICAID ==
[~2020-12-01] MED LIST changes: +GLYCOPYRROLATE 1 MG/5 ML SYRINGE. ONE; +IV RINGERS,LACTATED 1000ML 1,000 ML IV SCH; +LIDOCAINE 2% PF 5 ML VIAL. ONE; +PROPOFOL 10 MG/ML (20ML) VIAL. IV ONE
[2020-12-01 11:37] VITALS: BP 162/81
--- NOTE | 2020-12-01 11:40 | PREOP HP ---
DATE OF SERVICE: 12/01/2020 REQUESTING PHYSICIAN: Liborio Barahona MD PRIMARY CARE PHYSICIAN: Liborio Barahona MD. REASON FOR PROCEDURE: Iron deficiency anemia. HISTORY OF PRESENT ILLNESS: This is a 70-year-old female who presents for iron deficiency anemia. She has had an upper endoscopy that was unrevealing. She is to undergo colonoscopy for further evaluation. The risks and benefits including bleeding, perforation, non-diagnosis and sedation were explained and she has agreed to proceed. MEDICATIONS: Propofol per anesthesia. ALLERGIES: No known drug allergies. MEDICATIONS: MAR reviewed for medications. FAMILY MEDICAL HISTORY: No colon cancer. REVIEW OF SYSTEMS: A 13-point review of systems was done. It is positive as per HPI and otherwise negative. PHYSICAL EXAMINATION: VITAL SIGNS: She is afebrile and her vital signs are stable. GENERAL: She is a well-developed, well-nourished female, in no apparent distress. HEENT: Oropharynx is clear. CARDIOVASCULAR: S1, S2. LUNGS: Clear. ABDOMEN: Normoactive bowel sounds, soft, nontender, nondistended. EXTREMITIES: No edema. NEUROLOGIC: Awake, alert and oriented x 3. ASSESSMENT AND PLAN: Iron deficiency anemia. She is to undergo colonoscopy for further evaluation. The risks and benefits of the procedure including bleeding, perforation, non-diagnosis and sedation were explained and she has agreed to proceed. JUAN SÁNCHEZ MD DR: BRUCE/jennyfer JOB#: [id number] / [id number]
== END | disposition home or self-care (01) ==
LOC: SURG 09:39
PROVIDERS: ATTEND Internal Medicine Gastroenterology
DX: D50.9 Iron deficiency anemia, unspecified (principal); K64.0 First degree hemorrhoids; K21.9 Gastro-esophageal reflux disease without esophagitis; I10 Essential (primary) hypertension; E78.00 Pure hypercholesterolemia, unspecified; E03.9 Hypothyroidism, unspecified; M19.90 Unspecified osteoarthritis, unspecified site; M81.0 Age-related osteoporosis without current pathological fracture; Z79.899 Other long term (current) drug therapy; Z98.890 Other specified postprocedural states; Z20.822 Contact with and (suspected) exposure to COVID-19
CPT/HCPCS: 45378; 87426; J2704; J3490

== ENCOUNTER → 2021-11-15 | Outpatient (CLI) | payer MEDICARE, MEDICAID ==
[2020-12-01 11:37] VITALS: BP 162/81
[~2021-11-15] MED LIST changes: -GLYCOPYRROLATE 1 MG/5 ML SYRINGE. ONE; -IV RINGERS,LACTATED 1000ML 1,000 ML IV SCH; -LIDOCAINE 2% PF 5 ML VIAL. ONE; -PROPOFOL 10 MG/ML (20ML) VIAL. IV ONE
--- NOTE | 2021-11-15 14:07 | KCIC ---
Bilateral digital screening mammograms with 3-D tomosynthesis: Reason for examination: Routine screening. Comparison is made to previous studies dated back to 09/29/2014. Bilateral mammograms in CC and oblique projections were obtained with 2-D imaging and 3-D tomosynthes is imaging on a Siemens Inspiration unit and reviewed on the workstation. Interpretation was made wit h the benefit of CAD. The skin and nipples show no abnormalities. No abnormal axillary lymph nodes are seen. The breast par enchyma is extremely dense. (Breast density: Category D.) There are no dominant masses, suspicious ca lcifications or architectural distortion. Benign calcifications are present. Impression: No evidence of malignancy. Recommend routine screening. Your patient's mammogram demonstrates that she has dense breast tissue (breast density category C or D), which could hide abnormalities, and if she has other risk factors for breast cancer that have bee n identified, she might benefit from supplemental screening tests that may be suggested by you as her ordering physician. Dense breast tissue, in and of itself, is a relatively common condition. Therefo re, this information is not provided to cause undue concern, but rather to raise your awareness and t o promote discussion with your patient regarding the presence of other risk factors, in addition to d ense breast tissue. Your patient's mammography results will be sent to her. BI-RAD Category 2: Benign. "Our facility is accredited by the [employer] Mammography Program." This patient's information has been entered into a reminder system for the patient to be notified wit h the results of her examination and a target date for the next mammogram. Electronically signed by: Cindy Cowan MD (11/15/2021 2:04 PM) [email or web address]
== END ==
LOC: KCIC MAMMO 10:36
PROVIDERS: ATTEND Family Medicine
DX: Z12.31 Encounter for screening mammogram for malignant neoplasm of breast (principal)
CPT/HCPCS: 77063; 77067